=== PATIENT | male | born 1945 | race Caucasian/White ===

== ENCOUNTER 2019-10-29 13:37 | Outpatient (CLI) | payer MEDICARE, SELFPAY ==
[2019-10-29 15:01] LABS: Prostate Specific Antigen < 0.1 ng/mL (< OR = 4.0)
== END 2019-10-29 13:38 | disposition home or self-care (01) ==
LOC: CHSLAB 13:46
PROVIDERS: PCP Internal Medicine
DX: C61 Malignant neoplasm of prostate (principal)
CPT/HCPCS: 36415; 84153

== ENCOUNTER 2019-12-14 12:58 | Outpatient (CLI) | payer MEDICARE, OTHER, SELFPAY | END 2019-12-14 12:59 | disposition home or self-care (01) | LOC: CHSTREATRM 13:02 | PROVIDERS: PCP Internal Medicine; Visit Provider Internal Medicine | DX: D50.9 Iron deficiency anemia, unspecified (principal) | CPT/HCPCS: 96365; 96366; J1756; J7050 ==

== ENCOUNTER 2019-12-21 11:29 | Outpatient (CLI) | payer MEDICARE, OTHER, SELFPAY ==
[2019-12-21] MEDS: IRON SUCROSE COMPLEX 250 MG in SODIUM CHLORIDE 0.9% IV 250 ML 125 MG IVPB (12:03)
--- NOTE | 2019-12-21 14:13 | PC.NURSE ---
Patient here for #2 of 2 Venofer infusions. No concerns. Venofer infusion administered. Tolerated it well. Safe exit of hospital.
== END 2019-12-21 11:30 | disposition home or self-care (01) ==
PROVIDERS: PCP Internal Medicine; Visit Provider Internal Medicine
DX: D50.9 Iron deficiency anemia, unspecified (principal)
CPT/HCPCS: 96365; 96366; J1756; J7050

== ENCOUNTER 2020-05-06 08:30 | Outpatient (CLI) | payer MEDICARE, SELFPAY ==
[2020-05-06 10:22] LABS: Prostate Specific Antigen < 0.1 ng/mL (< OR = 4.0)
[2020-05-10 09:03] LABS: Testosterone Total 9 ng/dL (250-1100)
== END 2020-05-06 08:31 | disposition home or self-care (01) ==
LOC: CHSLAB 08:33
PROVIDERS: PCP Internal Medicine
DX: C61 Malignant neoplasm of prostate (principal)
CPT/HCPCS: 36415; 84153; 84403

== ENCOUNTER 2020-08-15 15:28 | Emergency (ER) | payer MEDICARE, OTHER, SELFPAY ==
--- NOTE | ~2020-08-15 | XR_ITS ---
EXAMINATION: XR chest 2V DATE: 08/15/2020 16:40 INDICATION: Shortness of breath and cough. TECHNIQUE: Frontal and lateral views of the chest were obtained. COMPARISON: Chest single view 08/20/2014, CT abdomen and pelvis 04/05/2019 FINDINGS: There is mild atelectasis at left lung base. No pleural effusion or pneumothorax. The heart size is normal. There are surgical clips in the abdomen. IMPRESSION: 1. Mild atelectasis at left lung base. Reviewed, dictated and finalized at location A. AMMONIA OPERATOR
[2020-08-15 15:30] VITALS: BP 90/62; PULSE 86; RESP 18; TEMP 36.3; O2SAT 97
[2020-08-15 16:00] VITALS: PULSE 86; RESP 16; O2SAT 98
[2020-08-15 16:02] LABS: Basophils Absolute Auto 0.02 K/mm3 (0.00-0.10); Basophils Percent Auto 0.2 % (0.0-1.0); Eosinophils Absolute Auto 0.02 K/mm3 (0.02-0.50); Eosinophils Percent Auto 0.2 % (1.0-6.0); Hematocrit 38.5 % (37.0-46.0); Hemoglobin 12.5 g/dL (12.4-15.3); Immature Granulocyte Absolute 0.05 K/mm3 (0.00-0.00); Immature Granulocyte Percent A 0.4 % (0.0-0.0); Lymphocytes Absolute Auto 0.81 K/mm3 (1.10-4.50); Lymphocytes Percent Auto 7.2 % (18.0-42.0); Mean Corpuscular HGB Conc 32.5 g/dL (32.0-36.0); Mean Corpuscular Hemoglobin 36.9 pg (27.0-31.0); Mean Corpuscular Volume 113.6 fL (78.0-102.0); Mean Platelet Volume 9.1 fl (8.7-11.0); Monocytes Absolute Auto 0.61 K/mm3 (0.10-0.90); Monocytes Percent Auto 5.5 % (2.0-11.0); Neutrophils Absolute Auto 9.7 K/mm3 (1.7-7.2); Neutrophils Percent Auto 86.5 % (50.0-70.0); Platelet Count Result 161 K/mm3 (150-420); Red Blood Count 3.39 M/mm3 (4.70-6.10); White Blood Count 11.2 K/mm3 (4.8-10.8)
[2020-08-15 16:07] VITALS: PULSE 85; RESP 16; O2SAT 99
[2020-08-15] MEDS: IPRATROPIUM 0.5 MG/ALBUTEROL SULFATE 2.5 MG AMPUL.NEB 3 ML INHALATION (16:07)
[2020-08-15 16:16] LABS: Alanine Aminotransferase 16 U/L (16-63); Albumin Level 3.6 g/dL (3.4-5.0); Alkaline Phosphatase 62 U/L (46-116); Anion Gap 13 mmol/L (8-16); Aspartate Amino Transferase 21 U/L (15-37); Bilirubin,Total 0.4 mg/dL (0.00-1.00); Blood Urea Nitrogen 29 mg/dL (7-18); Calcium 9.8 mg/dL (8.5-10.1); Carbon Dioxide 19 mmol/L (21-32); Chloride 105 mmol/L (98-108); Estimated CRCL calculation 42 ml/min; Estimated Glomerular Filt Rate 49; Glucose 98 mg/dL (70-99); Osmolality Calculated 289 mOsm/kg (285-295); Sodium 137 mmol/L (136-145); Total Protein 6.9 g/dL (6.4-8.2)
[2020-08-15 16:19] LABS: BNP 189 pg/mL (0-100); SARS-CoV-2 Ag Negative (Negative)
[2020-08-15 16:20] LABS: Influenza Control Valid (Valid)
[2020-08-15 16:21] LABS: Lactic Acid Reflex 1.2 mmol/L (0.4-2.0)
--- NOTE | 2020-08-15 16:47 | ED.URI ---
HPI - URI/Sore Throat General Chief Complaint: Upper Respiratory Infection Stated Complaint: chest congestion,cough,head congestion Source: patient Mode of arrival: ambulatory Limitations: no limitations History of Present Illness HPI Narrative: This is a 74-year-old presents with a 2 day history of mild shortness of breath with a cough that is productive of white sputum has a history of COPD and CHF currently there is no audible wheezing no fever chills no chest pain or pressure no peripheral edema no nausea vomiting no abdominal pain no COVID exposure. MD elicited complaint: cough, sore throat, rhinorrhea and nasal congestion Onset (ago): day(s) Severity: mild Description of mucous: clear Able to tolerate fluids by mouth: Yes Exacerbating factors: exertion Relieving factors: rest Associated symptoms: shortness of breath Related Data Home Medications Medication Instructions Recorded Confirmed acyclovir 400 mg PO TID 08/15/20 08/15/20 albuterol sulfate [ProAir HFA] 2 puff INHALATION QID PRN 08/15/20 08/15/20 aspirin 81 mg PO DAILY 08/15/20 08/15/20 atenolol 50 mg PO DAILY 08/15/20 08/15/20 bicalutamide 50 mg PO DAILY 08/15/20 08/15/20 cetirizine 5 mg PO DAILY 08/15/20 08/15/20 cholecalciferol (vitamin D3) 25 mcg PO DAILY 08/15/20 08/15/20 [Vitamin D3] clopidogrel 75 mg PO DAILY 08/15/20 08/15/20 cyanocobalamin (vitamin B-12) 1,000 mcg MONTHLY 08/15/20 08/15/20 gabapentin 300 mg PO TID 08/15/20 08/15/20 hydrocodone-acetaminophen 1 tablet PO Q6H PRN 08/15/20 08/15/20 montelukast 10 mg PO DAILY 08/15/20 08/15/20 pantoprazole 40 mg PO QAM 08/15/20 08/15/20 pravastatin 10 mg PO HS 08/15/20 08/15/20 prednisone 5 mg PO DAILY 08/15/20 08/15/20 spironolactone 25 mg PO DAILY 08/15/20 08/15/20 tiotropium-olodaterol [Stiolto 2 puff INHALATION DAILY 08/15/20 08/15/20 Respimat] venlafaxine 75 mg PO QPM 08/15/20 08/15/20 verapamil 120 mg PO HS 08/15/20 08/15/20 Allergies Allergy/AdvReac Type Severity Reaction Status Date / Time lisinopril Allergy Severe Swelling Verified 07/03/18 09:46 meperidine Allergy Severe Dyspnea / Verified 07/03/18 09:46 SOB ciprofloxacin Allergy Mild Itching Verified 07/03/18 09:46 Review of Systems Review of Systems: All systems reviewed & are unremarkable except as noted in HPI and below PMFSH Past Medical History Medical History CHF (congestive heart failure) COPD (chronic obstructive pulmonary disease) Family History Family History Father Hypertension Family history of arthritis Family history of malignant neoplasm Social History Social History Smoking status: Heavy tobacco smoker Exam Const: General: no acute distress and alert Orientation/consciousness: patient oriented x3 HENMT: Head: normal to inspection Eyes: Conjunctivae: conjunctivae normal Pupils: Equal, round and reactive pupils present Neck: Neck: normal visual inspection Chest: Chest palpation & inspection: normal inspection of the chest Resp: Effort & Inspection: normal respiratory effort Auscultation: clear to auscultation bilaterally Cardio: Rate: regular rate Rhythm: regular rhythm GI: GI Palp: Yes Soft to palpation Auscultation: normal bowel sounds Urinary Catheter: Urinary Catheter: patent and draining Skin: General skin exam: normal color Rashes: no rashes Extrem: General: normal to inspection and no pedal edema Psych: Appearance: grossly normal Mental Status: mental status grossly normal Course Course Emergency Course: reassessment of patient appears comfortable after a nebulizer treatment and inform patient of lab and x-ray results. Vital Signs Vital signs: Vital Signs Temperature 36.3 C L 08/15/20 15:30 Pulse Rate 86 08/15/20 15:30 Respiratory Rate 18 08/15/20 15:30 Blood Pressure 90/62 L 08/15/20 1
[2020-08-15 17:01] VITALS: BP 135/71; PULSE 85; RESP 14; O2SAT 95
[2020-08-15] MEDS: AZITHROMYCIN 250 MG TABLET 500 MG PO (17:05)
== END 2020-08-15 17:08 | disposition home or self-care (01) ==
PROVIDERS: Emergency Provider Emergency Medicine; PCP Internal Medicine
DX: J40 Bronchitis, not specified as acute or chronic (principal); J44.9 Chronic obstructive pulmonary disease, unspecified
CPT/HCPCS: 36415; 71046; 80053; 83605; 83880; 85025; 87040; 87426; 87804; 94640; 99283; A9270

== ENCOUNTER 2020-09-01 12:03 | Outpatient (CLI) | payer MEDICARE, SELFPAY ==
[2020-09-01 13:07] LABS: SARS-CoV-2 Ag Negative (Negative)
== END 2020-09-01 12:04 | disposition home or self-care (01) ==
LOC: CHSLAB 12:05
PROVIDERS: PCP Internal Medicine; Visit Provider Internal Medicine
DX: Z20.828 Contact with and (suspected) exposure to other viral communicable diseases (principal)
CPT/HCPCS: 87426

== ENCOUNTER 2020-09-23 14:18 | Outpatient (CLI) | payer MEDICARE, SELFPAY ==
[2020-09-23 14:57] LABS: SARS-CoV-2 Ag Negative (Negative)
== END 2020-09-23 14:19 | disposition home or self-care (01) ==
LOC: CHSLAB 14:20
PROVIDERS: PCP Internal Medicine; Visit Provider Internal Medicine
DX: Z20.828 Contact with and (suspected) exposure to other viral communicable diseases (principal)
CPT/HCPCS: 87426; C9803

== ENCOUNTER 2020-10-27 13:13 | Outpatient (CLI) | payer MEDICARE, SELFPAY ==
--- NOTE | ~2020-10-27 | XR_ITS ---
EXAMINATION: XR chest 2V 10/27/2020 14:07 INDICATION: Cough with fatigue. Covid exposure. PROCEDURE: 2 view chest COMPARISON: Comparison to multiple prior studies sequentially, with oldest reviewed study dated 07/21. FINDINGS: The lungs are clear. The lungs are hyperinflated which is consistent with, but not diagnost ic of chronic obstructive pulmonary disease. The cardiomediastinal silhouette is within normal limits . There are no pleural effusions. There is no pneumothorax suspected. IMPRESSION: 1: NO ACUTE CARDIOPULMONARY DISEASE. Reviewed, dictated and finalized at location B. ESTIMATOR
[2020-10-27 14:51] LABS: BNP 269 pg/mL (0-100)
[2020-10-27 14:55] LABS: Anion Gap 11 mmol/L (8-16); Blood Urea Nitrogen 28 mg/dL (7-18); Calcium 9.8 mg/dL (8.5-10.1); Carbon Dioxide 23 mmol/L (21-32); Chloride 106 mmol/L (98-108); Estimated Glomerular Filt Rate 52; Glucose 109 mg/dL (70-99); Osmolality Calculated 296 mOsm/kg (285-295); Potassium 4.8 mmol/L (3.5-5.1); Sodium 140 mmol/L (136-145)
[2020-10-27 14:56] LABS: Alanine Aminotransferase 31 U/L (16-63); Albumin Level 3.9 g/dL (3.4-5.0); Alkaline Phosphatase 66 U/L (46-116); Aspartate Amino Transferase 26 U/L (15-37); Bilirubin,Total 0.3 mg/dL (0.00-1.00); Total Protein 6.8 g/dL (6.4-8.2)
[2020-10-27 14:59] LABS: SARS-CoV-2 Ag Positive (Negative)
[2020-10-27 15:01] LABS: Hematocrit 39.2 % (37.0-46.0); Hemoglobin 12.5 g/dL (12.4-15.3); Mean Corpuscular HGB Conc 31.9 g/dL (32.0-36.0); Mean Corpuscular Hemoglobin 36.3 pg (27.0-31.0); Red Blood Count 3.44 M/mm3 (4.70-6.10); White Blood Count 6.5 K/mm3 (4.8-10.8)
[2020-10-27 15:02] LABS: Basophils Percent Auto 0.6 % (0.0-1.0); Eosinophils Percent Auto 0.8 % (1.0-6.0); Immature Granulocyte Percent A 0.6 % (0.0-0.0); Lymphocytes Percent Auto 13.3 % (18.0-42.0); Mean Platelet Volume 9.7 fl (8.7-11.0); Monocytes Percent Auto 9.6 % (2.0-11.0); Neutrophils Percent Auto 75.1 % (50.0-70.0); Platelet Count Result 171 K/mm3 (150-420); Red Cell Distribution Width 12.6 % (11.6-14.4)
[2020-10-27 15:03] LABS: Basophils Absolute Auto 0.04 K/mm3 (0.00-0.10); Eosinophils Absolute Auto 0.05 K/mm3 (0.02-0.50); Immature Granulocyte Absolute 0.04 K/mm3 (0.00-0.00); Lymphocytes Absolute Auto 0.86 K/mm3 (1.10-4.50); Monocytes Absolute Auto 0.62 K/mm3 (0.10-0.90); Neutrophils Absolute Auto 4.9 K/mm3 (1.7-7.2)
== END 2020-10-27 13:14 | disposition home or self-care (01) ==
PROVIDERS: PCP Family Medicine; Visit Provider Family Medicine
DX: U07.1 COVID-19 (principal); R05 Cough; Z20.822 Contact with and (suspected) exposure to COVID-19; R53.83 Other fatigue; R06.02 Shortness of breath
CPT/HCPCS: 36415; 71046; 80053; 83880; 85025; 87426; C9803

== ENCOUNTER 2020-10-28 12:23 | Outpatient (CLI) | payer MEDICARE, OTHER, SELFPAY ==
[2020-10-28 13:00] VITALS: BP 140/70; PULSE 80; RESP 16; TEMP 36.4; O2SAT 96
[2020-10-28] MEDS: diphenhydrAMINE HCl CAP 25 MG CAPSULE PO (13:07)
[2020-10-28] MEDS: ACETAMINOPHEN 325 MG TABLET 650 MG PO (13:07)
[2020-10-28] MEDS: FAMOTIDINE 20 MG TABLET PO (13:08)
[2020-10-28 14:40] VITALS: BP 160/80; PULSE 64; RESP 14; TEMP 36.3; O2SAT 95
--- NOTE | 2020-10-28 14:43 | PC.NURSE ---
Patient here for Bamlanivimab IV infusion r/t covid + with high risk factors. Permit signed. Education given on medication. Bamlanivimab regimen administered. Tolerated well. No s/sx of reaction noted or reported. Safe exit of hospital.
== END 2020-10-28 12:24 | disposition home or self-care (01) ==
PROVIDERS: PCP Internal Medicine; Visit Provider Internal Medicine
DX: Z23 Encounter for immunization (principal); U07.1 COVID-19; R05 Cough; R51.9 Headache, unspecified; R06.02 Shortness of breath
CPT/HCPCS: 96365; A9270; J7050; M0239; Q0239

== ENCOUNTER 2020-12-01 15:08 | Outpatient (CLI) | payer MEDICARE, SELFPAY ==
[2020-12-01 16:46] LABS: Prostate Specific Antigen < 0.1 ng/mL (< OR = 4.0)
[2020-12-05 00:05] LABS: Testosterone Total 21 ng/dL (250-1100)
== END 2020-12-01 15:09 | disposition home or self-care (01) ==
LOC: CHSLAB 15:10
PROVIDERS: PCP Internal Medicine; Visit Provider Radiology Radiation Oncology
DX: C61 Malignant neoplasm of prostate (principal)
CPT/HCPCS: 36415; 84153; 84403

== ENCOUNTER 2021-02-09 20:18 | Emergency (ER) | payer MEDICARE, OTHER, SELFPAY ==
[2021-02-09 20:20] VITALS: BP 138/75; PULSE 84; RESP 20; TEMP 36.9; O2SAT 97
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
[2021-02-09] MEDS: cefTRIAXone 1 GM VIAL IM (21:00)
[2021-02-09] MEDS: NEOMYCIN/POLYMYXIN/BACITRACIN OINTMENT PACKET 1 PACKET TOPICAL (21:00)
[2021-02-09] MEDS: TETANUS,DIPHTHERIA,AC PERTUSSIS ADULT 0.5 ML (ADACEL) IM (21:00)
[2021-02-09 21:15] VITALS: BP 128/76; PULSE 76; RESP 20; TEMP 37; O2SAT 94
--- NOTE | 2021-02-09 21:22 | PC.NURSE ---
pt has bilateral arm skin tears as listed: Right forearm =2cm right forearm= 6 cm right top of hand=0.5cm right elbow=0.2cm left forearm=4cm left top hand=3cm left top hand=4 cm left wrist=1cm left hand=1cm close to knuckle 3rd digit left hand =1cm close to knuckle 2nd digit all wounds cleansed with wound cleanser, dried, edges placed together and steri strips applied.
== END 2021-02-09 21:15 | disposition home or self-care (01) ==
PROVIDERS: Emergency Provider Emergency Medicine; PCP Internal Medicine
DX: S51.812A Laceration without foreign body of left forearm, initial encounter (principal); S51.811A Laceration without foreign body of right forearm, initial encounter; Y04.0XXA Assault by unarmed brawl or fight, initial encounter
CPT/HCPCS: 90471; 90715; 96372; 99283; J0696

== ENCOUNTER 2021-03-03 13:16 | Outpatient (CLI) | payer MEDICARE, SELFPAY ==
[2021-03-03 14:42] LABS: SARS-CoV-2 RNA PCR Negative (Negative)
== END 2021-03-03 13:17 | disposition home or self-care (01) ==
LOC: CHSLAB 13:18
PROVIDERS: PCP Internal Medicine; Visit Provider Internal Medicine
DX: Z20.822 Contact with and (suspected) exposure to COVID-19 (principal)
CPT/HCPCS: C9803; U0003; U0005

== ENCOUNTER 2021-04-23 17:21 | Inpatient (IN) | payer MEDICARE, OTHER, SELFPAY ==
[2021-04-23] VITALS (10 sets, daily range): BP systolic 116–122; BP diastolic 68–77; PULSE 87–91; RESP 20–26; TEMP 37.7; O2SAT 95–99
--- NOTE | ~2021-04-23 | CT_ITS ---
EXAMINATION: CT abdomen pelvis wo con DATE: 04/24/2021 01:08 INDICATION: Abdominal pain TECHNIQUE: Computed tomography (CT) of the abdomen and pelvis was performed without intravenous contr ast. Automated exposure control and iterative reconstruction technique were employed. Exam dose: 594 .90 mGy-cm total exam DLP. COMPARISON: 04/05/2019 CT abdomen pelvis FINDINGS: There is prominent dense consolidation in the dependent right lower lobe, consistent with p neumonia or aspiration. There is mild discoid atelectasis in the left lower lobe. Cardiomegaly. No pericardial or pleural effusion. The gallbladder is distended; no gallbladder wall thickening or bile duct dilatation is evident. No h epatic space-occupying mass lesion is evident on this limited noncontrast examination is streak artif act from numerous surgical clips in the left upper quadrant. Normal splenic size. There is pancreatic atrophy. No pancreatic mass lesion or calcification or ductal dilatation is evident. The adrenal glands are unremarkable. There is bilateral perinephric stranding. There is mild fluid in the right paracolic gutter. No renal mass lesion is evident on this limited noncontrast examination. No urinary tract calculus or hydrour eteronephrosis. The urinary bladder is unremarkable. Status post hysterectomy. There is a suture line of the stomach. No bowel obstruction or intraperitoneal free air is detected. There are some small bowel air-fluid le vels but no abnormal small bowel dilatation. There is thickening of the wall of the right colon; infl ammatory or infectious colitis are considerations. There is extensive atherosclerotic calcification of the abdominal aorta and origins of the celiac and superior mesenteric and right renal arteries. 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 Bilateral left femoral artery stents. No intraperitoneal or retroperitoneal or pelvic mass lesion or adenopathy or ascites. No suspicious osteolytic or osteoblastic lesions are noted. 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 Bilateral femoral artery stents Reviewed, dictated and finalized at Location [facility]. Reviewed, dictated and finalized at location D. 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 Bilateral femoral arter y stents
--- NOTE | ~2021-04-23 | XR_ITS ---
EXAMINATION: XR chest 1V portable INDICATION: Shortness of breath and hypoxia TECHNIQUE: Portable AP chest at 0814 hours COMPARISON: 04/25/2021 FINDINGS: Airspace opacities of the lung bases and right midlung zone persists without significant ch tom. There is a small right pleural effusion. No pneumothorax is identified. The cardiomediastinal s ilhouette is normal. IMPRESSION: 1. Stable opacities of the lung bases and right midlung zone, consistent with atelectasis versus pneu monia. 2. Small right pleural effusion. Reviewed, dictated and finalized at location B. IMPRESSION: 1. Stable opacities of the lung bases and right midlung zone, consistent with a telectasis versus pneumonia. 2. Small right pleural effusion.
--- NOTE | ~2021-04-23 | XR_ITS ---
XR chest 1V portable 04/25/2021 09:57 Indication: Dyspnea. Decreased lung sounds. Increased oxygen needs. Procedure: AP portable chest Comparison: Comparison to multiple prior studies sequentially, with oldest reviewed study dated 11/08 13. Findings: Developing bibasilar airspace disease, compatible with pneumonia. Small pleural effusions. No pneumothorax. No acute osseous abnormality. Impression: 1: Developing bibasilar airspace disease, compatible with pneumonia. Reviewed, dictated and finalized at location A. Impression: 1: Developing bibasilar airspace disease, compatible with pneumonia.
--- NOTE | ~2021-04-23 | NM_ITS ---
EXAMINATION: NM pulmonary perfusion DATE: 04/24/2021 14:04 INDICATION: Shortness of breath. Elevated d-dimer. Prior bilateral deep venous thrombosis. TECHNIQUE: 5.2 mCi Tc-99m MAA by intravenous route. Scintigraphic images of the chest were obtained. COMPARISON: Chest radiograph dated 04/23/2021 FINDINGS: Multiple bilateral perfusion defects. In the left lung these include moderate sized perfusion defects in the anteromedial basal and posterior basal segments of the left lower lobe. In the right lung the se include moderate sized defects in the posterior basal, lateral basal and anterobasal segments of t he right lower lobe and small defect in the anterior segment of the right upper lobe. IMPRESSION: 1. High probability for pulmonary embolism. Dr. Herrmann discussed these findings with Jack Sunshine 2:40 PM Reviewed, dictated and finalized at location A. IMPRESSION: 1. High probability for pulmonary embolism. Dr. Herrmann discussed these findi ngs with Jack Proctor N.P. 2:40 PM
--- NOTE | ~2021-04-23 | XR_ITS ---
EXAMINATION: XR chest 1V portable DATE: 04/23/2021 18:08 INDICATION: Shortness of breath. TECHNIQUE: A single frontal view of the chest was obtained. COMPARISON: Chest 2 views 10/27/2020, CT abdomen and pelvis 04/05/2019 FINDINGS: There is mild atelectasis at the lung bases. No pleural effusion or pneumothorax. The heart size is normal. There are surgical clips in the abdomen. IMPRESSION: 1. Mild atelectasis at the lung bases. Reviewed, dictated and finalized at location A.
--- NOTE | 2021-04-23 17:49 | ED.GENADULT ---
HPI - General Adult General Chief complaint: Shortness of Breath/Dyspnea Stated complaint: AMB Time Seen by Provider: 04/23/21 17:50 Source: patient Mode of arrival: ambulatory Limitations: no limitations History of Present Illness HPI narrative: Patient comes in not feeling well. He complains of having right flank pain and being short of breath. He also has complained of shortness of breath. Shortness of breath has been mild, ongoing for hours, and of duration for 3 days. Onset (ago): day(s) Radiation: non-radiation Severity: mild Relieving factors: none Exacerbating factors: movement Associated symptoms: denies other symptoms Treatments prior to arrival: none Related Data Home Medications Medication Instructions Recorded Confirmed albuterol sulfate [ProAir HFA] 2 puff INHALATION QID PRN 08/15/20 04/23/21 aspirin 81 mg PO DAILY 08/15/20 04/23/21 atenolol 50 mg PO DAILY 08/15/20 04/23/21 bicalutamide 50 mg PO DAILY 08/15/20 04/23/21 cholecalciferol (vitamin D3) 25 mcg PO DAILY 08/15/20 04/23/21 [Vitamin D3] clopidogrel 75 mg PO DAILY 08/15/20 04/23/21 cyanocobalamin (vitamin B-12) 1,000 mcg MONTHLY 08/15/20 04/23/21 gabapentin 300 mg PO TID 08/15/20 04/23/21 hydrocodone-acetaminophen 1 tablet PO Q6H PRN 08/15/20 04/23/21 montelukast 10 mg PO DAILY 08/15/20 04/23/21 pantoprazole 40 mg PO QAM 08/15/20 04/23/21 pravastatin 10 mg PO HS 08/15/20 04/23/21 prednisone 5 mg PO DAILY 08/15/20 04/23/21 spironolactone 25 mg PO DAILY 08/15/20 04/23/21 tiotropium-olodaterol [Stiolto 2 puff INHALATION DAILY 08/15/20 04/23/21 Respimat] venlafaxine 75 mg PO QPM 08/15/20 04/23/21 verapamil 120 mg PO HS 08/15/20 04/23/21 Allergies Allergy/AdvReac Type Severity Reaction Status Date / Time lisinopril Allergy Severe Swelling Verified 07/03/18 09:46 meperidine Allergy Severe Dyspnea / Verified 07/03/18 09:46 SOB ciprofloxacin Allergy Mild Itching Verified 07/03/18 09:46 Review of Systems Constitutional: Constitutional: Reports no additional constitutional complaints Eyes: Eyes: Reports no additional eye complaints ENT: Reports system reviewed and no additional complaints, except as documented Cardiovascular: Cardiovascular: Reports no additional cardiovascular complaints Respiratory: Respiratory: Reports no additional respiratory complaints Gastrointestinal: Gastrointestinal: Reports no additional gastrointestinal complaints Genitourinary: Genitourinary: Reports no additional male genitourinary complaints Musculoskeletal: Musculoskeletal: Reports no additional musculoskeletal complaints Integumentary/Breasts: Skin/Breast: Reports system reviewed and no additional complaints, except as docu Neurologic: Reports system reviewed and no additional complaints, except as documented Psychiatric: Psychiatric: Reports no additional psychiatric complaints Endocrine: Endocrine: Reports no additional endocrine complaints Hematologic/Lymphatic: Hematologic/Lymphatic: Reports no additional hematologic/lymphatic complaints Allergic/Immunologic: Allergic/Immunologic: Reports no additional allergic/immunologic complaints [facility] Past Medical History Medical History CHF (congestive heart failure) COPD (chronic obstructive pulmonary disease) Family History Family History Father Hypertension Family history of arthritis Family history of malignant neoplasm Social History Social History Smoking status: Former smoker Tobacco type: cigarettes Second hand tobacco smoke exposure: Yes Alcohol intake: former Substance use: never Gender identity (if verbalized by the patient): Male Sexual Orientation (if Verbalized by the Patient): Straight or Heterosexual Spiritual care concerns: No Exam Const: General: no acute distress and alert Orientation/consciousne
--- NOTE | 2021-04-23 17:52 | ECG_ITS ---
Measurements Intervals [place] Rate: 88 P: 62 NM: 148 QRS: 98 QRSD: 92 T: 53 QT: 307 QTc: 372 Interpretive Statements SINUS RHYTHM RIGHT AXIS DEVIATION BORDERLINE R WAVE PROGRESSION, ANTERIOR LEADS BORDERLINE T WAVE ABNORMALITY- ANTERIOR LEADS BASELINE ARTIFACT- I, II, III, AVR, AVL, AVF, V1-V3 BORDERLINE ECG Electronically Signed On 04-23-2021 19:58:07 CDT by Suman Ortiz D.O.
[2021-04-23 18:22] LABS: Hematocrit 39.9 % (37.0-46.0); Hemoglobin 12.6 g/dL (12.4-15.3); Mean Corpuscular HGB Conc 31.6 g/dL (32.0-36.0); Mean Corpuscular Hemoglobin 35.9 pg (27.0-31.0); Mean Corpuscular Volume 113.7 fL (78.0-102.0); Mean Platelet Volume 9.2 fl (8.7-11.0); Platelet Count Result 163 K/mm3 (150-420); Red Blood Count 3.51 M/mm3 (4.70-6.10); Red Cell Distribution Width 13.2 % (11.6-14.4); White Blood Count 15.5 K/mm3 (4.8-10.8)
[2021-04-23 18:38] LABS: D Dimer 3.05 mg/L (0.19-0.50)
[2021-04-23 18:42] LABS: Band Neutrophils Percent 0 % (0-6); Basophils Percent Manual 0 % (0-1); Eosinophils Percent Manual 0 % (1-6); Lymphocytes Absolute Manual 1.24 K/mm3 (1.1-4.5); Lymphocytes Percent Manual 8 % (18-44); Monocytes Absolute Manual 1.39 K/mm3 (0.1-0.90); Monocytes Percent Manual 9 % (3-9); Neutrophils Absolute Manual 12.86 K/mm3 (1.3-6.7); Neutrophils Percent Manual 83 % (46-73)
[2021-04-23 18:43] LABS: Alanine Aminotransferase 18 U/L (16-63); Albumin Level 3.3 g/dL (3.4-5.0); Alkaline Phosphatase 45 U/L (46-116); Anion Gap 15 mmol/L (8-16); Aspartate Amino Transferase 22 U/L (15-37); Bilirubin,Total 0.3 mg/dL (0.00-1.00); Blood Urea Nitrogen 44 mg/dL (7-18); Calcium 9.9 mg/dL (8.5-10.1); Carbon Dioxide 17 mmol/L (21-32); Chloride 108 mmol/L (98-108); Estimated CRCL calculation 30 ml/min; Estimated Glomerular Filt Rate 34; Glucose 96 mg/dL (70-99); Magnesium 0.9 mg/dL (1.8-2.4); NT Pro B Type Natriuretic Pept 4544 pg/mL (0-125); Osmolality Calculated 301 mOsm/kg (285-295); Platelet Estimate Adequate (Adequate); Potassium 5.8 mmol/L (3.5-5.1); Sodium 140 mmol/L (136-145); Total Protein 6.6 g/dL (6.4-8.2); Troponin I 8.3 ng/L (0.00-60.4)
[2021-04-23 19:00] LABS: INR 1.1; Partial Thromboplastin Time 25.4 SEC (23.90-30.70); Prothrombin Time 11.3 Seconds (9.50-12.10)
--- NOTE | 2021-04-23 19:00 | PC.NURSE ---
Care resumed by this RN, pt noted shivering upon entering room. Pt repositioned, labs discussed c GISSELLE Dickerson and awaiting new orders.
--- NOTE | 2021-04-23 19:14 | PC.NURSE ---
pt pale, repositioned on stretcher. pt had removed bp cuff and spo2 sensors, replaces spo2 sensor and bp cuff.
--- NOTE | 2021-04-23 19:21 | PC.NURSE ---
report to mehdi stewart
[2021-04-23 19:59] LABS: Base Excess ABG -10.5 mmol/L (0-2); HCO3 ABG 13.5 mmol/L (23-29); Oxygen Content ABG 16.5 %vol (16.0-22.0); Oxyhemoglobin 94.7 % (94-100); PO2 ABG 83.4 mmHg (75-85); Total Hemoglobin 12.3 g/dL (12.0-18.0); pH ABG 7.35 (7.35-7.45)
[2021-04-23 20:00] LABS: Device NASAL CANNULA; Modified Allen's Test Pass; Site Drawn LEFT RADIAL
[2021-04-23] MEDS: ENOXAPARIN 100 MG/ML SYRINGE 70 MG SUB-Q (20:16)
[2021-04-23] MEDS: ENOXAPARIN 1 MG/KG 70 MG SUB-Q (20:16)
[2021-04-23] MEDS: SODIUM CHLORIDE 0.9% IV 1,000 ML 125 ML IV CONT (20:17)
[2021-04-23] MEDS: SODIUM CHLORIDE 0.9% IV 1,000 ML 999 ML IV CONT (21:00)
[2021-04-23 22:09] LABS: Add Urine Microscopic? YES; Appearance Urine Clear (Clear); Bilirubin Urine Negative (Negative); Blood Urine 1+ (Negative); Color Urine Light Yellow (Yellow); Glucose Urine UA Negative (Negative); Ketones Urine Negative (Negative); Leukocyte Esterase Ur Negative LEU/UL (Negative); Nitrate Urine Negative (Negative); Protein Urine Trace (Negative); Urobilinogen Urine 0.2 mg/dL (0.2-1.0)
[2021-04-23 22:14] LABS: Bacteria Urine None seen /hpf; Squamous Epithelial Cell Urine None seen /hpf (Few); WBC Urine 0-3 /hpf (0-3)
[2021-04-23 22:56] LABS: Reflex Lactic Acid Yes or No Add Lactic
[2021-04-23 23:35] LABS: Lactic Acid 2.8 mmol/L (0.4-2.0)
[2021-04-24] VITALS (13 sets, daily range): BP systolic 97–145; BP diastolic 58–76; PULSE 60–90; RESP 18–22; TEMP 37–38.8; O2SAT 92–100
[2021-04-24 00:35] LABS: Influenza Control Valid (Valid); SARS-CoV-2 Ag Negative (Negative)
--- NOTE | 2021-04-24 01:00 | PC.NURSE ---
ERP informed of pts temp of 101.8, KONG Lindsey notified on 2 M/S of pts increased temp and that ERP will put in new orders for pt admission.
[2021-04-24] MEDS: SODIUM CHLORIDE 0.9% IV 500 ML IV CONT (01:35)
[2021-04-24] MEDS: GABAPENTIN 300 MG CAPSULE (01:55)
[2021-04-24] MEDS: VERAPAMIL HCL ER 120 MG TABLET (02:00)
[2021-04-24] MEDS: HYDROcodone/acetaminophen (*CRX) 7.5-325 MG TABLET 1 TAB PO ×3 (02:01→13:30)
[2021-04-24] MEDS: VERAPAMIL HCL ER 120 MG TABLET PO ×2 (02:02→21:36)
[2021-04-24] MEDS: GABAPENTIN 300 MG CAPSULE PO ×4 (02:02→17:40)
--- NOTE | 2021-04-24 02:47 | PC.NURSE ---
Dr. Dickerson called to give new orders; Orders received and noted.
--- NOTE | 2021-04-24 03:09 | ADMGEN ---
This patient, Isaac Riddle, was admitted to 2nd Floor Room 207-A at 0135. Patient/family oriented to hospital policies and general routines including ID bracelet, bed and alarms, visiting hours, pain management, procedures, bathroom and other care routines, personal items, smoking policy, room service/diet, and visiting hours. Information on how to activate the Rapid Response Team has been discussed. Patient/Family are encouraged to report perceived risks to care and to ask questions if they do not understand what they are told or what they should do.
[2021-04-24] MEDS: ACETAMINOPHEN 325 MG TABLET 650 MG PO ×2 (03:31→21:35)
[2021-04-24] MEDS: SODIUM CHLORIDE 0.9% IV 500 ML (04:01)
[2021-04-24] MEDS: SODIUM CHLORIDE 0.9% IV 1,000 ML 125 ML IV CONT (07:09)
[2021-04-24] MEDS: predniSONE 5 MG TABLET PO (07:32)
[2021-04-24] MEDS: PANTOPRAZOLE 40 MG TABLET PO (08:54)
[2021-04-24] MEDS: ASPIRIN 81 MG ENTERIC TABLET PO (08:54)
[2021-04-24] MEDS: MONTELUKAST SODIUM 10 MG TABLET PO (08:54)
[2021-04-24] MEDS: CHOLECALCIFEROL 1,000 UNITS TABLET 1000 UNITS PO (08:56)
[2021-04-24] MEDS: atenoloL 50 MG TABLET PO (08:56)
[2021-04-24] MEDS: SPIRONOLACTONE 25 MG TABLET PO (08:57)
[2021-04-24 10:10] LABS: Hematocrit 33.3 % (37.0-46.0); Hemoglobin 10.4 g/dL (12.4-15.3); Mean Corpuscular HGB Conc 31.2 g/dL (32.0-36.0); Mean Corpuscular Hemoglobin 35.9 pg (27.0-31.0); Mean Corpuscular Volume 114.8 fL (78.0-102.0); Mean Platelet Volume 9.1 fl (8.7-11.0); Platelet Count Result 114 K/mm3 (150-420); Red Cell Distribution Width 13.4 % (11.6-14.4); White Blood Count 12.1 K/mm3 (4.8-10.8)
[2021-04-24 10:24] LABS: Alanine Aminotransferase 18 U/L (16-63); Albumin Level 2.2 g/dL (3.4-5.0); Alkaline Phosphatase 39 U/L (46-116); Anion Gap 14 mmol/L (8-16); Aspartate Amino Transferase 57 U/L (15-37); Bilirubin,Total 0.3 mg/dL (0.00-1.00); Blood Urea Nitrogen 45 mg/dL (7-18); Calcium 8.6 mg/dL (8.5-10.1); Carbon Dioxide 17 mmol/L (21-32); Chloride 110 mmol/L (98-108); Estimated CRCL calculation 33 ml/min; Estimated Glomerular Filt Rate 38; Glucose 84 mg/dL (70-99); Magnesium 1.9 mg/dL (1.8-2.4); Osmolality Calculated 302 mOsm/kg (285-295); Potassium 5.2 mmol/L (3.5-5.1); Sodium 141 mmol/L (136-145); Total Protein 5.2 g/dL (6.4-8.2)
[2021-04-24 11:00] LABS: Band Neutrophils Percent 7 % (0-6); Basophils Percent Manual 0 % (0-1); Eosinophils Percent Manual 0 % (1-6); Lymphocytes Absolute Manual 0.48 K/mm3 (1.1-4.5); Lymphocytes Percent Manual 4 % (18-44); Metamyelocytes Percent 4 %; Monocytes Absolute Manual 0.84 K/mm3 (0.1-0.90); Monocytes Percent Manual 7 % (3-9); Myelocytes Percent 1 %; Neutrophils Absolute Manual 10.16 K/mm3 (1.3-6.7); Neutrophils Percent Manual 77 % (46-73); Platelet Estimate Adequate (Adequate); Total Cells Counted 100
[2021-04-24 12:30] LABS: Reflex Lactic Acid Yes or No No Lactic Reflex
--- NOTE | 2021-04-24 13:35 | PC.NURSE ---
To imaging for VQ scan of lungs
[2021-04-24] MEDS: SODIUM CHLORIDE 0.9% IV 1,000 ML 200 ML IV CONT (14:04)
[2021-04-24] MEDS: ENOXAPARIN 100 MG/ML SYRINGE 70 MG SUB-Q (14:06)
--- NOTE | 2021-04-24 17:09 | PM.IMHP ---
H&P: HPI History of Present Illness Date/Time: 04/24/21 17:09 Isaac Riddle is a 75 y/o who is being admitted for Sepsis, Pneumonia, Hypomagnesemia, Elevated D-Dimer, PE, Acute on Chronic Renal Failure, Hyperkalemia, and CHF. Pt c/c was Right flank pain and SOB that has been ongoing for the past 4 days. He has been coughing up green sputum. Other symptoms include shaking, dizziness, lower rib pain from coughing, back pain at his kidneys, feeling chills, and a headache when he coughs. He denies CP, abdominal pain, fevers, nausea, vomiting, changes in bowel and bladder function. PMHx includes: COPD. Depression, A fib, CKD, HTN, Prostate CA. <JOAQUÍN Damon - Last Filed: 04/24/21 18:37> Chief Complaint: Right Flank Pain and SOB <JOAQUÍN Damon - Last Filed: 04/24/21 18:37> Review of Systems Review of Systems: All systems reviewed & are unremarkable except as noted in HPI and below <JOAQUÍN Damon - Last Filed: 04/24/21 18:37> ENT: Comments: pain at edges of tongue and a little in the middle <JOAQUÍN Damon - Last Filed: 04/24/21 18:37> Genitourinary: Comments: treated for prostate CA with radiation unsure about chemo <JOAQUÍN Damon - Last Filed: 04/24/21 18:37> FOR[facility], LAT[facility] Past Medical History Medical History: Medical History (Updated 04/24/21 @ 17:48 by JOAQUÍN Damon) CHF (congestive heart failure) COPD (chronic obstructive pulmonary disease) Left wrist pain Prostate cancer <JOAQUÍN Damon - Last Filed: 04/24/21 18:37> Surgical History Surgical History: Surgical History (Updated 04/24/21 @ 17:48 by JOAQUÍN Damon) History of appendectomy History of cataract surgery History of hemorrhoidectomy History of vagotomy <JOAQUÍN Damon - Last Filed: 04/24/21 18:37> Family History Family History: Family History Father Hypertension Family history of arthritis Family history of malignant neoplasm <JOAQUÍN Damon - Last Filed: 04/24/21 18:37> Social History Social History: Social History Smoking status: Former smoker Tobacco type: cigarettes Second hand tobacco smoke exposure: Yes Alcohol intake: former Substance use: never Gender identity (if verbalized by the patient): Male Sexual Orientation (if Verbalized by the Patient): Straight or Heterosexual Spiritual care concerns: No <JOAQUÍN Damon - Last Filed: 04/24/21 18:37> Meds Home Medications and Allergies Home medications: Home Medications Medication Instructions Recorded Confirmed Type albuterol sulfate [ProAir HFA] 2 puff INHALATION QID PRN 08/15/20 04/23/21 History aspirin 81 mg PO DAILY 08/15/20 04/23/21 History atenolol 50 mg PO DAILY 08/15/20 04/23/21 History bicalutamide 50 mg PO DAILY 08/15/20 04/23/21 History cholecalciferol (vitamin D3) 25 mcg PO DAILY 08/15/20 04/23/21 History [Vitamin D3] clopidogrel 75 mg PO DAILY 08/15/20 04/23/21 History cyanocobalamin (vitamin B-12) 1,000 mcg MONTHLY 08/15/20 04/23/21 History gabapentin 300 mg PO TID 08/15/20 04/23/21 History hydrocodone-acetaminophen 1 tablet PO Q6H PRN 08/15/20 04/23/21 History montelukast 10 mg PO DAILY 08/15/20 04/23/21 History pantoprazole 40 mg PO QAM 08/15/20 04/23/21 History pravastatin 10 mg PO HS 08/15/20 04/23/21 History prednisone 5 mg PO DAILY 08/15/20 04/23/21 History spironolactone 25 mg PO DAILY 08/15/20 04/23/21 History tiotropium-olodaterol [Stiolto 2 puff INHALATION DAILY 08/15/20 04/23/21 History Respimat] venlafaxine 75 mg PO QPM 08/15/20 04/23/21 History verapamil 120 mg PO HS 08/15/20 04/23/21 History <Eddie Proctor APN-Lisbet - Last Filed: 04/24/21 18:37> Allergies/Adverse reactions: Allergies Allergy/AdvReac Type Severity Reaction Status Date / Time lisinopril Allergy Severe Swelling Verified 07/03/18 09:46 meperidin
[2021-04-24] MEDS: VENLAFAXINE HCL XR 75 MG CAP.ER.24H PO (17:40)
--- NOTE | 2021-04-24 18:24 | PC.NURSE ---
Nicole called and asked to bring in patients Stiolto and Bicalutamide inhalers.
[2021-04-24] MEDS: PRAVASTATIN SODIUM 10 MG TABLET PO (21:36)
[2021-04-24] MEDS: LIDOCAINE HCL 2% VISC SOLN 15 ML UDC 2 ML PO (21:53)
[2021-04-25] VITALS (9 sets, daily range): BP systolic 121–161; BP diastolic 61–84; PULSE 70–95; RESP 18–22; TEMP 36.7–37.3; O2SAT 91–97
[2021-04-25] MEDS: HYDROcodone/acetaminophen (*CRX) 7.5-325 MG TABLET 1 TAB PO ×3 (00:55→17:05)
[2021-04-25] MEDS: SODIUM CHLORIDE 0.9% IV 1,000 ML 75 ML IV CONT ×2 (01:29→17:14)
[2021-04-25] MEDS: ENOXAPARIN 100 MG/ML SYRINGE 70 MG SUB-Q ×2 (01:32→11:33)
[2021-04-25 05:35] LABS: Hemoglobin 10.3 g/dL (12.4-15.3); Mean Corpuscular HGB Conc 33.2 g/dL (32.0-36.0); Mean Corpuscular Hemoglobin 37.5 pg (27.0-31.0); Mean Corpuscular Volume 112.7 fL (78.0-102.0); Mean Platelet Volume 9.5 fl (8.7-11.0); Platelet Count Result 120 K/mm3 (150-420); Red Blood Count 2.75 M/mm3 (4.70-6.10); Red Cell Distribution Width 13.2 % (11.6-14.4); White Blood Count 19.3 K/mm3 (4.8-10.8)
[2021-04-25 05:46] LABS: Anion Gap 15 mmol/L (8-16); Blood Urea Nitrogen 42 mg/dL (7-18); Carbon Dioxide 16 mmol/L (21-32); Chloride 104 mmol/L (98-108); Estimated CRCL calculation 39 ml/min; Estimated Glomerular Filt Rate 47; Glucose 76 mg/dL (70-99); Magnesium 1.7 mg/dL (1.8-2.4); Osmolality Calculated 289 mOsm/kg (285-295); Potassium 4.6 mmol/L (3.5-5.1); Sodium 135 mmol/L (136-145)
[2021-04-25 05:56] LABS: Lactic Acid Reflex 0.9 mmol/L (0.4-2.0)
[2021-04-25 06:24] LABS: NT Pro B Type Natriuretic Pept 8518 pg/mL (0-125)
[2021-04-25 08:34] LABS: Base Excess ABG -9.8 mmol/L (0-2); HCO3 ABG 13.9 mmol/L (23-29); Oxygen Content ABG 14.6 %vol (16.0-22.0); Oxygen Saturation ABG 92.6 % (95-97); Oxyhemoglobin 90.4 % (94-100); PCO2 ABG 24.7 mmHg (35-45); PO2 ABG 62.4 mmHg (75-85); Total Hemoglobin 11.5 g/dL (12.0-18.0); pH ABG 7.37 (7.35-7.45)
[2021-04-25 08:35] LABS: Device NASAL CANNULA; Modified Allen's Test Pass; Site Drawn RIGHT RADIAL
[2021-04-25] MEDS: CYANOCOBALAMIN 1,000 MCG TABLET 500 MCG PO (09:02)
[2021-04-25] MEDS: ASPIRIN 81 MG ENTERIC TABLET PO (09:02)
[2021-04-25] MEDS: PANTOPRAZOLE 40 MG TABLET PO (09:02)
[2021-04-25] MEDS: MONTELUKAST SODIUM 10 MG TABLET PO (09:02)
[2021-04-25] MEDS: predniSONE 5 MG TABLET PO (09:03)
[2021-04-25] MEDS: CLOPIDOGREL BISULFATE 75 MG TABLET PO (09:03)
[2021-04-25] MEDS: GABAPENTIN 300 MG CAPSULE PO ×3 (09:03→17:10)
[2021-04-25] MEDS: atenoloL 50 MG TABLET PO (09:03)
[2021-04-25] MEDS: CHOLECALCIFEROL 1,000 UNITS TABLET 1000 UNITS PO (09:03)
[2021-04-25] MEDS: MAGNESIUM SULF 2 GM/WATER 50ML 2 GM/50 ML BAG IVPB (09:13)
--- NOTE | 2021-04-25 09:19 | PM.IMPN ---
Progress Note: A&P Assessment and Plan (1) Sepsis: Code(s): A41.9 - Sepsis, unspecified organism <Eddie McleanJOAQUÍN yip - Last Filed: 04/25/21 14:10> Status: Acute <Eddie ProctorJOAQUÍN - Last Filed: 04/25/21 14:10> Assessment and Plan: Pneumonia, LA 3, Temp 101.8, Tachypnea, Acute on CRF, Metabolic Acidosis (pH 7.35, pCo2 25, HCO3 13.5), increased oxygen demand (Negative for COVID, Flu A/B), WBC 15.5, 2 L NS given in ER followed by 1 L on the floor, now NS at 75ml/h to avoid fluid overload (BNP 4544), Rocephin and Azithromycin, pocket creaser, 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 Jayla Rasmussen DC'ed Zosyn 2.25 Q6H restarted and continue with Azithromycin, Blood Cx Gram Negative Bacilli Aerobic bottle only. <Eddie MonroyJOAQUÍN Malloy - Last Filed: 04/25/21 14:10> (2) Pneumonia: Code(s): J18.9 - Pneumonia, unspecified organism <Eddie MonroyJOAQUÍN Malloy - Last Filed: 04/25/21 14:10> Status: Acute <Eddie MonroyJOAQUÍN Malloy - Last Filed: 04/25/21 14:10> Assessment and Plan: Abd/Pel CT report includes: Aspiration pneumonitis/pneumonia RLL, Cardiomegaly, NC 4L wean, VS Q4H, monitor SpO2, Blood Cx pending 04/25/2021 Ab as noted above, Zosyn and Azithromycin, increased L/min to 5-6 d/t pO2 of 62.4, Gram Neg Bacilli Aerobic bottle only <Eddie PorfirioJOAQUÍN Malloy - Last Filed: 04/25/21 14:10> (3) Pulmonary embolus: Qualifiers: Acute cor pulmonale presence: unspecified Chronicity: acute Pulmonary embolism type: other Qualified Code(s): I26.99 - Other pulmonary embolism without acute cor pulmonale <Eddie Proctor APN-C - Last Filed: 04/25/21 14:10> Code(s): I26.99 - Other pulmonary embolism without acute cor pulmonale <Eddie Proctor ELECTROPLATER HELPER-C - Last Filed: 04/25/21 14:10> Status: Acute <Eddie Proctor APN-C - Last Filed: 04/25/21 14:10> Assessment and Plan: VQ scan reading as High probability for pulmonary embolism, multiple Bilateral, Therapeutic Lovenox, Supplemental O2 04/25/2021 Continue Therapeutic Lovenox, will transition to a PO anticoagulant covered by his insurance. <Eddie Proctor JOHN-C - Last Filed: 04/25/21 14:10> (4) Elevated d-dimer: Code(s): R79.89 - Other specified abnormal findings of blood chemistry <Eddie Proctor ELECTROPLATER HELPER-C - Last Filed: 04/25/21 14:10> Status: Acute <Eddie Proctor APN-C - Last Filed: 04/25/21 14:10> Assessment and Plan: D-Dimer 3.05, VQ scan obtained see above <Eddie Proctor APN-C - Last Filed: 04/25/21 14:10> (5) CHF (congestive heart failure): Code(s): I50.9 - Heart failure, unspecified <Eddie Proctor ELECTROPLATER HELPER-C - Last Filed: 04/25/21 14:10> Status: Acute <Eddie Proctor ELECTROPLATER HELPER-C - Last Filed: 04/25/21 14:10> Assessment and Plan: Likely related to Acute on Chronic Renal Failure, will monitor I&O and lung function, will monitor BNP levels, HOB 30`, no Lasix d/t Sepsis, EKG SR, Echocardiogram for 04/27/2021 (not available on WE), BNP 4544 (corrected on 04/25/2021), will monitor BNP, Lung function, watch for fluid overload, cardiac monitoring 04/25/2021 BNP 8518, Will continue to monitor. No rales, diminished in bases, non-productive cough <JOAQUÍN Damon - Last Filed: 04/25/21 14:10> (6) Acute on chronic renal failure: Code(s): N17.9 - Acute kidney failure, unspecified; N18.9 - Chronic kidney disease, unspecified <JOAQUÍN Damon - Last Filed: 04/25/21 14:10> Status: Acute <JOAQUÍN aDmon - Last Filed: 04/25/21 14:10> Assessment and Plan: Cr 1.93, Cr:BUN 25, eCrCl 33 (unable to do CTA), fluid bolus in ER a
[2021-04-25] MEDS: LIDOCAINE HCL 2% VISC SOLN 15 ML UDC 2 ML PO (10:07)
[2021-04-25] MEDS: VENLAFAXINE HCL XR 75 MG CAP.ER.24H PO (17:10)
[2021-04-25] MEDS: PRAVASTATIN SODIUM 10 MG TABLET PO (20:40)
--- NOTE | 2021-04-25 20:55 | PC.NURSE ---
Patient's son called to inquire about father's latest test reports. Had correct password. Provided information requested.
[2021-04-25] MEDS: VERAPAMIL HCL ER 120 MG TABLET PO (22:41)
[2021-04-26] VITALS (12 sets, daily range): BP systolic 111–151; BP diastolic 66–93; PULSE 68–111; RESP 20–24; TEMP 36.5–37.3; O2SAT 90–98
[2021-04-26] MEDS: ENOXAPARIN 100 MG/ML SYRINGE 70 MG SUB-Q ×3 (00:14→23:26)
[2021-04-26] MEDS: HYDROcodone/acetaminophen (*CRX) 7.5-325 MG TABLET 1 TAB PO ×2 (03:01→12:03)
[2021-04-26 05:53] LABS: Hematocrit 28.6 % (37.0-46.0); Hemoglobin 9.4 g/dL (12.4-15.3); Mean Corpuscular HGB Conc 32.9 g/dL (32.0-36.0); Mean Corpuscular Hemoglobin 36.6 pg (27.0-31.0); Mean Corpuscular Volume 111.3 fL (78.0-102.0); Mean Platelet Volume 9.9 fl (8.7-11.0); Platelet Count Result 123 K/mm3 (150-420); Red Blood Count 2.57 M/mm3 (4.70-6.10); Red Cell Distribution Width 12.5 % (11.6-14.4); White Blood Count 19.7 K/mm3 (4.8-10.8)
[2021-04-26 06:30] LABS: Band Neutrophils Percent 0 % (0-6); Basophils Percent Manual 0 % (0-1); Eosinophils Percent Manual 0 % (1-6); Lymphocytes Absolute Manual 0.19 K/mm3 (1.1-4.5); Lymphocytes Percent Manual 1 % (18-44); Monocytes Absolute Manual 0.59 K/mm3 (0.1-0.90); Monocytes Percent Manual 3 % (3-9); Neutrophils Absolute Manual 18.91 K/mm3 (1.3-6.7); Neutrophils Percent Manual 96 % (46-73); Platelet Estimate Adequate (Adequate)
[2021-04-26] MEDS: SODIUM CHLORIDE 0.9% IV 1,000 ML 75 ML IV CONT (08:32)
[2021-04-26] MEDS: CHOLECALCIFEROL 1,000 UNITS TABLET 1000 UNITS PO (08:33)
[2021-04-26] MEDS: ASPIRIN 81 MG ENTERIC TABLET PO (08:33)
[2021-04-26] MEDS: CYANOCOBALAMIN 1,000 MCG TABLET 1000 MCG PO (08:34)
[2021-04-26] MEDS: PANTOPRAZOLE 40 MG TABLET PO (08:34)
[2021-04-26] MEDS: MONTELUKAST SODIUM 10 MG TABLET PO (08:34)
[2021-04-26] MEDS: predniSONE 5 MG TABLET PO (08:34)
[2021-04-26] MEDS: atenoloL 50 MG TABLET PO (08:34)
[2021-04-26] MEDS: CLOPIDOGREL BISULFATE 75 MG TABLET PO (08:35)
[2021-04-26] MEDS: GABAPENTIN 300 MG CAPSULE PO ×2 (08:35→12:37)
[2021-04-26 09:02] LABS: Potassium 3.9 mmol/L (3.5-5.1); Sodium 128 mmol/L (136-145)
[2021-04-26 09:03] LABS: Anion Gap 7 mmol/L (8-16); Blood Urea Nitrogen 34 mg/dL (7-18); Calcium 9.1 mg/dL (8.5-10.1); Carbon Dioxide 17 mmol/L (21-32); Chloride 104 mmol/L (98-108); Estimated CRCL calculation 44 ml/min; Estimated Glomerular Filt Rate 54; Glucose 83 mg/dL (70-99); Magnesium 2.1 mg/dL (1.8-2.4); Osmolality Calculated 272 mOsm/kg (285-295)
[2021-04-26 09:04] LABS: NT Pro B Type Natriuretic Pept 7740 pg/mL (0-125)
[2021-04-26] MEDS: SODIUM CHLORIDE 1 GM TABLET PO ×2 (14:42→17:17)
[2021-04-26] MEDS: SACCHAROMYCES BOULARDII 250 MG CAPSULE PO ×2 (14:42→17:17)
[2021-04-26] MEDS: SODIUM CHLORIDE 0.9% IV 1,000 ML 125 ML IV CONT ×2 (14:50→18:52)
--- NOTE | 2021-04-26 15:45 | PM.IMPN ---
Progress Note: A&P Assessment and Plan (1) Sepsis: Code(s): A41.9 - Sepsis, unspecified organism <JOAQUÍN Damon - Last Filed: 04/26/21 16:06> Status: Acute <Eddie PorfirioJOAQUÍN Malloy - Last Filed: 04/26/21 16:06> Assessment and Plan: Pneumonia, LA 3, Temp 101.8, Tachypnea, Acute on CRF, Metabolic Acidosis (pH 7.35, pCo2 25, HCO3 13.5), increased oxygen demand (Negative for COVID, Flu A/B), WBC 15.5, 2 L NS given in ER followed by 1 L on the floor, now NS at 75ml/h to avoid fluid overload (BNP 4544), Rocephin and Azithromycin, phototypesetting equipment monitor, 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 Jayla Rasmussen DC'ed Zosyn 2.25 Q6H restarted and continue with Azithromycin, Blood Cx Gram Negative Bacilli Aerobic bottle only. 04/26/2021 Continue with Zosyn, Azithromycin was stopped previously, WBC 19.7, Plt 123, Na 128, CO2 17, Cr, 1.3, BNP v7746, LA 0.9. <JOAQUÍN Damon - Last Filed: 04/26/21 16:06> (2) Pneumonia: Code(s): J18.9 - Pneumonia, unspecified organism <JOAQUÍN Damon - Last Filed: 04/26/21 16:06> Status: Acute <JOAQUÍN Damon - Last Filed: 04/26/21 16:06> Assessment and Plan: Abd/Pel CT report includes: Aspiration pneumonitis/pneumonia RLL, Cardiomegaly, NC 4L wean, VS Q4H, monitor SpO2, Blood Cx pending 04/25/2021 Ab as noted above, Zosyn and Azithromycin, increased L/min to 5-6 d/t pO2 of 62.4, Gram Neg Bacilli Aerobic bottle only 04/26/2021 Azithromycin was stopped only Zosyn at this time, Weaning supplemental O2, down to 4L/min with SpO2 of 96%, Blood Cx Pseudomonas aeruginosa X 4 bottles, added Florastor <Eddie McleanJOHN yip-C - Last Filed: 04/26/21 16:06> (3) Pulmonary embolus: Qualifiers: Acute cor pulmonale presence: unspecified Chronicity: acute Pulmonary embolism type: other Qualified Code(s): I26.99 - Other pulmonary embolism without acute cor pulmonale <Eddie MonroyGail Proctor APN-C - Last Filed: 04/26/21 16:06> Code(s): I26.99 - Other pulmonary embolism without acute cor pulmonale <Eddie MonroyGail Proctor APN-C - Last Filed: 04/26/21 16:06> Status: Acute <Eddie MonroyGail Proctor APN-C - Last Filed: 04/26/21 16:06> Assessment and Plan: VQ scan reading as High probability for pulmonary embolism, multiple Bilateral, Therapeutic Lovenox, Supplemental O2 04/25/2021 Continue Therapeutic Lovenox, will transition to a PO anticoagulant covered by his insurance. 04/26/2021 Pt is breathing well, he did need an increase in O2 now weaning down again. Continue with Lovenox <Eddie MonroyGail Proctor APN-C - Last Filed: 04/26/21 16:06> (4) Elevated d-dimer: Code(s): R79.89 - Other specified abnormal findings of blood chemistry <Eddie MonroyGail Proctor APN-C - Last Filed: 04/26/21 16:06> Status: Acute <Eddie MonroyGail Proctor APN-C - Last Filed: 04/26/21 16:06> Assessment and Plan: D-Dimer 3.05, VQ scan obtained see above <Eddie MonroyGail Proctor APN-C - Last Filed: 04/26/21 16:06> (5) CHF (congestive heart failure): Code(s): I50.9 - Heart failure, unspecified <Eddie PorfirioGail Proctor APN-C - Last Filed: 04/26/21 16:06> Status: Acute <Eddie Proctor, RESEARCH PROFESSOR-C - Last Filed: 04/26/21 16:06> Assessment and Plan: Likely related to Acute on Chronic Renal Failure, will monitor I&O and lung function, will monitor BNP levels, HOB 30`, no Lasix d/t Sepsis, EKG SR, Echocardiogram for 04/27/2021 (not available on WE), BNP 4544 (corrected on 04/25/2021), will monitor BNP, Lung function, watch for fluid overload, cardiac monitoring 04/25/2021 BNP 8518, Will continue to monitor. No rales, diminished in bases, non-productive cough 04/26/2021 BNP 7746, Lungs
[2021-04-26] MEDS: VENLAFAXINE HCL XR 75 MG CAP.ER.24H PO (17:17)
[2021-04-26] MEDS: ALBUTEROL SULFATE (*SP) INHALER 2 PUFF INHALATION (17:21)
[2021-04-26] MEDS: PRAVASTATIN SODIUM 10 MG TABLET PO (21:05)
[2021-04-26] MEDS: VERAPAMIL HCL ER 120 MG TABLET PO (21:05)
[2021-04-26] MEDS: HYDROcodone/acetaminophen (*CRX) 10-325 MG TABLET 1 TAB PO (23:11)
[2021-04-27] VITALS (14 sets, daily range): BP systolic 141–175; BP diastolic 70–96; PULSE 62–92; RESP 12–24; TEMP 36.7–37.1; O2SAT 4–97
[2021-04-27] MEDS: SODIUM CHLORIDE 0.9% IV 1,000 ML 125 ML IV CONT (04:48)
[2021-04-27] MEDS: predniSONE 5 MG TABLET PO (07:44)
[2021-04-27] MEDS: ALBUTEROL SULFATE (*SP) INHALER 2 PUFF INHALATION (07:47)
[2021-04-27] MEDS: IPRATROPIUM 0.5 MG/ALBUTEROL SULFATE 2.5 MG AMPUL.NEB 3 ML INHALATION ×3 (07:53→23:02)
[2021-04-27] MEDS: methylPREDNISolone SOD SUCC 125 MG VIAL IV PUSH (08:13)
[2021-04-27 08:28] LABS: Base Excess ABG -9.9 mmol/L (0-2); HCO3 ABG 13.6 mmol/L (23-29); Oxygen Content ABG 15.2 %vol (16.0-22.0); Oxygen Saturation ABG 98.9 % (95-97); PCO2 ABG 23.7 mmHg (35-45); PO2 ABG 163.4 mmHg (75-85); pH ABG 7.38 (7.35-7.45)
[2021-04-27 08:30] LABS: Device NASAL CANNULA; Modified Allen's Test Pass; Site Drawn RIGHT RADIAL
[2021-04-27 08:30] LABS: Hematocrit 30.1 % (37.0-46.0); Hemoglobin 9.9 g/dL (12.4-15.3); Mean Corpuscular HGB Conc 32.9 g/dL (32.0-36.0); Mean Corpuscular Hemoglobin 36.3 pg (27.0-31.0); Mean Corpuscular Volume 110.3 fL (78.0-102.0); Mean Platelet Volume 9.9 fl (8.7-11.0); Platelet Count Result 134 K/mm3 (150-420); Red Blood Count 2.73 M/mm3 (4.70-6.10); Red Cell Distribution Width 13.1 % (11.6-14.4); White Blood Count 11.9 K/mm3 (4.8-10.8)
[2021-04-27] MEDS: HYDROcodone/acetaminophen (*CRX) 10-325 MG TABLET 1 TAB PO ×3 (08:44→20:48)
--- NOTE | 2021-04-27 09:00 | ECHO_ITS ---
Patient Info Name: Isaac Riddle Age: 75 years : 1945 Gender: Male Ht: 71 in Wt: 151 lbs BSA: 1.85 m2 HR: 68 bpm BP: 164 / 81 mmHg Exam Date: 04/28/2021 1:55 PM Exam Location: [facility] Patient Status: Inpatient Admit Date: 04/23/2021 Staff Ordering Physician: Eddie Proctor [employer] Instructor: Hipolito Jean RDCS, RT Attending Provider: Benny Dickerson MD Referring Physician: Esthela BRADLEY; Exam Type: CA echo doppler color flow Study Info Indications I50.9 - Heart failure, unspecified Complete two-dimensional, color flow and Doppler transthoracic echocardiogram is performed. Strain analysis performed. Summary 1. Complete two-dimensional, color flow and Doppler transthoracic echocardiogram is performed. 2. Left ventricular chamber dimension is normal. 3. Left ventricular systolic function is normal, estimated at 60-65%. 4. There is mildly increased left ventricular wall thickness. 5. The left ventricular diastolic function is grade I diastolic dysfunction. 6. E/e' 8 is minimally elevated. 7. Global longitudinal strain is normal at -19.6%. 8. Left atrial chamber dimension is mildly enlarged. 9. Right atrial chamber dimension is severely enlarged. 10. There is mild aortic valve sclerosis. 11. There is moderate mitral valve regurgitation. 12. There is mild tricuspid valve regurgitation. 13. Moderate pulmonary hypertension, estimated pulmonary arterial systolic pressure is 54 mmHg. 14. Dilated inferior vena cava with >50% collapse upon inspiration consistent with elevated right atrial pressure, 10 mmHg. Left Ventricle E/e' 8 is minimally elevated. Global longitudinal strain is normal at -19.6%. Left ventricular chamber dimension is normal. Left ventricular systolic function is normal, estimated at 60-65%. There is mildly increased left ventricular wall thickness. The left ventricular diastolic function is grade I diastolic dysfunction. Right Ventricle Right ventricular systolic function is normal at 3.1 cm. Right ventricular chamber dimension is normal. Left Atria Left atrial chamber dimension is mildly enlarged. Right Atria Right atrial chamber dimension is severely enlarged. Aortic Valve The aortic valve is trileaflet. There is mild aortic valve sclerosis. There is no aortic valve stenosis. There is no aortic valve regurgitation. Pulmonic Valve There is no pulmonic regurgitation. Mitral Valve There is no mitral valve stenosis. There is moderate mitral valve regurgitation. Tricuspid Valve There is mild tricuspid valve regurgitation. Moderate pulmonary hypertension, estimated pulmonary arterial systolic pressure is 54 mmHg. Pericardium/Pleural There is no pericardial effusion. Inferior Vena Cava Dilated inferior vena cava with >50% collapse upon inspiration consistent with elevated right atrial pressure, 10 mmHg. Aorta The aortic root size at the sinus of Valsalva is normal. Left Ventricular Outflow Tract Name Value Normal LVOT 2D LVOT Diameter 2.2 cm LVOT Doppler LVOT Peak Velocity 84 cm/s LVOT Peak Gradient 3 mmHg
[2021-04-27] MEDS: SACCHAROMYCES BOULARDII 250 MG CAPSULE PO ×3 (09:33→16:45)
[2021-04-27] MEDS: SODIUM CHLORIDE 1 GM TABLET PO ×2 (09:33→16:45)
[2021-04-27] MEDS: MONTELUKAST SODIUM 10 MG TABLET PO (09:33)
[2021-04-27] MEDS: CHOLECALCIFEROL 1,000 UNITS TABLET 1000 UNITS PO (09:34)
[2021-04-27] MEDS: atenoloL 50 MG TABLET PO (09:35)
[2021-04-27] MEDS: CLOPIDOGREL BISULFATE 75 MG TABLET PO (09:35)
[2021-04-27] MEDS: CYANOCOBALAMIN 1,000 MCG TABLET 1000 MCG PO (09:36)
[2021-04-27] MEDS: ASPIRIN 81 MG ENTERIC TABLET PO (09:36)
[2021-04-27 09:44] LABS: Troponin I < 4.000 ng/mL (0.000-0.034)
[2021-04-27 09:46] LABS: NT Pro B Type Natriuretic Pept 12600 pg/mL (0-125)
--- NOTE | 2021-04-27 09:55 | ECG_ITS ---
Measurements Intervals [place] Rate: 77 P: 66 NV: 151 QRS: 74 QRSD: 110 T: 34 QT: 385 QTc: 438 Interpretive Statements SINUS RHYTHM INTRAVENTRICULAR CONDUCTION DELAY BORDERLINE R WAVE PROGRESSION, ANTERIOR LEADS MINIMAL Q WAVES- INFERIOR LEADS BORDERLINE ST-T WAVE ABNORMALITY- INFERIOR LEADS BASELINE ARTIFACT- I, II, III, AVL, AVF BORDERLINE ECG Electronically Signed On 04-27-2021 10:45:48 CDT by Suman Ortiz D.O.
--- NOTE | 2021-04-27 09:59 | PC.NURSE ---
IVF's discontinued at this time
[2021-04-27] MEDS: FUROSEMIDE INJ 40 MG/4 ML VIAL IV PUSH (10:07)
[2021-04-27] MEDS: PANTOPRAZOLE 40 MG TABLET PO (10:07)
--- NOTE | 2021-04-27 10:44 | PC.NURSE ---
Contact made to [facility] per Jack Proctor NP for possible transfer
[2021-04-27 10:55] LABS: Anion Gap 9 mmol/L (8-16); Blood Urea Nitrogen 29 mg/dL (9-20); Calcium 9.1 mg/dL (8.4-10.2); Carbon Dioxide 14 mmol/L (22-30); Chloride 106 mmol/L (98-107); Estimated CRCL calculation 48 ml/min; Estimated Glomerular Filt Rate 59; Glucose 88 mg/dL (65-110); Osmolality Calculated 272 mOsm/kg (285-295); Potassium 3.8 mmol/L (3.4-5.0)
[2021-04-27 10:56] LABS: Sodium 129 mmol/L (137-145)
[2021-04-27] MEDS: ENOXAPARIN 100 MG/ML SYRINGE 70 MG SUB-Q (12:30)
[2021-04-27] MEDS: VENLAFAXINE HCL XR 75 MG CAP.ER.24H PO (16:45)
--- NOTE | 2021-04-27 17:56 | PM.TDS ---
Transfer Discharge Sum: Prov Provider Date of admission: 04/23/21 22:36 Primary care physician: Franco Carvalho MD Admitting clinician: Benny Dickerson MD DS: Admitting Diagnosis Admitting Diagnosis Sepsis, pneumonia, acute on chronic renal failure, hypomagnesemia, hyperkalemia, CHF DS: Discharge Diagnosis Discharge Diagnosis (1) Sepsis: Code(s): A41.9 - Sepsis, unspecified organism Status: Acute Assessment and Plan: Pneumonia, LA 3, Temp 101.8, Tachypnea, Acute on CRF, Metabolic Acidosis (pH 7.35, pCo2 25, HCO3 13.5), increased oxygen demand (Negative for COVID, Flu A/B), WBC 15.5, 2 L NS given in ER followed by 1 L on the floor, now NS at 75ml/h to avoid fluid overload (BNP 4544), Rocephin and Azithromycin, gas maker helper, 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 Jayla Rasmussen DC'ed Zosyn 2.25 Q6H restarted and continue with Azithromycin, Blood Cx Gram Negative Bacilli Aerobic bottle only. 04/26/2021 Continue with Zosyn, Azithromycin was stopped previously, WBC 19.7, Plt 123, Na 128, CO2 17, Cr, 1.3, BNP v7746, LA 0.9. 04/27/2021 Patient growing Pseudomonas in all blood culture bottles, currently on Zosyn and Gentamicin, WBC 11.9 (2) Pneumonia: Code(s): J18.9 - Pneumonia, unspecified organism Status: Acute Assessment and Plan: Abd/Pel CT report includes: Aspiration pneumonitis/pneumonia RLL, Cardiomegaly, NC 4L wean, VS Q4H, monitor SpO2, Blood Cx pending 04/25/2021 Ab as noted above, Zosyn and Azithromycin, increased L/min to 5-6 d/t pO2 of 62.4, Gram Neg Bacilli Aerobic bottle only 04/26/2021 Azithromycin was stopped only Zosyn at this time, Weaning supplemental O2, down to 4L/min with SpO2 of 96%, Blood Cx Pseudomonas aeruginosa X 4 bottles, added Florastor 04/27/2021 patient had increased difficulty with breathing as of last night 2200 hours, this may have possibly been a COPD issue, He was given DuoNeb, 125mg Solu-Medrol, his course rhonchi cleared up thereafter. Breathing improved, (3) Pulmonary embolus: Qualifiers: Acute cor pulmonale presence: unspecified Chronicity: acute Pulmonary embolism type: other Qualified Code(s): I26.99 - Other pulmonary embolism without acute cor pulmonale Code(s): I26.99 - Other pulmonary embolism without acute cor pulmonale Status: Acute Assessment and Plan: VQ scan reading as High probability for pulmonary embolism, multiple Bilateral, Therapeutic Lovenox, Supplemental O2 04/25/2021 Continue Therapeutic Lovenox, will transition to a PO anticoagulant covered by his insurance. 04/26/2021 Pt is breathing well, he did need an increase in O2 now weaning down again. Continue with Lovenox (4) Elevated d-dimer: Code(s): R79.89 - Other specified abnormal findings of blood chemistry Status: Acute Assessment and Plan: D-Dimer 3.05, VQ scan obtained see above (5) CHF (congestive heart failure): Code(s): I50.9 - Heart failure, unspecified Status: Acute Assessment and Plan: Likely related to Acute on Chronic Renal Failure, will monitor I&O and lung function, will monitor BNP levels, HOB 30`, no Lasix d/t Sepsis, EKG SR, Echocardiogram for 04/27/2021 (not available on WE), BNP 4544 (corrected on 04/25/2021), will monitor BNP, Lung function, watch for fluid overload, cardiac monitoring 04/25/2021 BNP 8518, Will continue to monitor. No rales, diminished in bases, non-productive cough 04/26/2021 BNP 7746, Lungs clear (6) Acute on chronic renal failure: Code(s): N17.9 - Acute kidney failure, unspecified; N18.9 - Chronic kidney disease, unspecified Status: Acute Assessment and Plan: Cr 1.93, Cr:BUN 25, eCrCl 33 (unable to do CTA), fluid bolus in ER as not
--- NOTE | 2021-04-27 18:26 | PM.IMPN ---
Progress Note: A&P Assessment and Plan (1) Sepsis: Code(s): A41.9 - Sepsis, unspecified organism Status: Acute Assessment and Plan: Pneumonia, LA 3, Temp 101.8, Tachypnea, Acute on CRF, Metabolic Acidosis (pH 7.35, pCo2 25, HCO3 13.5), increased oxygen demand (Negative for COVID, Flu A/B), WBC 15.5, 2 L NS given in ER followed by 1 L on the floor, now NS at 75ml/h to avoid fluid overload (BNP 4544), Rocephin and Azithromycin, environmental monitoring technician, 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 Jayla Rasmussen DC'ed Zosyn 2.25 Q6H restarted and continue with Azithromycin, Blood Cx Gram Negative Bacilli Aerobic bottle only. 04/26/2021 Continue with Zosyn, Azithromycin was stopped previously, WBC 19.7, Plt 123, Na 128, CO2 17, Cr, 1.3, BNP v7746, LA 0.9. 04/27/2021 Patient growing Pseudomonas in all blood culture bottles, currently on Zosyn and Gentamicin, WBC 11.9 (2) Pneumonia: Code(s): J18.9 - Pneumonia, unspecified organism Status: Acute Assessment and Plan: Abd/Pel CT report includes: Aspiration pneumonitis/pneumonia RLL, Cardiomegaly, NC 4L wean, VS Q4H, monitor SpO2, Blood Cx pending 04/25/2021 Ab as noted above, Zosyn and Azithromycin, increased L/min to 5-6 d/t pO2 of 62.4, Gram Neg Bacilli Aerobic bottle only 04/26/2021 Azithromycin was stopped only Zosyn at this time, Weaning supplemental O2, down to 4L/min with SpO2 of 96%, Blood Cx Pseudomonas aeruginosa X 4 bottles, added Florastor 04/27/2021 patient had increased difficulty with breathing as of last night 2200 hours, this may have possibly been a COPD issue, He was given DuoNeb, 125mg Solu-Medrol, his course rhonchi cleared up thereafter. Breathing improved, x ray today indicated stable lung opacities (3) Pulmonary embolus: Qualifiers: Acute cor pulmonale presence: unspecified Chronicity: acute Pulmonary embolism type: other Qualified Code(s): I26.99 - Other pulmonary embolism without acute cor pulmonale Code(s): I26.99 - Other pulmonary embolism without acute cor pulmonale Status: Acute Assessment and Plan: VQ scan reading as High probability for pulmonary embolism, multiple Bilateral, Therapeutic Lovenox, Supplemental O2 04/25/2021 Continue Therapeutic Lovenox, will transition to a PO anticoagulant covered by his insurance. 04/26/2021 Pt is breathing well, he did need an increase in O2 now weaning down again. Continue with Lovenox 04/27/2021 As noted above Pt has difficulty breathing which resolved with DuoNeb and Steroids, continue with Therapeutic Lovenox (4) Elevated d-dimer: Code(s): R79.89 - Other specified abnormal findings of blood chemistry Status: Acute Assessment and Plan: D-Dimer 3.05, VQ scan obtained see above (5) CHF (congestive heart failure): Code(s): I50.9 - Heart failure, unspecified Status: Acute Assessment and Plan: Likely related to Acute on Chronic Renal Failure, will monitor I&O and lung function, will monitor BNP levels, HOB 30`, no Lasix d/t Sepsis, EKG SR, Echocardiogram for 04/27/2021 (not available on WE), BNP 4544 (corrected on 04/25/2021), will monitor BNP, Lung function, watch for fluid overload, cardiac monitoring 04/25/2021 BNP 8518, Will continue to monitor. No rales, diminished in bases, non-productive cough 04/26/2021 BNP 7746, Lungs clear 04/27/[place] [address] likely related to his Shortness of Breath during the night (6) Acute on chronic renal failure: Code(s): N17.9 - Acute kidney failure, unspecified; N18.9 - Chronic kidney disease, unspecified Status: Acute Assessment and Plan: Cr 1.93, Cr:BUN 25, eCrCl 33 (unable to do CTA), fluid bolus in ER as noted above now 75ml/h NS, taking PO fluids
[2021-04-27 20:14] LABS: Troponin I 251.3 ng/L (0.00-60.4)
--- NOTE | 2021-04-27 20:19 | PC.NURSE ---
Jenny Proctor, [employer]/Hospitalist, notified of Troponin level at 251.3.
[2021-04-27] MEDS: VERAPAMIL HCL ER 120 MG TABLET PO (20:49)
[2021-04-27] MEDS: PRAVASTATIN SODIUM 10 MG TABLET PO (20:49)
[2021-04-27 23:44] LABS: Gentamicin Random 3.8 ug/mL (5.0-12.0)
[2021-04-28] VITALS (17 sets, daily range): BP systolic 148–168; BP diastolic 68–81; PULSE 61–78; RESP 18–20; TEMP 36.1–36.4; O2SAT 92–97
[2021-04-28] MEDS: ENOXAPARIN 100 MG/ML SYRINGE 70 MG SUB-Q ×2 (00:11→12:00)
--- NOTE | 2021-04-28 01:28 | PC.NURSE ---
[facility] called and said they still didnt have a bed available at this time. They said they would contact the research greenhouse supervisor in the morning to continue to find an available bed.
[2021-04-28] MEDS: IPRATROPIUM 0.5 MG/ALBUTEROL SULFATE 2.5 MG AMPUL.NEB 3 ML INHALATION ×3 (05:27→18:27)
[2021-04-28 05:49] LABS: Basophils Absolute Auto 0.01 K/mm3 (0.00-0.10); Basophils Percent Auto 0.1 % (0.0-1.0); Hematocrit 29.1 % (37.0-46.0); Hemoglobin 9.5 g/dL (12.4-15.3); Immature Granulocyte Percent A 0.9 % (0.0-0.0); Lymphocytes Absolute Auto 0.46 K/mm3 (1.10-4.50); Lymphocytes Percent Auto 4.4 % (18.0-42.0); Mean Corpuscular HGB Conc 32.6 g/dL (32.0-36.0); Mean Corpuscular Hemoglobin 35.4 pg (27.0-31.0); Mean Corpuscular Volume 108.6 fL (78.0-102.0); Mean Platelet Volume 9.9 fl (8.7-11.0); Monocytes Absolute Auto 0.93 K/mm3 (0.10-0.90); Monocytes Percent Auto 8.8 % (2.0-11.0); Neutrophils Percent Auto 85.8 % (50.0-70.0); Platelet Count Result 158 K/mm3 (150-420); Red Blood Count 2.68 M/mm3 (4.70-6.10); Red Cell Distribution Width 12.4 % (11.6-14.4); White Blood Count 10.5 K/mm3 (4.8-10.8)
[2021-04-28 06:15] LABS: Alanine Aminotransferase 28 U/L (16-63); Albumin Level 1.9 g/dL (3.4-5.0); Alkaline Phosphatase 53 U/L (46-116); Anion Gap 15 mmol/L (8-16); Aspartate Amino Transferase 29 U/L (15-37); Bilirubin,Total 0.4 mg/dL (0.00-1.00); Blood Urea Nitrogen 34 mg/dL (7-18); Calcium 9.1 mg/dL (8.5-10.1); Carbon Dioxide 19 mmol/L (21-32); Chloride 104 mmol/L (98-108); Estimated CRCL calculation 38 ml/min; Estimated Glomerular Filt Rate 46; Glucose 145 mg/dL (70-99); Magnesium 1.4 mg/dL (1.8-2.4); Osmolality Calculated 296 mOsm/kg (285-295); Potassium 3.7 mmol/L (3.5-5.1); Sodium 138 mmol/L (136-145); Total Protein 6.1 g/dL (6.4-8.2)
[2021-04-28 06:24] LABS: Troponin I 227.9 ng/L (0.00-60.4)
--- NOTE | 2021-04-28 06:29 | PC.NURSE ---
Lab called a critical troponin value of 227.[address] Garcia notified and no new orders at this time.
[2021-04-28] MEDS: predniSONE 5 MG TABLET PO (08:17)
[2021-04-28] MEDS: HYDROcodone/acetaminophen (*CRX) 10-325 MG TABLET 1 TAB PO ×2 (08:21→18:17)
[2021-04-28] MEDS: SACCHAROMYCES BOULARDII 250 MG CAPSULE PO ×2 (08:45→17:19)
[2021-04-28] MEDS: CHOLECALCIFEROL 1,000 UNITS TABLET 1000 UNITS PO (08:46)
[2021-04-28] MEDS: PANTOPRAZOLE 40 MG TABLET PO (08:47)
[2021-04-28] MEDS: SODIUM CHLORIDE 1 GM TABLET PO ×2 (08:47→18:17)
[2021-04-28] MEDS: MONTELUKAST SODIUM 10 MG TABLET PO (08:47)
[2021-04-28] MEDS: ASPIRIN 81 MG ENTERIC TABLET PO (08:47)
[2021-04-28] MEDS: atenoloL 50 MG TABLET PO (08:48)
[2021-04-28] MEDS: CLOPIDOGREL BISULFATE 75 MG TABLET PO (08:48)
[2021-04-28] MEDS: CYANOCOBALAMIN 1,000 MCG TABLET 1000 MCG PO (08:49)
[2021-04-28] MEDS: GABAPENTIN 300 MG CAPSULE PO (08:52)
[2021-04-28] MEDS: ALBUTEROL SULFATE (*SP) INHALER 2 PUFF INHALATION ×2 (08:54→22:10)
[2021-04-28] MEDS: POTASSIUM CHLORIDE 20 MEQ TABLET 40 MEQ PO (11:18)
[2021-04-28] MEDS: MAGNESIUM SULF 4 GM/WATER100ML 4 GM/100 ML BAG IVPB (11:18)
--- NOTE | 2021-04-28 14:46 | WPDPN ---
Subjective Date/time seen: 04/28/21 14:46 patient has no complaints at this time, no labored breathing or chest pain displayed and denied. Awaiting bed at [facility]. Patient did call today to verify the patient still needs placed. He has been accepted but no beds are available. The patient denies SOB, CP, palpitation, extremity numbness, lightheadedness, dizziness, constipation, diarrhea, chills, or fever. <WEI Lyles - Last Filed: 04/28/21 14:49> Review of Systems Review of Systems: A 14 organ system Review of Systems was performed and pertinent positives included in the HPI, otherwise remaining ROS is negative. <WEI Lyles - Last Filed: 04/28/21 14:49> Exam Narrative: GENERAL: This is a well-nourished, well-developed patient, in no apparent distress. HEAD: normocephalic, atraumatic. EYES: PERRL. Sclera clear/white. Vision is grossly intact. EARS: External ears normal, auditory canals clear and without drainage, TMs normal without perforation. Hearing grossly intact. NOSE: External nose normal with no obvious nasal discharge, nares without redness, no rhinorrhea. THROAT: Mucous membranes moist, posterior pharynx clear. NECK: Neck supple, non-tender without lymphadenopathy, masses or thyromegaly. CARDIOVASCULAR: Regular rate and rhythm without murmurs, gallops, or rubs. RESPIRATORY: Diminished breath sounds GASTROINTESTINAL: Abdomen soft, non-tender, nondistended. Bowel sounds are active. No hepato-splenomegaly, or palpable masses. No guarding. SKIN: warm, intact with no suspicious lesions or rash, good texture and turgor. NEURO: awake, alert, and oriented to person, place and time. There were no obvious focal neurologic abnormalities. Steady gait EXTREMITIES: Normal range of motion. No edema. No calf tenderness. Negative Homans sign bilaterally. BACK: Nontender without deformity or crepitance. No flank tenderness. <WEI Lyles - Last Filed: 04/28/21 14:49> Objective Data Vital Signs Vital Signs: Vital Signs - 24 hr 04/27/21 16:00 04/27/21 16:59 04/27/21 17:07 Temperature 98.8 F Pulse Rate 69 63 62 Respiratory Rate 16 12 16 Blood Pressure 148/81 H Pulse Oximetry 92 92 04/27/21 20:00 04/27/21 23:03 04/27/21 23:12 Temperature 98.1 F Pulse Rate 75 66 80 Respiratory Rate 20 16 12 Blood Pressure 147/74 H Pulse Oximetry 92 04/28/21 00:00 04/28/21 04:18 04/28/21 04:19 Temperature 96.9 F L 97.5 F L Pulse Rate 71 64 70 Respiratory Rate 20 20 Blood Pressure 159/75 H 168/75 H Pulse Oximetry 93 94 04/28/21 05:28 04/28/21 05:41 04/28/21 07:56 Temperature 97.6 F Pulse Rate 78 71 Respiratory Rate 20 20 18 Blood Pressure 164/81 H Pulse Oximetry 92 94 94 04/28/21 07:57 04/28/21 08:00 04/28/21 08:48 Temperature Pulse Rate 70 71 72 Respiratory Rate 20 Blood Pressure Pulse Oximetry 94 04/28/21 12:56 04/28/21 13:04 Temperature Pulse Rate 62 64 Respiratory Rate 20 20 Blood Pressure Pulse Oximetry 92 95 <WEI Lyles - Last Filed: 04/28/21 14:49> Intake/Output Intake/Output: Intake & Output 04/25/21 04/26/21 04/27/21 04/28/21 23:59 23:59 23:59 23:59 Intake Total 2325 3840.833 3291.667 550 Output Total 1350 1125 700 500 Balance 975 2715.833 2591.667 50 <WEI Lyles - Last Filed: 04/28/21 14:49> Meds/Results Medications: Active Medications Generic Name Dose Route Start Last Admin Trade Name Freq PRN Reason Stop Dose Admin Acetaminophen 650 mg 04/24/21 01:27 04/24/21 21:35 Acetaminophen 325 Mg Tablet PO 650 mg Q4H PRN Administration Headache Hydrocodone Bitart/Acetaminophen 1 tab 04/26/21 14:10 04/28/21 08:21 Hydrocodone/Acetaminophen (*Crx) 10-325 Mg Tablet PO 1 tab Q6H PRN Administration Pain Rated 7-10 Albuterol 2 puff 04/23/21 22:39 04/28/21 08:54 Albuterol Sulfate (*Sp) Inhaler INHALATION 2 puff QID PRN Administration
--- NOTE | 2021-04-28 14:51 | WPDPN ---
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 Jayla Rasmussen DC'ed Zosyn 2.25 Q6H restarted and continue with Azithromycin, Blood Cx Gram Negative Bacilli Aerobic bottle only. 04/26/2021 Continue with Zosyn, Azithromycin was stopped previously, WBC 19.7, Plt 123, Na 128, CO2 17, Cr, 1.3, BNP v7746, LA 0.9. 04/27/2021 Patient growing Pseudomonas in all blood culture bottles, currently on Zosyn and Gentamicin, WBC 11.9 Resolved Waiting on bed placement at [facility] WBCs within normal limits and patient afebrile <WEI Lyles - Last Filed: 04/28/21 14:58> (2) Pneumonia: Code(s): J18.9 - Pneumonia, unspecified organism <WEI Lyles - Last Filed: 04/28/21 14:58> Status: Acute <WEI Lyles - Last Filed: 04/28/21 14:58> Assessment and Plan: Abd/Pel CT report includes: Aspiration pneumonitis/pneumonia RLL, Cardiomegaly, NC 4L wean, VS Q4H, monitor SpO2, Blood Cx pending 04/25/2021 Ab as noted above, Zosyn and Azithromycin, increased L/min to 5-6 d/t pO2 of 62.4, Gram Neg Bacilli Aerobic bottle only 04/26/2021 Azithromycin was stopped only Zosyn at this time, Weaning supplemental O2, down to 4L/min with SpO2 of 96%, Blood Cx Pseudomonas aeruginosa X 4 bottles, added Florastor 04/27/2021 patient had increased difficulty with breathing as of last night 2200 hours, this may have possibly been a COPD issue, He was given DuoNeb, 125mg Solu-Medrol, his course rhonchi cleared up thereafter. Breathing improved, x ray today indicated stable lung opacities Waiting on bed placement at [facility] <WEI Lyles - Last Filed: 04/28/21 14:58> (3) Pulmonary embolus: Qualifiers: Acute cor pulmonale presence: unspecified Chronicity: acute Pulmonary embolism type: other Qualified Code(s): I26.99 - Other pulmonary embolism without acute cor pulmonale <WEI Lyles - Last Filed: 04/28/21 14:58> Code(s): I26.99 - Other pulmonary embolism without acute cor pulmonale <WEI Lyles - Last Filed: 04/28/21 14:58> Status: Acute <WEI Lyles - Last Filed: 04/28/21 14:58> Assessment and Plan: VQ scan reading as High probability for pulmonary embolism, multiple Bilateral, Therapeutic Lovenox, Supplemental O2 04/25/2021 Continue Therapeutic Lovenox, will transition to a PO anticoagulant covered by his insurance. 04/26/2021 Pt is breathing well, he did need an increase in O2 now weaning down again. Continue with Lovenox 04/27/2021 As noted above Pt has difficulty breathing which resolved with DuoNeb and Steroids, continue with Therapeutic Lovenox Waiting on bed placement at [facility] Continue Lovenox <WEI Lyles - Last Filed: 04/28/21 14:58> (4) Elevated d-dimer: Code(s): R79.89 - Other specified abnormal findings of blood chemistry <WEI Lyles - Last Filed: 04/28/21 14:58> Status: Acute <WEI Lyles - Last Filed: 04/28/21 14:58> Assessment and Plan: D-Dimer 3.05, VQ scan obtained see above Continue Lovenox <LOGAN Lyles
[2021-04-28] MEDS: VENLAFAXINE HCL XR 75 MG CAP.ER.24H PO (18:16)
[2021-04-28] MEDS: PRAVASTATIN SODIUM 10 MG TABLET PO (21:00)
[2021-04-28] MEDS: VERAPAMIL HCL ER 120 MG TABLET PO (21:01)
[2021-04-29] VITALS (11 sets, daily range): BP systolic 135–160; BP diastolic 63–81; PULSE 61–85; RESP 16–20; TEMP 36.4–37; O2SAT 92–98
[2021-04-29] MEDS: HYDROcodone/acetaminophen (*CRX) 10-325 MG TABLET 1 TAB PO ×3 (00:39→18:33)
[2021-04-29] MEDS: IPRATROPIUM 0.5 MG/ALBUTEROL SULFATE 2.5 MG AMPUL.NEB 3 ML INHALATION ×4 (00:40→18:40)
--- NOTE | 2021-04-29 02:32 | PC.NURSE ---
Pulse ox prior to 0030 breathing treatment 93%. Pulse ox after breathing treatment 98%.
[2021-04-29 05:29] LABS: Hematocrit 27.9 % (37.0-46.0); Hemoglobin 9.1 g/dL (12.4-15.3); Mean Corpuscular HGB Conc 32.6 g/dL (32.0-36.0); Mean Corpuscular Hemoglobin 35.8 pg (27.0-31.0); Mean Corpuscular Volume 109.8 fL (78.0-102.0); Mean Platelet Volume 10.3 fl (8.7-11.0); Platelet Count Result 198 K/mm3 (150-420); Red Blood Count 2.54 M/mm3 (4.70-6.10); Red Cell Distribution Width 12.6 % (11.6-14.4); White Blood Count 11.3 K/mm3 (4.8-10.8)
[2021-04-29 05:50] LABS: Alanine Aminotransferase 31 U/L (16-63); Albumin Level 1.9 g/dL (3.4-5.0); Alkaline Phosphatase 49 U/L (46-116); Anion Gap 12 mmol/L (8-16); Aspartate Amino Transferase 27 U/L (15-37); Bilirubin,Total 0.4 mg/dL (0.00-1.00); Blood Urea Nitrogen 34 mg/dL (7-18); Calcium 9.4 mg/dL (8.5-10.1); Carbon Dioxide 21 mmol/L (21-32); Chloride 106 mmol/L (98-108); Estimated CRCL calculation 45 ml/min; Estimated Glomerular Filt Rate 56; Glucose 112 mg/dL (70-99); Osmolality Calculated 296 mOsm/kg (285-295); Potassium 3.9 mmol/L (3.5-5.1); Sodium 139 mmol/L (136-145); Total Protein 5.7 g/dL (6.4-8.2)
[2021-04-29 05:54] LABS: Troponin I 123.9 ng/L (0.00-60.4)
--- NOTE | 2021-04-29 06:01 | PC.NURSE ---
Lab called with critical troponin value of 123.9. Dr. Caldera notified of the critical troponin value and no new orders at this time.
[2021-04-29] MEDS: predniSONE 5 MG TABLET PO (08:08)
[2021-04-29] MEDS: POTASSIUM CHLORIDE 20 MEQ TABLET 40 MEQ PO (08:08)
[2021-04-29 09:49] LABS: Magnesium 1.8 mg/dL (1.8-2.4)
[2021-04-29 10:14] LABS: NT Pro B Type Natriuretic Pept 13145 pg/mL (0-125)
--- NOTE | 2021-04-29 10:21 | PHAR ---
04/27/21: VERIFIED PT.'S HOME MED STIOLTO RESPIMAT. TLS
[2021-04-29] MEDS: ALBUTEROL SULFATE (*SP) INHALER 2 PUFF INHALATION (10:56)
[2021-04-29] MEDS: ENOXAPARIN 100 MG/ML SYRINGE 70 MG SUB-Q (11:22)
[2021-04-29] MEDS: CHOLECALCIFEROL 1,000 UNITS TABLET 1000 UNITS PO (11:22)
[2021-04-29] MEDS: ASPIRIN 81 MG ENTERIC TABLET PO (11:22)
[2021-04-29] MEDS: CYANOCOBALAMIN 1,000 MCG TABLET 1000 MCG PO (11:23)
[2021-04-29] MEDS: atenoloL 50 MG TABLET PO (11:23)
[2021-04-29] MEDS: MONTELUKAST SODIUM 10 MG TABLET PO (11:23)
[2021-04-29] MEDS: PANTOPRAZOLE 40 MG TABLET PO (11:23)
[2021-04-29] MEDS: CLOPIDOGREL BISULFATE 75 MG TABLET PO (11:24)
[2021-04-29] MEDS: SODIUM CHLORIDE 1 GM TABLET PO ×2 (11:24→17:06)
[2021-04-29] MEDS: SACCHAROMYCES BOULARDII 250 MG CAPSULE PO ×2 (11:26→17:08)
--- NOTE | 2021-04-29 13:16 | WPDPN ---
Progress Note: A&P Assessment and Plan (1) Bacteremia: Code(s): R78.81 - Bacteremia Status: Acute Assessment and Plan: Patient with the growth of Pseudomonas aeruginosa x4 blood cultures Continue gentamicin second dose and Zosyn day 4 WBCs 19.3>19.7>11.9>10.5>11.3 (2) Sepsis: Code(s): A41.9 - Sepsis, unspecified organism Status: Acute Assessment and Plan: Pneumonia, LA 3, Temp 101.8, Tachypnea, Acute on CRF, Metabolic Acidosis (pH 7.35, pCo2 25, HCO3 13.5), increased oxygen demand (Negative for COVID, Flu A/B), WBC 15.5, 2 L NS given in ER followed by 1 L on the floor, now NS at 75ml/h to avoid fluid overload (BNP 4544), 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 Jayla Rasmussen DC'ed Zosyn 2.25 Q6H restarted and continue with Azithromycin, Blood Cx Gram Negative Bacilli Aerobic bottle only. 04/26/2021 Continue with Zosyn, Azithromycin was stopped previously, WBC 19.7, Plt 123, Na 128, CO2 17, Cr, 1.3, BNP v7746, LA 0.9. 04/27/2021 Patient growing Pseudomonas in all blood culture bottles, currently on Zosyn and Gentamicin, WBC 11.9 Resolved Waiting on bed placement at [facility] WBCs within normal limits and patient afebrile (3) Pneumonia: Code(s): J18.9 - Pneumonia, unspecified organism Status: Acute Assessment and Plan: Abd/Pel CT report includes: Aspiration pneumonitis/pneumonia RLL, Cardiomegaly, NC 4L wean, VS Q4H, monitor SpO2, Blood Cx pending 04/25/2021 Ab as noted above, Zosyn and Azithromycin, increased L/min to 5-6 d/t pO2 of 62.4, Gram Neg Bacilli Aerobic bottle only 04/26/2021 Azithromycin was stopped only Zosyn at this time, Weaning supplemental O2, down to 4L/min with SpO2 of 96%, Blood Cx Pseudomonas aeruginosa X 4 bottles, added Florastor 04/27/2021 patient had increased difficulty with breathing as of last night 2200 hours, this may have possibly been a COPD issue, He was given DuoNeb, 125mg Solu-Medrol, his course rhonchi cleared up thereafter. Breathing improved, x ray today indicated stable lung opacities Waiting on bed placement at [facility] Fungal culture pending Continue gentamicin and Zosyn (4) Pulmonary embolus: Qualifiers: Acute cor pulmonale presence: unspecified Chronicity: acute Pulmonary embolism type: other Qualified Code(s): I26.99 - Other pulmonary embolism without acute cor pulmonale Code(s): I26.99 - Other pulmonary embolism without acute cor pulmonale Status: Acute Assessment and Plan: VQ scan reading as High probability for pulmonary embolism, multiple Bilateral, Therapeutic Lovenox, Supplemental O2 04/25/2021 Continue Therapeutic Lovenox, will transition to a PO anticoagulant covered by his insurance. 04/26/2021 Pt is breathing well, he did need an increase in O2 now weaning down again. Continue with Lovenox 04/27/2021 As noted above Pt has difficulty breathing which resolved with DuoNeb and Steroids, continue with Therapeutic Lovenox Waiting on bed placement at [facility] Will start a heparin drip (5) Elevated d-dimer: Code(s): R79.89 - Other specified abnormal findings of blood chemistry Status: Acute Assessment and Plan: D-Dimer 3.05, VQ scan obtained see above Discontinue Lovenox we will start heparin (6) CHF (congestive heart failure): Code(s): I50.9 - Heart failure, unspecified Status: Acute Assessment and Plan: Likely related to Acute on Chronic Renal Failure, will monitor I&O and lung function, will monitor BNP levels, HOB 30`, no Lasix d/t Sepsis, EKG SR, Echocardiogram for 04/27/2021 (not available on WE), BNP 4544 (corrected on 04/25/2021), will monitor BNP, Lung function, watch for fluid o
[2021-04-29 14:27] LABS: INR 1.1; Partial Thromboplastin Time 31.9 SEC (23.90-30.70); Prothrombin Time 11.4 Seconds (9.50-12.10)
[2021-04-29] MEDS: HEPARIN SOD/D5W 100 UNITS/ML 25,000 UNITS/250 ML BAG 12.38 UNITS IV CONT (14:52)
[2021-04-29] MEDS: HEPARIN SODIUM 5,000 UNITS/ML VIAL 5500 UNITS IV PUSH (15:07)
[2021-04-29] MEDS: VENLAFAXINE HCL XR 75 MG CAP.ER.24H PO (17:06)
--- NOTE | 2021-04-29 17:52 | PM.DS ---
DS: Admitting Diagnosis Admitting Diagnosis Pneumonia, pulmonary embolus, hypoxia, acute renal failure DS: Discharge Diagnosis Discharge Diagnosis (1) Elevated troponin: Code(s): R77.8 - Other specified abnormalities of plasma proteins Status: Acute (2) Pseudomonal bacteremia: Code(s): R78.81 - Bacteremia; B96.5 - Pseudomonas (aeruginosa) (mallei) (pseudomallei) as the cause of diseases classified elsewhere Status: Acute (3) Pulmonary hypertension: Code(s): I27.20 - Pulmonary hypertension, unspecified Status: Acute (4) Pulmonary embolus: Qualifiers: Acute cor pulmonale presence: unspecified Chronicity: acute Pulmonary embolism type: other Qualified Code(s): I26.99 - Other pulmonary embolism without acute cor pulmonale Code(s): I26.99 - Other pulmonary embolism without acute cor pulmonale Status: Acute (5) Acute on chronic renal failure: Code(s): N17.9 - Acute kidney failure, unspecified; N18.9 - Chronic kidney disease, unspecified Status: Acute (6) Pneumonia: Code(s): J18.9 - Pneumonia, unspecified organism Status: Acute (7) Sepsis: Code(s): A41.9 - Sepsis, unspecified organism Status: Acute (8) CHF (congestive heart failure): Code(s): I50.9 - Heart failure, unspecified Status: Acute (9) COPD (chronic obstructive pulmonary disease): Qualifiers: COPD type: unspecified COPD Qualified Code(s): J44.9 - Chronic obstructive pulmonary disease, unspecified Code(s): J44.9 - Chronic obstructive pulmonary disease, unspecified Status: Acute DS: Summary Hospital Course Reason for hospitalization: Acute renal failure, pulmonary embolism, hypoxia Hospital Course: 75-year-old man with a history congestive heart failure, COPD, prostate cancer and mild chronic renal failure admitted through the emergency department after presenting with right flank pain and shortness of breath for 3 days. Patient was diagnosed with pulmonary embolus and probable cor pulmonale with a V/Q scan and a right lower lobe pneumonia was noted on x-ray. Patient was started on enoxaparin, Zosyn, steroids and breathing treatments. On the evening of April 26 patient was noted to have increased respiratory distress and increasing oxygen requirement. Was noted the next day that he had Pseudomonas growing out of the 4 blood cultures that have been drawn since his admission. Gentamicin was added to his regimen. He was also noted on 04/27 to have a troponin of 4 ng/ml (0.0-0.034). The next day it was 251 ng/l (0-64) and over the next 2 days it slowly decline 223.9 ng/l. Patient denied having chest pressure or tightness, only pain or soreness with cough. Echocardiogram on 04/27 showed normal left ventricular systolic function with an EF of 60 65% with grade 1 diastolic dysfunction and moderate pulmonary hypertension (est 54 mmHg) and a severely enlarged right atrial chamber consistent with cor pulmonale. Patient was already taking a daily aspirin, clopidogrel and beta-jocy and was anticoagulated with enoxaparin. Numerous attempts at transfer to facility with cardiac care were made. Oxygen requirements were as high as 6 liters/minute by nasal cannula improving to 2 liters/minute by the time of discharge. Status at Discharge Cognitive/behavioral status at discharge: Alert, oriented to self and place. Overall status at discharge: patient is not back to baseline Time Spent with Patient Time attestation: Total time spent providing and/or coordinating discharge services: 30 Exam Const: General: cooperative, alert, acute distress moderate and ill appearing acutely Nutritional Appearance: overweight Orientation/consciousness: oriented to person, oriented to place and oriented to time Limitations: no limitations HENMT: Head: normal to inspection and atraumatic Face and sinus: normal facial exam Mouth: Yes Normal oral and palatal mucosa presen
--- NOTE | 2021-04-29 18:55 | PC.NURSE ---
REPORT CALLED TO ONIEL AT [facility], PT WILL BE GOING TO ROOM 516. PT AND FAMILY AWARE. ALL PT BELONGINGS, HEARING AID, GLASSES, DENTURES, PHONE, MACHINE III COREMAKER, CLOTHING, SHOES, AND MEDICATIONS WITH PATIENT.
--- NOTE | 2021-04-29 19:19 | PC.NURSE ---
[address] [facility] notified of the need to transfer patient to [facility] in [place], [place]. and son, Rio, notified of bed assignment.
--- NOTE | 2021-04-29 19:45 | PC.NURSE ---
PT TRANSFERRED TO [facility] STRETCHER FROM BED WITHOUT DIFFICULTY. OXYGEN IN PLACE. ALL BELONGINGS WITH PATIENT. IV HEPARIN INFUSING, IV PUMP SENT WITH [facility], WILL RETURN AFTER TRANSPORT.
== END 2021-04-29 19:45 | disposition short-term general hospital (02) | DRG 871 ==
LOC: CHSED 22:52 → CHS2ND 04-24 07:15
PROVIDERS: Nurse Practitioner; Nurse Practitioner Family; Admitting Provider Emergency Medicine; Emergency Provider Emergency Medicine; PCP Internal Medicine; Visit Provider Emergency Medicine
DX: I26.99 Other pulmonary embolism without acute cor pulmonale (principal); E86.0 Dehydration; N17.9 Acute kidney failure, unspecified; I50.9 Heart failure, unspecified; J44.9 Chronic obstructive pulmonary disease, unspecified; Z87.891 Personal history of nicotine dependence; A41.52 Sepsis due to Pseudomonas; J18.9 Pneumonia, unspecified organism; R65.20 Severe sepsis without septic shock; I27.20 Pulmonary hypertension, unspecified; I08.3 Combined rheumatic disorders of mitral, aortic and tricuspid valves; N18.9 Chronic kidney disease, unspecified; C61 Malignant neoplasm of prostate; E87.5 Hyperkalemia; E83.42 Hypomagnesemia; R77.8 Other specified abnormalities of plasma proteins; K14.6 Glossodynia
CPT/HCPCS: 36415; 36600; 51701; 71045; 74176; 78580; 80048; 80053; 80170; 81001; 82805; 83605; 83735; 83880; 84484; 85025; 85027; 85380; 85610; 85730; 87040; 87103; 87147; 87186; 87426; 87804; 93005; 93306; 94640; 96361; 96365; 96372; 99285; A9270; A9540; C9803; J0456; J0696; J1580; J1644; J1650; J1940; J2543; J2930; J3475; J7030; J7040; J7512

== ENCOUNTER 2021-05-11 10:26 | Outpatient (NON) | payer MEDICARE, SELFPAY ==
[2021-05-11 10:39] LABS: Basophils Absolute Auto 0.05 K/mm3 (0.00-0.10); Basophils Percent Auto 0.5 % (0.0-1.0); Eosinophils Absolute Auto 0.04 K/mm3 (0.02-0.50); Eosinophils Percent Auto 0.4 % (1.0-6.0); Hematocrit 30.6 % (37.0-46.0); Hemoglobin 9.7 g/dL (12.4-15.3); Immature Granulocyte Absolute 0.21 K/mm3 (0.00-0.00); Immature Granulocyte Percent A 1.9 % (0.0-0.0); Lymphocytes Absolute Auto 0.83 K/mm3 (1.10-4.50); Lymphocytes Percent Auto 7.7 % (18.0-42.0); Mean Corpuscular HGB Conc 31.7 g/dL (32.0-36.0); Mean Corpuscular Hemoglobin 34.9 pg (27.0-31.0); Mean Corpuscular Volume 110.1 fL (78.0-102.0); Mean Platelet Volume 9.6 fl (8.7-11.0); Monocytes Absolute Auto 0.61 K/mm3 (0.10-0.90); Monocytes Percent Auto 5.6 % (2.0-11.0); Neutrophils Absolute Auto 9.1 K/mm3 (1.7-7.2); Neutrophils Percent Auto 83.9 % (50.0-70.0); Platelet Count Result 349 K/mm3 (150-420); Red Blood Count 2.78 M/mm3 (4.70-6.10); Red Cell Distribution Width 12.5 % (11.6-14.4); White Blood Count 10.8 K/mm3 (4.8-10.8)
[2021-05-11 10:57] LABS: Alanine Aminotransferase 21 U/L (16-63); Albumin Level 2.2 g/dL (3.4-5.0); Alkaline Phosphatase 115 U/L (46-116); Anion Gap 11 mmol/L (8-16); Aspartate Amino Transferase 25 U/L (15-37); Bilirubin,Total 0.4 mg/dL (0.00-1.00); Blood Urea Nitrogen 14 mg/dL (7-18); Calcium 9.3 mg/dL (8.5-10.1); Carbon Dioxide 27 mmol/L (21-32); Chloride 98 mmol/L (98-108); Estimated Glomerular Filt Rate 55; Glucose 88 mg/dL (70-99); Osmolality Calculated 281 mOsm/kg (285-295); Potassium 4.3 mmol/L (3.5-5.1); Sodium 136 mmol/L (136-145); Total Protein 6.6 g/dL (6.4-8.2)
== END 2021-05-11 10:27 | disposition home or self-care (01) ==
LOC: CHSLAB 10:28
PROVIDERS: Visit Provider Internal Medicine Infectious Disease
DX: J18.9 Pneumonia, unspecified organism (principal); Z79.2 Long term (current) use of antibiotics
CPT/HCPCS: 80053; 85025

== ENCOUNTER 2021-05-14 15:08 | Outpatient (NON) | payer MEDICARE, SELFPAY ==
[2021-05-14 15:31] LABS: Basophils Absolute Auto 0.04 K/mm3 (0.00-0.10); Basophils Percent Auto 0.4 % (0.0-1.0); Eosinophils Absolute Auto 0.02 K/mm3 (0.02-0.50); Eosinophils Percent Auto 0.2 % (1.0-6.0); Hematocrit 26.6 % (37.0-46.0); Hemoglobin 8.5 g/dL (12.4-15.3); Immature Granulocyte Absolute 0.12 K/mm3 (0.00-0.00); Immature Granulocyte Percent A 1.3 % (0.0-0.0); Lymphocytes Absolute Auto 0.63 K/mm3 (1.10-4.50); Lymphocytes Percent Auto 6.7 % (18.0-42.0); Mean Corpuscular Hemoglobin 35.4 pg (27.0-31.0); Mean Corpuscular Volume 110.8 fL (78.0-102.0); Mean Platelet Volume 10.5 fl (8.7-11.0); Monocytes Absolute Auto 0.36 K/mm3 (0.10-0.90); Monocytes Percent Auto 3.8 % (2.0-11.0); Neutrophils Absolute Auto 8.2 K/mm3 (1.7-7.2); Neutrophils Percent Auto 87.6 % (50.0-70.0); Platelet Count Result 249 K/mm3 (150-420); Red Cell Distribution Width 12.8 % (11.6-14.4); White Blood Count 9.4 K/mm3 (4.8-10.8)
[2021-05-14 15:55] LABS: Alanine Aminotransferase 19 U/L (16-63); Albumin Level 2.1 g/dL (3.4-5.0); Alkaline Phosphatase 104 U/L (46-116); Anion Gap 10 mmol/L (8-16); Aspartate Amino Transferase 20 U/L (15-37); Bilirubin,Total 0.3 mg/dL (0.00-1.00); Blood Urea Nitrogen 16 mg/dL (7-18); Calcium 8.5 mg/dL (8.5-10.1); Carbon Dioxide 27 mmol/L (21-32); Chloride 101 mmol/L (98-108); Estimated Glomerular Filt Rate 46; Glucose 110 mg/dL (70-99); Osmolality Calculated 288 mOsm/kg (285-295); Potassium 4.3 mmol/L (3.5-5.1); Sodium 138 mmol/L (136-145); Total Protein 6.2 g/dL (6.4-8.2)
== END 2021-05-14 15:09 | disposition home or self-care (01) ==
LOC: CHSLAB 15:10
PROVIDERS: Visit Provider Internal Medicine Infectious Disease
DX: J15.1 Pneumonia due to Pseudomonas (principal)
CPT/HCPCS: 36415; 80053; 85025

== ENCOUNTER 2021-05-18 14:56 | Outpatient (NON) | payer MEDICARE, SELFPAY ==
[2021-05-18 15:41] LABS: Basophils Absolute Auto 0.03 K/mm3 (0.00-0.10); Basophils Percent Auto 0.3 % (0.0-1.0); Eosinophils Absolute Auto 0.01 K/mm3 (0.02-0.50); Eosinophils Percent Auto 0.1 % (1.0-6.0); Hematocrit 26.9 % (37.0-46.0); Hemoglobin 8.4 g/dL (12.4-15.3); Immature Granulocyte Absolute 0.14 K/mm3 (0.00-0.00); Immature Granulocyte Percent A 1.5 % (0.0-0.0); Lymphocytes Absolute Auto 0.81 K/mm3 (1.10-4.50); Lymphocytes Percent Auto 8.4 % (18.0-42.0); Mean Corpuscular HGB Conc 31.2 g/dL (32.0-36.0); Mean Corpuscular Volume 112.1 fL (78.0-102.0); Mean Platelet Volume 10.6 fl (8.7-11.0); Monocytes Absolute Auto 0.36 K/mm3 (0.10-0.90); Monocytes Percent Auto 3.8 % (2.0-11.0); Neutrophils Absolute Auto 8.2 K/mm3 (1.7-7.2); Neutrophils Percent Auto 85.9 % (50.0-70.0); Platelet Count Result 304 K/mm3 (150-420); Red Cell Distribution Width 13.3 % (11.6-14.4); White Blood Count 9.6 K/mm3 (4.8-10.8)
[2021-05-18 16:10] LABS: Alanine Aminotransferase 19 U/L (16-63); Albumin Level 2.3 g/dL (3.4-5.0); Alkaline Phosphatase 108 U/L (46-116); Anion Gap 8 mmol/L (8-16); Aspartate Amino Transferase 41 U/L (15-37); Bilirubin,Total 0.2 mg/dL (0.00-1.00); Blood Urea Nitrogen 22 mg/dL (7-18); Calcium 9.3 mg/dL (8.5-10.1); Carbon Dioxide 28 mmol/L (21-32); Chloride 103 mmol/L (98-108); Estimated Glomerular Filt Rate 46; Glucose 86 mg/dL (70-99); Osmolality Calculated 290 mOsm/kg (285-295); Potassium 4.8 mmol/L (3.5-5.1); Sodium 139 mmol/L (136-145); Total Protein 6.4 g/dL (6.4-8.2)
== END 2021-05-18 14:57 | disposition home or self-care (01) ==
LOC: CHSLAB 14:57
PROVIDERS: Visit Provider Internal Medicine Infectious Disease
DX: J15.1 Pneumonia due to Pseudomonas (principal)
CPT/HCPCS: 80053; 85025

== ENCOUNTER 2021-06-12 08:59 | Outpatient (CLI) | payer MEDICARE, OTHER, MEDICAID, SELFPAY ==
--- NOTE | ~2021-06-12 | XR_ITS ---
XR chest 2V 06/12/2021 09:32 Indication: Shortness of breath. COPD. Recent pneumonia. Procedure: 2 view chest Comparison: 04/27/2021 Findings: There has been significant improvement of right basilar airspace disease, compatible with r esolving pneumonia. Small right pleural effusion. Heart size normal. Left lung clear. There are surgi stephany changes in the upper abdomen. Impression: 1: Significant improvement of right basilar airspace disease, compatible with resolving pneumonia. 2: Small right pleural effusion. Reviewed, dictated and finalized at location A. Impression: 1: Significant improvement of right basilar airspace disease, compatible with r esolving pneumonia. 2: Small right pleural effusion.
[2021-06-12 09:27] VITALS: PULSE 62; O2SAT 100
[2021-06-12 09:34] VITALS: PULSE 94; O2SAT 95
--- NOTE | 2021-06-12 09:41 | HOMEO2EVAL ---
Evaluation was performed at [facility] Home Oxygen Evaluation RC: Home Oxygen (O2) Evaluation Start: 06/12/21 09:36 Freq: Status: Active Protocol: RPE Activity Type Activity Date Activity User E-Sign Co-Sign Detail Recorded Client Recorded Date Recorded By Document 06/12/21 09:27 SJCarlos [id number] 06/12/21 09:39 SJB Document 06/12/21 09:34 SJB [id number] 06/12/21 09:39 SJB 06/12/21 06/12/21 09:27 09:34 Home O2 Evaluation Test Phase Resting Exercise Oxygen Delivery Room Air Room Air Pulse Oximetry (90-100 %) 100 95 Pulse Rate (60-100 beats/min) 62 94 Activity Tolerance Good Rating of Perceived Dyspnea (PD) +1 Mild, Noticeable to the Participant but Not to an Observer Rate of Perceived Exertion (PE) 12 Ambulation Distance (feet) 416 Home Oxygen Evaluation Comments O2 walk will Walked approx begin 416 ft on room air using cane. No problems or complaints of SOB. Pt's only complaint is a bad hip/ pain. Tolerated walk very well . Treatment Charges O2 Evaluation - Outpatient
--- NOTE | 2021-06-12 11:12 | WPDPFTINT ---
PFT Procedure Performed PFT Procedure Performed Spirometry with Pre/Post Bronchodilator Plethysmography (Lung Vol) Diffusing Cap (DLCO) Flow Vol Loop PFT Interpretation DOS: 06/12/2021 REQUESTING: Dr Helms; Dr Carvalho REASON FOR TESTING: COPD PULMONARY FUNCTION TESTS Results are reliable and reproducible. Spirometry: FEV1 is 69% predicted, 2.11 L, moderately reduced. The FVC is 105%, normal. FEV1/FVC ration is 65%, decreased, consistent with airflow obstruction. There is no significant response to bronchodilator. Lung volumes: Total lung capacity 106% predicted normal. Residual volume is 97%, normal. Airway resistance 121%, normal. There is no hyperinflation or air trapping. Diffusion: DLCO is 67%, mildly decreased. Flow volume loop: There is scooping of the expiratory limb consistent with an obstructive process. IMPRESSION: There is a moderate obstructive ventilatory impairment with normal lung volumes and a mild reduction in diffusion capacity. This pattern is consistent with COPD. Lack of response to bronchodilator should not preclude use if clinically indicated. Celina Vuong MD
== END 2021-06-12 09:00 | disposition home or self-care (01) ==
LOC: CHSCARD 09:02
PROVIDERS: PCP Internal Medicine; Visit Provider Internal Medicine Pulmonary Disease
DX: J44.9 Chronic obstructive pulmonary disease, unspecified (principal); F17.211 Nicotine dependence, cigarettes, in remission; I26.99 Other pulmonary embolism without acute cor pulmonale
CPT/HCPCS: 71046; 94060; 94618; 94726; 94729

== ENCOUNTER 2021-06-26 15:38 | Outpatient (CLI) | payer MEDICARE, OTHER, SELFPAY ==
[2021-06-26 16:26] LABS: Prostate Specific Antigen < 0.1 ng/mL (< OR = 4.0)
[2021-07-01 09:00] LABS: Testosterone Total 10 ng/dL (250-1100)
== END 2021-06-26 15:39 | disposition home or self-care (01) ==
LOC: CHSLAB 15:40
PROVIDERS: PCP Internal Medicine; Visit Provider Radiology Radiation Oncology
DX: C61 Malignant neoplasm of prostate (principal)
CPT/HCPCS: 36415; 84153; 84403

== ENCOUNTER 2021-09-23 16:52 | Outpatient (CLI) | payer MEDICARE, OTHER, SELFPAY ==
[2021-09-23 17:38] LABS: SARS-CoV-2 Ag Positive (Negative)
== END 2021-09-23 16:53 | disposition home or self-care (01) ==
LOC: CHSLAB 16:54
PROVIDERS: PCP Internal Medicine; Visit Provider Internal Medicine
DX: U07.1 COVID-19 (principal); J06.9 Acute upper respiratory infection, unspecified
CPT/HCPCS: 87426; C9803

== ENCOUNTER 2021-09-30 13:29 | Outpatient (CLI) | payer MEDICARE, OTHER, SELFPAY ==
[2021-09-30] MEDS: ACETAMINOPHEN 325 MG TABLET 650 MG PO (13:50)
[2021-09-30] MEDS: diphenhydrAMINE HCl CAP 25 MG CAPSULE PO (13:51)
[2021-09-30] MEDS: FAMOTIDINE 20 MG TABLET PO (13:52)
[2021-09-30 13:53] VITALS: BMI 21.3
[2021-09-30 13:55] VITALS: BP 135/78; PULSE 68; RESP 14; TEMP 36.3; O2SAT 94
--- NOTE | 2021-09-30 14:19 | PC.NURSE ---
Patient here for Bamianivimab and Estesevimab IV infusion r/t to being Covid Positive and meets high risk criteria. Education given. Permit signed. PO premeds and IV medication administered see NOV.
[2021-09-30 15:00] VITALS: BP 139/84; PULSE 77; RESP 14; TEMP 36.3; O2SAT 97
--- NOTE | 2021-09-30 15:49 | PC.NURSE ---
Tolerated infusion well. Safe exit of hospital.
== END 2021-09-30 13:30 | disposition home or self-care (01) ==
PROVIDERS: PCP Internal Medicine; Visit Provider Internal Medicine
DX: U07.1 COVID-19 (principal); J44.9 Chronic obstructive pulmonary disease, unspecified
CPT/HCPCS: A9270; M0245

== ENCOUNTER 2021-10-15 12:16 | Outpatient (NON) | payer MEDICARE, SELFPAY ==
[2021-10-15 12:30] LABS: Add Urine Microscopic? NO; Appearance Urine Clear (Clear); Bilirubin Urine Negative (Negative); Blood Urine Negative (Negative); Color Urine Light Yellow (Yellow); Glucose Urine UA Negative (Negative); Hematocrit 37.7 % (37.0-46.0); Hemoglobin 12.2 g/dL (12.4-15.3); Immature Granulocyte Absolute 0.07 K/mm3 (0.00-0.00); Immature Granulocyte Percent A 0.9 % (0.0-0.0); Ketones Urine Negative (Negative); Leukocyte Esterase Ur Negative LEU/UL (Negative); Lymphocytes Absolute Auto 1.11 K/mm3 (1.10-4.50); Lymphocytes Percent Auto 14.6 % (18.0-42.0); Mean Corpuscular HGB Conc 32.4 g/dL (32.0-36.0); Mean Corpuscular Hemoglobin 36.5 pg (27.0-31.0); Mean Corpuscular Volume 112.9 fL (78.0-102.0); Monocytes Absolute Auto 0.31 K/mm3 (0.10-0.90); Monocytes Percent Auto 4.1 % (2.0-11.0); Neutrophils Absolute Auto 6.1 K/mm3 (1.7-7.2); Neutrophils Percent Auto 80.4 % (50.0-70.0); Nitrate Urine Negative (Negative); Nucleated Red Blood Cells Absolute Auto 0.02 K/mm3 (0.00-0.00); Nucleated Red Blood Cells Perc 0.3 % (0-0.0); Platelet Count Result 221 K/mm3 (150-420); Protein Urine Negative (Negative); Red Blood Count 3.34 M/mm3 (4.70-6.10); Specific Grav Ur 1.025 (1.010-1.020); Urobilinogen Urine 0.2 mg/dL (0.2-1.0); White Blood Count 7.6 K/mm3 (4.8-10.8)
[2021-10-15 12:56] LABS: Alanine Aminotransferase 18 U/L (16-63); Albumin Level 3.6 g/dL (3.4-5.0); Alkaline Phosphatase 118 U/L (46-116); Anion Gap 15 mmol/L (8-16); Aspartate Amino Transferase 16 U/L (15-37); Bilirubin,Total 0.4 mg/dL (0.00-1.00); Blood Urea Nitrogen 38 mg/dL (7-18); Calcium 9.7 mg/dL (8.5-10.1); Carbon Dioxide 18 mmol/L (21-32); Chloride 102 mmol/L (98-108); Creatine Kinase 74 U/L (39-308); Estimated Glomerular Filt Rate 39; Glucose 155 mg/dL (70-99); Osmolality Calculated 292 mOsm/kg (285-295); Potassium 5.6 mmol/L (3.5-5.1); Sodium 135 mmol/L (136-145); Total Protein 6.6 g/dL (6.4-8.2); Troponin I 18.5 ng/L (0.00-60.4)
[2021-10-15 13:05] LABS: CRP < 0.2 mg/dL (0.0-0.9)
== END 2021-10-15 12:17 | disposition home or self-care (01) ==
LOC: CHSLAB 12:17
PROVIDERS: Visit Provider Internal Medicine
DX: I50.9 Heart failure, unspecified (principal); I10 Essential (primary) hypertension; D64.9 Anemia, unspecified; Z86.16 Personal history of COVID-19
CPT/HCPCS: 36415; 80053; 81003; 82550; 82553; 84484; 85025; 86140

== ENCOUNTER 2021-10-20 14:08 | Outpatient (CLI) | payer MEDICARE, SELFPAY ==
[2021-10-20 15:22] LABS: SARS-CoV-2 Ag Negative (Negative)
== END 2021-10-20 14:09 | disposition home or self-care (01) ==
LOC: CHSLAB 14:09
PROVIDERS: PCP Internal Medicine; Visit Provider Internal Medicine
DX: R05.9 Cough, unspecified (principal); Z20.822 Contact with and (suspected) exposure to COVID-19
CPT/HCPCS: 87426; C9803

== ENCOUNTER 2021-12-21 15:23 | Outpatient (CLI) | payer MEDICARE, MEDICAID, SELFPAY ==
--- NOTE | ~2021-12-21 | XR_ITS ---
EXAMINATION: XR hip LT min 2V DATE: 12/21/2021 16:00 INDICATION: Chronic posterior left hip pain TECHNIQUE: Anteroposterior and frog-leg lateral views of the left hip were obtained. COMPARISON: None. FINDINGS: Alignment is normal. No fracture or suspected avascular necrosis. Chondrocalcinosis at the left femor al head. Mild left hip osteoarthritis with small marginal osteophytes along the femoral head. Vascula r stenting along the left common iliac and left superficial femoral arteries. A few surgical clips in the region of the prostate. Multiple phleboliths in the pelvis. IMPRESSION: 1. Mild left hip osteoarthritis. Reviewed, dictated and finalized at location B.
[2021-12-21 15:48] LABS: Basophils Absolute Auto 0.02 K/mm3 (0.00-0.10); Basophils Percent Auto 0.2 % (0.0-1.0); Eosinophils Absolute Auto 0.03 K/mm3 (0.02-0.50); Eosinophils Percent Auto 0.3 % (1.0-6.0); Hematocrit 38.3 % (37.0-46.0); Hemoglobin 11.8 g/dL (12.4-15.3); Immature Granulocyte Absolute 0.05 K/mm3 (0.00-0.00); Immature Granulocyte Percent A 0.6 % (0.0-0.0); Lymphocytes Absolute Auto 0.97 K/mm3 (1.10-4.50); Lymphocytes Percent Auto 11.1 % (18.0-42.0); Mean Corpuscular HGB Conc 30.8 g/dL (32.0-36.0); Mean Corpuscular Hemoglobin 35.5 pg (27.0-31.0); Mean Corpuscular Volume 115.4 fL (78.0-102.0); Mean Platelet Volume 9.1 fl (8.7-11.0); Monocytes Absolute Auto 0.52 K/mm3 (0.10-0.90); Neutrophils Absolute Auto 7.1 K/mm3 (1.7-7.2); Neutrophils Percent Auto 81.8 % (50.0-70.0); Platelet Count Result 205 K/mm3 (150-420); Red Blood Count 3.32 M/mm3 (4.70-6.10); Red Cell Distribution Width 13.1 % (11.6-14.4); White Blood Count 8.7 K/mm3 (4.8-10.8)
[2021-12-21 16:09] LABS: Alanine Aminotransferase 16 U/L (16-63); Albumin Level 3.9 g/dL (3.4-5.0); Alkaline Phosphatase 99 U/L (46-116); Anion Gap 13 mmol/L (8-16); Aspartate Amino Transferase 17 U/L (15-37); Bilirubin,Total 0.1 mg/dL (0.00-1.00); Blood Urea Nitrogen 41 mg/dL (7-18); Calcium 9.8 mg/dL (8.5-10.1); Carbon Dioxide 18 mmol/L (21-32); Chloride 106 mmol/L (98-108); Cholesterol 120 mg/dL (0-200); Estimated Glomerular Filt Rate 37; Glucose 99 mg/dL (70-99); HDL Direct 59 mg/dL (40-60); LDL Cholesterol Calculated 32 mg/dL (<130); NT Pro B Type Natriuretic Pept 979 pg/mL (0-125); Osmolality Calculated 294 mOsm/kg (285-295); Potassium 5.6 mmol/L (3.5-5.1); Sodium 137 mmol/L (136-145); Triglycerides 144 mg/dL (0-150)
[2021-12-21 17:18] LABS: Thyroid Stimulating Hormone 1.45 uIU/mL (0.36-3.74)
[2021-12-24 09:43] LABS: Methylmalonic Acid 196 nmol/L (87-318)
== END 2021-12-21 15:24 | disposition home or self-care (01) ==
PROVIDERS: PCP Internal Medicine; Visit Provider Internal Medicine
DX: I73.9 Peripheral vascular disease, unspecified (principal); J44.9 Chronic obstructive pulmonary disease, unspecified; I50.9 Heart failure, unspecified; D53.9 Nutritional anemia, unspecified
CPT/HCPCS: 36415; 73502; 80053; 80061; 83880; 83921; 84443; 85025

== ENCOUNTER 2022-01-05 15:40 | Outpatient (CLI) | payer MEDICARE, SELFPAY ==
[2022-01-05 17:09] LABS: Alanine Aminotransferase 17 U/L (16-63); Albumin Level 3.9 g/dL (3.4-5.0); Alkaline Phosphatase 92 U/L (46-116); Anion Gap 11 mmol/L (8-16); Aspartate Amino Transferase 16 U/L (15-37); Bilirubin,Total 0.1 mg/dL (0.00-1.00); Blood Urea Nitrogen 52 mg/dL (7-18); Calcium 9.8 mg/dL (8.5-10.1); Carbon Dioxide 23 mmol/L (21-32); Chloride 105 mmol/L (98-108); Estimated Glomerular Filt Rate 32; Glucose 98 mg/dL (70-99); NT Pro B Type Natriuretic Pept 698 pg/mL (0-125); Osmolality Calculated 302 mOsm/kg (285-295); Potassium 4.7 mmol/L (3.5-5.1); Sodium 139 mmol/L (136-145); Total Protein 6.7 g/dL (6.4-8.2)
== END 2022-01-05 15:41 | disposition home or self-care (01) ==
LOC: CHSLAB 15:42
PROVIDERS: PCP Internal Medicine; Visit Provider Internal Medicine
DX: E87.5 Hyperkalemia (principal); I50.9 Heart failure, unspecified
CPT/HCPCS: 36415; 80053; 83880

== ENCOUNTER 2022-03-09 10:24 | Outpatient (CLI) | payer MEDICARE, MEDICAID, SELFPAY ==
--- NOTE | 2022-03-09 10:50 | ECG_ITS ---
Measurements Intervals Simpson Rate: 67 P: 62 NM: 158 QRS: 84 QRSD: 104 T: 77 QT: 380 QTc: 402 Interpretive Statements SINUS RHYTHM WITH OCCASIONAL VENTRICULAR PREMATURE COMPLEXES COMPARED TO ECG 04/27/2021 10:11:09 NO SIGNIFICANT CHANGES Electronically Signed On 03-09-2022 12:08:34 CDT by Malick Oswald M.D.
[2022-03-09 11:08] LABS: Alanine Aminotransferase 20 U/L (16-63); Albumin Level 3.7 g/dL (3.4-5.0); Alkaline Phosphatase 83 U/L (46-116); Anion Gap 8 mmol/L (8-16); Aspartate Amino Transferase 19 U/L (15-37); Bilirubin,Total 0.3 mg/dL (0.00-1.00); Blood Urea Nitrogen 48 mg/dL (7-18); Calcium 9.7 mg/dL (8.5-10.1); Carbon Dioxide 24 mmol/L (21-32); Chloride 105 mmol/L (98-108); Estimated Glomerular Filt Rate 30; Glucose 90 mg/dL (70-99); Magnesium 1.7 mg/dL (1.8-2.4); NT Pro B Type Natriuretic Pept 831 pg/mL (0-125); Osmolality Calculated 296 mOsm/kg (285-295); Potassium 4.8 mmol/L (3.5-5.1); Sodium 137 mmol/L (136-145); Total Protein 7.1 g/dL (6.4-8.2)
== END 2022-03-09 10:25 | disposition home or self-care (01) ==
LOC: CHSLAB 10:26
PROVIDERS: PCP Internal Medicine; Visit Provider Internal Medicine
DX: I50.9 Heart failure, unspecified (principal); N18.30 Chronic kidney disease, stage 3 unspecified; R00.0 Tachycardia, unspecified
CPT/HCPCS: 36415; 80053; 83735; 83880; 93005

== ENCOUNTER 2022-05-10 15:42 | Outpatient (CLI) | payer MEDICARE, SELFPAY ==
[2022-05-10 17:03] LABS: Influenza A QL RT-PCR Negative (Negative); Influenza B QL RT-PCR Negative (Negative); SARS-CoV-2 RNA PCR Negative (Negative)
== END 2022-05-10 15:43 | disposition home or self-care (01) ==
PROVIDERS: PCP Internal Medicine; Visit Provider Nurse Practitioner Family
DX: J06.9 Acute upper respiratory infection, unspecified (principal); Z20.822 Contact with and (suspected) exposure to COVID-19
CPT/HCPCS: 87502; C9803; U0003; U0005

== ENCOUNTER 2022-05-18 17:13 | Outpatient (CLI) | payer MEDICARE, SELFPAY ==
[2022-05-18 17:59] LABS: Prostate Specific Antigen < 0.1 ng/mL (< OR = 4.0)
[2022-05-22 12:11] LABS: Testosterone Total 8 ng/dL (250-1100)
== END 2022-05-18 17:14 | disposition home or self-care (01) ==
LOC: CHSLAB 17:18
PROVIDERS: PCP Internal Medicine; Visit Provider Radiology Radiation Oncology
DX: C61 Malignant neoplasm of prostate (principal)
CPT/HCPCS: 36415; 84153; 84403; G0103

== ENCOUNTER 2022-09-02 16:14 | Outpatient (CLI) | payer MEDICARE, SELFPAY ==
[2022-09-02 16:34] LABS: Basophils Absolute Auto 0.03 K/mm3 (0.00-0.10); Basophils Percent Auto 0.4 % (0.0-1.0); Eosinophils Absolute Auto 0.04 K/mm3 (0.02-0.50); Eosinophils Percent Auto 0.6 % (1.0-6.0); Hematocrit 32.6 % (37.0-46.0); Hemoglobin 9.6 g/dL (12.4-15.3); Immature Granulocyte Absolute 0.04 K/mm3 (0.00-0.00); Immature Granulocyte Percent A 0.6 % (0.0-0.0); Mean Corpuscular HGB Conc 29.4 g/dL (32.0-36.0); Mean Corpuscular Hemoglobin 28.9 pg (27.0-31.0); Mean Corpuscular Volume 98.2 fL (78.0-102.0); Mean Platelet Volume 9.5 fl (8.7-11.0); Monocytes Absolute Auto 0.47 K/mm3 (0.10-0.90); Monocytes Percent Auto 6.5 % (2.0-11.0); Neutrophils Absolute Auto 5.9 K/mm3 (1.7-7.2); Neutrophils Percent Auto 80.9 % (50.0-70.0); Platelet Count Result 176 K/mm3 (150-420); Red Blood Count 3.32 M/mm3 (4.70-6.10); Red Cell Distribution Width 13.5 % (11.6-14.4); White Blood Count 7.3 K/mm3 (4.8-10.8)
[2022-09-02 17:30] LABS: Alanine Aminotransferase 21 U/L (16-63); Alkaline Phosphatase 68 U/L (46-116); Anion Gap 9 mmol/L (8-16); Aspartate Amino Transferase 24 U/L (15-37); Bilirubin,Total 0.2 mg/dL (0.00-1.00); Blood Urea Nitrogen 49 mg/dL (7-18); Calcium 9.3 mg/dL (8.5-10.1); Carbon Dioxide 25 mmol/L (21-32); Chloride 109 mmol/L (98-108); Estimated Glomerular Filt Rate 32; Glucose 89 mg/dL (70-99); Magnesium 1.6 mg/dL (1.8-2.4); NT Pro B Type Natriuretic Pept 1018 pg/mL (0-125); Osmolality Calculated 308 mOsm/kg (285-295); Potassium 4.9 mmol/L (3.5-5.1); Sodium 143 mmol/L (136-145); Total Protein 6.9 g/dL (6.4-8.2)
== END 2022-09-02 16:15 | disposition home or self-care (01) ==
LOC: CHSLAB 16:16
PROVIDERS: PCP Internal Medicine; Visit Provider Internal Medicine
DX: J44.9 Chronic obstructive pulmonary disease, unspecified (principal); I50.9 Heart failure, unspecified
CPT/HCPCS: 36415; 80053; 83735; 83880; 85025

== ENCOUNTER 2022-09-28 12:57 | Outpatient (CLI) | payer MEDICARE, OTHER, SELFPAY ==
[2022-09-28] MEDS: IRON SUCROSE COMPLEX 500 MG in SODIUM CHLORIDE 0.9% IV 250 ML 62.5 MG IVPB (13:20)
[2022-09-28 13:24] VITALS: BMI 23.1
[2022-09-28 13:26] VITALS: BP 130/67; PULSE 72; RESP 14; TEMP 36.4; O2SAT 97
--- NOTE | 2022-09-28 17:28 | PC.NURSE ---
IV infusion completed. Patient tolerated well. IV removed intact, without difficulty. Slight bruise observed at insertion site. Pressure dressing applied. Patient assisted to front door in wheelchair.
== END 2022-09-28 12:58 | disposition home or self-care (01) ==
LOC: CHSTREATRM 13:01
PROVIDERS: PCP Internal Medicine; Visit Provider Internal Medicine
DX: D50.9 Iron deficiency anemia, unspecified (principal)
CPT/HCPCS: 96365; 96366; J1756; J7050

== ENCOUNTER 2023-11-08 19:16 | Emergency (ER) | payer OTHER, MEDICARE, MEDICAID, SELFPAY ==
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
[2023-11-08 19:16] VITALS: BP 205/82; PULSE 60; RESP 15; TEMP 36.8; O2SAT 97
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
[2023-11-08 20:20] LABS: Basophils Percent Auto 0.4 % (0.2-1.2); Eosinophils Percent Auto 0.8 % (0-4.4); Hematocrit 32.2 % (42.0-52.0); Hemoglobin 9.7 g/dL (14.0-18.0); Immature Granulocyte Absolute 0.04 K/mm3 (0.00-0.031); Immature Granulocyte Percent A 0.8 % (0-0.5); Lymphocytes Absolute Auto 0.83 K/mm3 (0.9-3.2); Lymphocytes Percent Auto 16.2 % (18.3-44.2); Mean Corpuscular HGB Conc 30.1 g/dl (32-36); Mean Corpuscular Hemoglobin 29.5 pg (26-34); Mean Corpuscular Volume 97.9 fl (80-100); Mean Platelet Volume 10.2 fl (7.4-10.4); Monocytes Absolute Auto 0.5 K/mm3 (0.1-0.6); Monocytes Percent Auto 9.4 % (2.6-8.5); Neutrophils Absolute Auto 3.7 K/mm3 (1.3-6.7); Neutrophils Percent Auto 72.4 % (45.5-73.1); Platelet Count Result 176 k/mm3 (150-375); Red Blood Count 3.29 M/mm3 (4.6-6.20); Red Cell Distribution Width 13.9 % (11.5-14.5); White Blood Count 5.1 K/mm3 (4.5-10.0)
[2023-11-08 20:29] LABS: Alanine Aminotransferase 16 U/L (6-50); Albumin Level 3.6 g/dL (3.5-5.1); Alkaline Phosphatase 73 U/L (38-126); Anion Gap 4 mmol/L (8-16); Aspartate Amino Transferase 32 U/L (17-59); Bilirubin,Total 0.3 mg/dL (0.2-1.3); Blood Urea Nitrogen 46 mg/dL (9-20); Calcium 9.5 mg/dL (8.4-10.2); Carbon Dioxide 26 mmol/L (22-30); Chloride 105 mmol/L (98-107); Estimated CRCL calculation 40 ml/min; Estimated Glomerular Filt Rate 46; Glucose 93 mg/dL (65-110); Lipase 54 U/L (23-300); Potassium 4.4 mmol/L (3.4-5.0); Sodium 135 mmol/L (137-145)
[2023-11-08 20:31] LABS: Partial Thromboplastin Time 27.1 SECONDS (22.3-36.8); Prothrombin Time 13.4 Seconds (11.1-14.7)
[2023-11-08] MEDS: HYDROcodone/acetaminophen (*CRX) 5-325 MG TABLET 1 TAB PO ×2 (20:55→23:22)
[2023-11-08 22:16] VITALS: BP 169/85; PULSE 60; RESP 15; O2SAT 97
--- NOTE | 2023-11-08 22:27 | PC.NURSE ---
Pt was educated on purpose of C-Collar use, pt refused C-Collar, states it just makes the pain worse
[2023-11-08] MEDS: ACETAMINOPHEN 325 MG TABLET 650 MG PO (23:22)
[2023-11-09 00:58] VITALS: BP 170/88; PULSE 62; RESP 15; O2SAT 98
[2023-11-09 02:13] VITALS: BP 192/86; PULSE 57; RESP 16; O2SAT 98
[2023-11-09] MEDS: MORPHINE SULFATE (*CRX) 4 MG/ML INJ IV PUSH (02:30)
[2023-11-09] MEDS: ONDANSETRON INJ 4 MG/2 ML VIAL IV PUSH (02:31)
[2023-11-09 02:34] VITALS: BP 180/77; PULSE 55; RESP 16; O2SAT 98
== END 2023-11-09 02:36 | disposition short-term general hospital (02) ==
PROVIDERS: Emergency Provider Student in an Organized Health Care Education/Training Program; PCP Internal Medicine
DX: S22.41XA Multiple fractures of ribs, right side, initial encounter for closed fracture (principal); J43.9 Emphysema, unspecified; N18.9 Chronic kidney disease, unspecified; D64.9 Anemia, unspecified; I25.2 Old myocardial infarction; I73.9 Peripheral vascular disease, unspecified; I50.9 Heart failure, unspecified; Z85.46 Personal history of malignant neoplasm of prostate; Z87.891 Personal history of nicotine dependence; Z98.49 Cataract extraction status, unspecified eye; Z79.82 Long term (current) use of aspirin; Z79.02 Long term (current) use of antithrombotics/antiplatelets; M47.812 Spondylosis without myelopathy or radiculopathy, cervical region; I72.3 Aneurysm of iliac artery; V49.40XA Driver injured in collision with unspecified motor vehicles in traffic accident, initial encounter
CPT/HCPCS: 36415; 70450; 71101; 71260; 72125; 74177; 80053; 83690; 85025; 85610; 85730; 96374; 96375; 99285; A9270; J2270; J2405; Q9967

== ENCOUNTER 2024-02-14 18:11 | Inpatient (IN) | payer MEDICARE, OTHER, MEDICAID, SELFPAY ==
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
--- NOTE | ~2024-02-14 | CT_ITS ---
EXAMINATION: CT chest abdomen pelvis w con DATE: 02/14/2024 19:46 INDICATION: fall, rib and LLQ abd pain . TECHNIQUE: Computed tomography (CT) of the chest, abdomen, and pelvis was performed with 100 mL Omnip aque-350 intravenous contrast. Automated exposure control and iterative reconstruction technique were employed. The dose-length product was 319.72 mGy-cm. COMPARISON: CT chest abdomen pelvis 11/08/2023 FINDINGS: CHEST: No thoracic aortic injury. Moderate atherosclerotic calcification. No mediastinal hematoma. No pericardial effusion. Mild coronary artery calcification. No acute lung injury. Emphysematous change. Granulomatous calcifications. No pleural effusion or pneumothorax. ABDOMEN/PELVIS: No solid organ injury. Stable intra and extrahepatic bile duct dilation. Short segment bowel wall thickening involving the descending colon, with mild surrounding inflammator y stranding. No evidence of perforation. No mesenteric hematoma. Post surgical changes of the stomach . No free fluid or free air. No retroperitoneal hematoma. Stable bilateral common iliac artery aneurysms. Left common iliac stent. Pelvic contents are atraumatic. Prostate seeds. MUSCULOSKELETAL: No acute fracture. Multiple subacute/chronic right-sided rib fractures. No fracture or traumatic malalignment of the thoracic or lumbar spine. IMPRESSION: Segmental wall thickening involving the descending colon, appearance is more consistent with infectio us, inflammatory, or ischemic colitis rather than intramural hematoma from trauma, correlate clinical ly. Otherwise, no acute process detected in the chest, abdomen, or pelvis. Reviewed, dictated and finalized at location K. IMPRESSION: Segmental wall thickening involving the descending colon, appearance is more co nsistent with infectious, inflammatory, or ischemic colitis rather than intramu ral hematoma from trauma, correlate clinically. Otherwise, no acute process detected in the chest, abdomen, or pelvis.
--- NOTE | ~2024-02-14 | CT_ITS ---
EXAMINATION: CT cervical spine wo con DATE: 02/14/2024 19:46 INDICATION: Fall TECHNIQUE: Computed tomography (CT) of the cervical spine was performed without intravenous contrast. Automated exposure control and iterative reconstruction technique were employed. The dose-length pro duct was 319.72 mGy-cm. COMPARISON: 11/08/2023. FINDINGS: Vertebral Body Alignment: Severe reversal of the normal cervical lordosis, centered at C4. Stable mul tilevel grade 1 listheses, likely on a degenerative basis. Craniocervical and atlantoaxial alignment: Moderate degenerative change. Alignment intact. Osseous structures/fracture: No evidence of a lytic or blastic process in the visualized spine. No e vidence of acute fracture. Cervical soft tissues: The paraspinal soft tissues planes are maintained. Degenerative changes: Multilevel severe degenerative disc disease and facet arthropathy. Multilevel s evere bilateral neural foraminal narrowing secondary to degenerative change. Chronic severe central c anal narrowing at C5-6 secondary to degenerative change. IMPRESSION: No acute fracture or traumatic malalignment in the cervical spine. Reviewed, dictated and finalized at location K.
[2024-02-14 18:07] VITALS: BP 113/84; PULSE 79; RESP 20; TEMP 36.6
--- NOTE | 2024-02-14 18:14 | ECG_ITS ---
SEE SCANNED COPY FOR CONFIRMED REPORT MTDD
[2024-02-14 18:17] VITALS: PULSE 77
[2024-02-14 18:26] LABS: Glucose Point of Care 84 mg/dl (65-105)
[2024-02-14 18:32] LABS: Basophils Percent Auto 0.5 % (0.2-1.2); Eosinophils Percent Auto 0.3 % (0-4.4); Hematocrit 35.1 % (42.0-52.0); Hemoglobin 10.6 g/dL (14.0-18.0); Immature Granulocyte Absolute 0.07 K/mm3 (0.00-0.031); Immature Granulocyte Percent A 0.8 % (0-0.5); Lymphocytes Absolute Auto 0.74 K/mm3 (0.9-3.2); Lymphocytes Percent Auto 8.5 % (18.3-44.2); Mean Corpuscular HGB Conc 30.2 g/dl (32-36); Mean Corpuscular Hemoglobin 29.6 pg (26-34); Mean Platelet Volume 10.1 fl (7.4-10.4); Monocytes Absolute Auto 0.7 K/mm3 (0.1-0.6); Monocytes Percent Auto 8.3 % (2.6-8.5); Neutrophils Absolute Auto 7.1 K/mm3 (1.3-6.7); Neutrophils Percent Auto 81.6 % (45.5-73.1); Platelet Count Result 174 k/mm3 (150-375); Red Blood Count 3.58 M/mm3 (4.6-6.20); Red Cell Distribution Width 15.1 % (11.5-14.5); White Blood Count 8.7 K/mm3 (4.5-10.0)
[2024-02-14 18:43] LABS: Alanine Aminotransferase 13 U/L (6-50); Albumin Level 3.9 g/dL (3.5-5.1); Alkaline Phosphatase 88 U/L (38-126); Anion Gap 8 mmol/L (4-12); Aspartate Amino Transferase 24 U/L (17-59); Bilirubin,Total 0.5 mg/dL (0.2-1.3); Blood Urea Nitrogen 42 mg/dL (9-20); Calcium 9.3 mg/dL (8.4-10.2); Carbon Dioxide 21 mmol/L (22-30); Chloride 105 mmol/L (98-107); Estimated CRCL calculation 36 ml/min; Estimated Glomerular Filt Rate 39; Glucose 101 mg/dL (65-110); Potassium 4.2 mmol/L (3.4-5.0); Sodium 134 mmol/L (137-145)
[2024-02-14 18:54] LABS: Troponin I 0.016 ng/mL (0.000-0.034)
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
[2024-02-14 19:16] LABS: Appearance Urine Clear (Clear); Bacteria Urine None Seen /hpf; Bilirubin Urine Negative (Negative); Blood Urine Negative (Negative); Color Urine Yellow (Yellow); Glucose Urine UA Negative (Negative); Ketones Urine Negative (Negative); Leukocyte Esterase Ur Trace LEU/UL (Negative); Nitrate Urine Negative (Negative); Non Pathogenic Casts 0-2; Protein Urine Negative (Negative); RBC Urine 0-2 /hpf (0-2); Specific Grav Ur 1.014 (1.001-1.035); Squamous Epithelial Cell Urine None Seen /hpf (Few); Urobilinogen Urine 0.2 mg/dL (<2.0); WBC Urine 0-5 /hpf (0-3); pH Urine 5.5 (5.0-9.0)
[2024-02-14 19:21] LABS: Lipase 41 U/L (23-300)
[2024-02-14 19:21] LABS: Add Urine Microscopic? YES
[2024-02-14 19:31] LABS: INR 1.1; Prothrombin Time 14.6 Seconds (11.1-14.7)
[2024-02-14 19:32] LABS: Creatine Kinase 108 U/L (55-170)
[2024-02-14 20:42] VITALS: BP 107/69; PULSE 118; RESP 18; O2SAT 93
[2024-02-14 21:29] VITALS: BP 113/71; PULSE 78; RESP 18; O2SAT 93
[2024-02-14 21:36] LABS: Lactic Acid Reflex 1.1 mmol/L (0.7-2.0)
[2024-02-14] MEDS: PANTOPRAZOLE SODIUM IV 40 MG VIAL IV PUSH (21:55)
[2024-02-14] MEDS: SODIUM CHLORIDE 0.9% IV 1,000 ML 999 ML IV CONT (21:55)
[2024-02-14] MEDS: PIPERACILLN/TAZ 3.375GM/NS50ML 3.375 GM/50 ML BAG IVPB (21:56)
[2024-02-14 22:57] LABS: Hematocrit 33.7 % (42.0-52.0); Hemoglobin 10.2 g/dL (14.0-18.0)
[2024-02-14 23:59] VITALS: BMI 21.8
[2024-02-15] VITALS (11 sets, daily range): BP systolic 135–178; BP diastolic 53–70; PULSE 54–84; RESP 16–20; TEMP 36.1–36.7; O2SAT 90–96
--- NOTE | 2024-02-15 00:04 | ADMGEN ---
This patient, Isaac Riddle, was admitted to 3 Med Surg Room 304-02. Patient/family oriented to hospital policies and general routines including ID bracelet, bed and alarms, visiting hours, pain management, procedures, bathroom and other care routines, personal items, smoking policy, room service/diet, and visiting hours. Information on how to activate the Rapid Response Team has been discussed. Patient/Family are encouraged to report perceived risks to care and to ask questions if they do not understand what they are told or what they should do.
[2024-02-15] MEDS: traZODone HCL 50 MG TABLET PO ×2 (03:00→22:15)
[2024-02-15] MEDS: PRAVASTATIN SODIUM 20 MG TABLET PO ×2 (03:00→22:15)
[2024-02-15] MEDS: VERAPAMIL HCL ER 120 MG TABLET PO ×2 (03:00→22:15)
[2024-02-15] MEDS: HYDROcodone/acetaminophen (*CRX) 10-325 MG TABLET 1 TAB PO ×4 (03:01→22:18)
[2024-02-15] MEDS: GABAPENTIN 300 MG CAPSULE PO ×2 (03:01→22:15)
[2024-02-15] MEDS: PIPERACILLIN/TAZ 2.25G/NS 50ML 2.25 GM/50 ML BAG IVPB ×4 (03:12→22:12)
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
[2024-02-15 06:27] LABS: Anion Gap 5 mmol/L (4-12); Blood Urea Nitrogen 37 mg/dL (9-20); Calcium 9.3 mg/dL (8.4-10.2); Carbon Dioxide 24 mmol/L (22-30); Chloride 105 mmol/L (98-107); Estimated CRCL calculation 30 ml/min; Estimated Glomerular Filt Rate 35; Glucose 87 mg/dL (65-110); Potassium 4.3 mmol/L (3.4-5.0); Sodium 134 mmol/L (137-145)
--- NOTE | 2024-02-15 07:20 | PM.IMPN ---
Progress Note: A&P Assessment and Plan (1) Colitis: Code(s): K52.9 - Noninfective gastroenteritis and colitis, unspecified Status: Acute Assessment and Plan: Patient reports being constipated and took [id number] stool softener and milk of magnesia on the .? He then had multiple bowel movements that started out formed but and became more loose with time. CBC without leukocytosis. Patient remains afebrile. - CT chest/abdomen/pelvis 02/14/24: Segmental wall thickening involving the descending colon, appearance is more consistent with infectious, inflammatory, or ischemic colitis rather than intramural hematoma from trauma, correlate clinically. - Zosyn started 02/15/24 will transition to PO in the am - Stool cultures ordered - Monitor vital signs, I&Os, track stool output, watch for bloody stools, neuro status and patient is a fall risk - Monitor serum electrolytes and CBC - Gentle IV fluid resuscitation (2) Rectal bleeding: Code(s): K62.5 - Hemorrhage of anus and rectum Status: Acute Assessment and Plan: Likely related to patients straining on the toilet for several hours which exacerbated his known hemorrhoids and colitis. Bleeding has since resolved. H/H remains stable. - Continue aspirin 81 mg - Holding plavix (3) Fall: Qualifiers: Encounter type: initial encounter Qualified Code(s): W19.XXXA - Unspecified fall, initial encounter Code(s): W19.XXXA - Unspecified fall, initial encounter Status: Acute Assessment and Plan: Patient reports a mechanical fall after losing his balance. He denies LOC and hitting his head. Patient is on Plavix and ASA. - Head CT: No acute intracranial process - C spine CT: No acute fracture or traumatic malalignment in the c spine - PT/OT ordered - Fall precautions (4) Hypertension: Code(s): I10 - Essential (primary) hypertension Status: Acute Assessment and Plan: Chronic. Stable on home medications. - Atenolol 50 mg daily - Monitor (5) COPD (chronic obstructive pulmonary disease): Code(s): J44.9 - Chronic obstructive pulmonary disease, unspecified Status: Acute Assessment and Plan: Chronic. In no acute exacerbation. Time Spent With Patient Time with patient: 25 - 35 minutes Subjective Date/time seen: 02/15/24 07:20 Interval history: 78-year-old male with a past medical history of chronic pain on chronic narcotic therapy, IBS, hemorrhoids, essential hypertension, COPD, coronary artery disease, and CHF among other comorbidities who presented to the ER via EMS from home due to increased confusion, weakness and diarrhea. Patient is pleasant lying in bed. He continues to endorse abdominal pain primarily in the left lower quadrant. He states that his diarrhea has improved and he is no longer passing blood. He is tolerating the liquid diet and will be advanced to a regular diet at this time. He denies chest pain, palpitations, shortness of breath, nausea/vomiting, and changes in bladder. Review of Systems Review of Systems: All systems reviewed & are unremarkable except as noted in HPI and below Exam Narrative: AF HR 54 RR 20 SpO2 92 BP 138/63 General: male in no acute respiratory distress who is nontoxic appearing, lying semi recumbent in bed. HEENT: Normocephalic. Atraumatic. Pupils equal round reactive to light. Extraocular movement intact. No facial asymmetry. Chest: Lungs are clear to auscultation bilaterally. No wheezes or crackles. CV: Heart was regular rate and rhythm. S1/S2. No murmurs, gallops, or rubs. Abd: Abdomen was soft. Tenderness to palpation. Nondistended. Positive bowel sounds. No organomegaly or masses. Ext: No clubbing, cyanosis, or edema. 2+ DP pulses bilaterally. Neuro: Patient is alert and oriented x4. Cranial nerves 2-12 are intact. Speech is clear. Psych: Normal mood and affect. Patient is pleasant and cooperative. Skin: Warm and dry. No rashes note
[2024-02-15 07:38] LABS: Basophils Percent Auto 0.4 % (0.2-1.2); Eosinophils Absolute Auto 0.1 K/mm3 (0-0.3); Hematocrit 32.6 % (42.0-52.0); Immature Granulocyte Absolute 0.03 K/mm3 (0.00-0.031); Immature Granulocyte Percent A 0.4 % (0-0.5); Lymphocytes Absolute Auto 0.78 K/mm3 (0.9-3.2); Lymphocytes Percent Auto 10.9 % (18.3-44.2); Mean Corpuscular HGB Conc 30.7 g/dl (32-36); Mean Corpuscular Hemoglobin 29.8 pg (26-34); Mean Platelet Volume 10.4 fl (7.4-10.4); Monocytes Absolute Auto 0.6 K/mm3 (0.1-0.6); Monocytes Percent Auto 8.4 % (2.6-8.5); Neutrophils Absolute Auto 5.7 K/mm3 (1.3-6.7); Neutrophils Percent Auto 78.9 % (45.5-73.1); Platelet Count Result 158 k/mm3 (150-375); Red Blood Count 3.36 M/mm3 (4.6-6.20); Red Cell Distribution Width 15.4 % (11.5-14.5); White Blood Count 7.2 K/mm3 (4.5-10.0)
[2024-02-15] MEDS: ASPIRIN 81 MG CHEWABLE TABLET PO (08:16)
[2024-02-15] MEDS: SODIUM CHLORIDE 0.9% IV 1,000 ML 100 ML IV CONT ×2 (08:16→22:12)
[2024-02-15] MEDS: CHOLECALCIFEROL 1,000 UNITS TABLET 1000 UNITS PO (08:16)
[2024-02-15] MEDS: predniSONE 5 MG TABLET PO (08:16)
[2024-02-15] MEDS: UMECLIDINIUM/VILANTEROL 62.5-25 MCG ELLIPTA 1 PUFF INHALATION (08:18)
[2024-02-15] MEDS: MONTELUKAST SODIUM 10 MG TABLET PO (08:20)
[2024-02-15] MEDS: atenoloL 50 MG TABLET PO (08:20)
[2024-02-15 11:47] LABS: Hematocrit 32.4 % (42.0-52.0); Hemoglobin 9.8 g/dL (14.0-18.0)
[2024-02-15] MEDS: PANTOPRAZOLE 40 MG TABLET PO (15:34)
[2024-02-15] MEDS: VENLAFAXINE HCL XR 75 MG CAP.ER.24H PO (15:34)
[2024-02-15 16:12] LABS: Hematocrit 34.2 % (42.0-52.0); Hemoglobin 10.3 g/dL (14.0-18.0)
[2024-02-15] MEDS: CALCIUM CARBONATE (TUMS) 500 MG (200 MG ELEMENTAL) PO (17:51)
[2024-02-16] VITALS (7 sets, daily range): BP systolic 156–157; BP diastolic 60–71; PULSE 56–81; RESP 16–18; TEMP 36.6; O2SAT 92–94
[2024-02-16] MEDS: PIPERACILLIN/TAZ 2.25G/NS 50ML 2.25 GM/50 ML BAG IVPB ×2 (03:55→11:10)
[2024-02-16 06:24] LABS: Hematocrit 35.9 % (42.0-52.0); Hemoglobin 10.6 g/dL (14.0-18.0); Mean Corpuscular HGB Conc 29.5 g/dl (32-36); Mean Corpuscular Hemoglobin 29.4 pg (26-34); Mean Corpuscular Volume 99.4 fl (80-100); Mean Platelet Volume 10.3 fl (7.4-10.4); Platelet Count Result 174 k/mm3 (150-375); Red Blood Count 3.61 M/mm3 (4.6-6.20); Red Cell Distribution Width 15.2 % (11.5-14.5); White Blood Count 6.3 K/mm3 (4.5-10.0)
[2024-02-16 06:37] LABS: Anion Gap 6 mmol/L (4-12); Blood Urea Nitrogen 34 mg/dL (9-20); Calcium 9.5 mg/dL (8.4-10.2); Carbon Dioxide 22 mmol/L (22-30); Chloride 109 mmol/L (98-107); Estimated CRCL calculation 27 ml/min; Estimated Glomerular Filt Rate 31; Glucose 85 mg/dL (65-110); Potassium 4.2 mmol/L (3.4-5.0); Sodium 137 mmol/L (137-145)
[2024-02-16 08:21] LABS: Alanine Aminotransferase 13 U/L (6-50); Albumin Level 3.4 g/dL (3.5-5.1); Alkaline Phosphatase 75 U/L (38-126); Aspartate Amino Transferase 38 U/L (17-59); Bilirubin,Total 0.4 mg/dL (0.2-1.3)
[2024-02-16] MEDS: CHOLECALCIFEROL 1,000 UNITS TABLET 1000 UNITS PO (08:36)
[2024-02-16] MEDS: PANTOPRAZOLE 40 MG TABLET PO (08:36)
[2024-02-16] MEDS: predniSONE 5 MG TABLET PO (08:36)
[2024-02-16] MEDS: atenoloL 50 MG TABLET PO (08:36)
[2024-02-16] MEDS: VENLAFAXINE HCL XR 75 MG CAP.ER.24H PO (08:36)
[2024-02-16] MEDS: MONTELUKAST SODIUM 10 MG TABLET PO (08:38)
[2024-02-16] MEDS: ASPIRIN 81 MG CHEWABLE TABLET PO (08:38)
[2024-02-16] MEDS: HYDROcodone/acetaminophen (*CRX) 10-325 MG TABLET 1 TAB PO (08:40)
[2024-02-16] MEDS: UMECLIDINIUM/VILANTEROL 62.5-25 MCG ELLIPTA 1 PUFF INHALATION (09:35)
--- NOTE | 2024-02-16 14:08 | PM.DS ---
DS: Admitting Diagnosis Discharge Date 02/16/2024 Admitting Diagnosis Colitis Rectal bleeding Fall Essential hypertension COPD DS: Discharge Diagnosis Discharge Diagnosis (1) Colitis: Code(s): K52.9 - Noninfective gastroenteritis and colitis, unspecified Status: Acute (2) Rectal bleeding: Code(s): K62.5 - Hemorrhage of anus and rectum Status: Acute (3) Fall: Qualifiers: Encounter type: initial encounter Qualified Code(s): W19.XXXA - Unspecified fall, initial encounter Code(s): W19.XXXA - Unspecified fall, initial encounter Status: Acute (4) Hypertension: Code(s): I10 - Essential (primary) hypertension Status: Acute (5) COPD (chronic obstructive pulmonary disease): Code(s): J44.9 - Chronic obstructive pulmonary disease, unspecified Status: Acute DS: Summary Hospital Course Reason for hospitalization: Colitis Rectal bleeding Fall Essential hypertension COPD Hospital Course: 78-year-old male with a past medical history of chronic pain on chronic narcotic therapy, IBS, hemorrhoids, essential hypertension, COPD, coronary artery disease, and CHF among other comorbidities who presented to the ER via EMS from home due to increased confusion, weakness and diarrhea. Patient reports being constipated and took [id number] stool softener and milk of magnesia on the .? He then had multiple bowel movements that started out formed but and became more loose with time. CBC without leukocytosis. Patient remains afebrile. CT chest/abdomen/pelvis revealed segmental wall thickening involving the descending colon, appearance is more consistent with infectious, inflammatory, or ischemic colitis rather than intramural hematoma from trauma, correlate clinically. He was started on zosyn in the ED and transition to Augmentin at discharge to complete antibiotic course. At time of discharge patient is no longer having diarrhea and is tolerating regular diet. On labs he ws noted to have an elevated Cr. His baseline appears to be around 1.8-2.1, however will obtain a CMP outpatient to monitor. Prior to admission patient reported a mechanical fall. Imaging was unremarkable. Evaluated by PT/OT and no further services were needed. Patient discharged home in stable condition. He will complete his antibiotics as prescribed and follow up with his PCP in 1week. He is to obtain a CMP to monitor kidney function. Status at Discharge Functional status at discharge: independent ambulation Time Spent with Patient Time attestation: Total time spent providing and/or coordinating discharge services: Time spent: Greater than 30 minutes Exam Narrative: AF HR 64 RR 18 SpO2 94 BP 156/71 General: male in no acute respiratory distress who is nontoxic appearing, lying semi recumbent in bed. HEENT: Normocephalic. Atraumatic. Pupils equal round reactive to light. Extraocular movement intact. No facial asymmetry. Chest: Lungs are clear to auscultation bilaterally. No wheezes or crackles. CV: Heart was regular rate and rhythm. S1/S2. No murmurs, gallops, or rubs. Abd: Abdomen was soft. Mild tenderness to palpation. Nondistended. Positive bowel sounds. No organomegaly or masses. Ext: No clubbing, cyanosis, or edema. 2+ DP pulses bilaterally. Neuro: Patient is alert and oriented x4. Cranial nerves 2-12 are intact. Speech is clear. Psych: Normal mood and affect. Patient is pleasant and cooperative. Skin: Warm and dry. No rashes noted. DS: Data Data Completed and Pending Completed studies during hospitalization: Chest/abdomen/pelvis CT Cervical spine CT Head CT Labs on day of discharge: Labs from last 24 hours 02/16/24 02/15/24 05:47 16:05 WBC 6.3 RBC 3.61 L Hgb 10.6 L 10.3 L Hct 35.9 L 34.2 L MCV 99.4 MCH 29.4 MCHC 29.5 L RDW 15.2 H Plt Count 174 MPV 10.3 Sodium 137 Potassium 4.2 Chloride 109 H Carbon Dioxide 22 Anion Gap 6 BUN 34
== END 2024-02-16 15:40 | disposition home or self-care (01) | DRG 392 ==
LOC: ANHED 22:27 → ANH3MEDSUR 22:50
PROVIDERS: Emergency Medicine; Student in an Organized Health Care Education/Training Program; Admitting Provider Internal Medicine; Emergency Provider Physician Assistant; PCP Internal Medicine; Visit Provider Family Medicine
DX: K52.9 Noninfective gastroenteritis and colitis, unspecified (principal); I13.0 Hypertensive heart and chronic kidney disease with heart failure and stage 1 through stage 4 chronic kidney disease, or unspecified chronic kidney disease; K62.5 Hemorrhage of anus and rectum; N18.9 Chronic kidney disease, unspecified; I50.9 Heart failure, unspecified; J44.9 Chronic obstructive pulmonary disease, unspecified; I25.10 Atherosclerotic heart disease of native coronary artery without angina pectoris; G89.29 Other chronic pain; S22.41XD Multiple fractures of ribs, right side, subsequent encounter for fracture with routine healing; Z91.81 History of falling; Z79.82 Long term (current) use of aspirin; Z79.02 Long term (current) use of antithrombotics/antiplatelets; Z87.891 Personal history of nicotine dependence; Z79.899 Other long term (current) drug therapy
CPT/HCPCS: 36415; 70450; 71260; 72125; 74177; 80048; 80053; 80076; 81001; 82550; 82948; 83605; 83690; 84443; 84484; 85014; 85018; 85025; 85027; 85610; 85730; 93005; 94640; 96365; 96366; 96375; 97161; 97165; 99285; A9270; C9113; G0378; J2543; J7030; J7512; Q9967

== ENCOUNTER 2024-07-23 12:01 | Outpatient (CLI) | payer MEDICARE, SELFPAY ==
[2024-07-23 12:18] LABS: Basophils Absolute Auto 0.03 K/mm3 (0.00-0.10); Basophils Percent Auto 0.4 % (0.0-1.0); Eosinophils Absolute Auto 0.09 K/mm3 (0.02-0.50); Eosinophils Percent Auto 1.1 % (1.0-6.0); Hemoglobin 11.5 g/dL (12.4-15.3); Immature Granulocyte Absolute 0.06 K/mm3 (0.00-0.00); Immature Granulocyte Percent A 0.8 % (0.0-0.0); Immature Reticulocyte Fraction 24.2 % (2.0-16.52); Lymphocytes Absolute Auto 1.23 K/mm3 (1.10-4.50); Lymphocytes Percent Auto 15.7 % (18.0-42.0); Mean Corpuscular HGB Conc 30.3 g/dL (32-36); Mean Corpuscular Hemoglobin 28.4 pg (27.0-31.0); Mean Corpuscular Volume 93.8 fL (78.0-102.0); Mean Platelet Volume 9.6 fl (8.7-11.0); Monocytes Absolute Auto 0.66 K/mm3 (0.10-0.90); Monocytes Percent Auto 8.4 % (2.0-11.0); Neutrophils Absolute Auto 5.77 K/mm3 (1.70-7.20); Neutrophils Percent Auto 73.6 % (50.0-70.0); Platelet Count Result 224 K/mm3 (150-420); Red Blood Count 4.05 M/mm3 (4.70-6.10); Red Cell Distribution Width 14.8 % (11.6-14.4); Reticulocyte Hemoglobin Conten 28.7 pg (28.0-35.0); Reticulocyte Percent 1.51 % (0.50-1.50); Reticulocytes Absolute 0.06 M/mm3 (0.02-0.10); White Blood Count 7.8 K/mm3 (4.8-10.8)
[2024-07-23 13:27] LABS: Alanine Aminotransferase 20 U/L (16-63); Albumin Level 3.7 g/dL (3.4-5.0); Alkaline Phosphatase 96 U/L (46-116); Anion Gap 10 mmol/L (4-12); Aspartate Amino Transferase 21 U/L (15-37); Bilirubin,Total 0.3 mg/dL (0.00-1.00); Blood Urea Nitrogen 48 mg/dL (7-18); Carbon Dioxide 27 mmol/L (21-32); Chloride 105 mmol/L (98-108); Estimated Glomerular Filt Rate 29; Ferritin 21 ng/mL (26-388); Free T3 2.62 pg/mL (2.18-3.98); Glucose 96 mg/dL (70-99); Iron 40 ug/dL (65-175); Lactate Dehydrogenase 248 U/L (85-227); NT Pro B Type Natriuretic Pept 1530 pg/mL (0-450); Osmolality Calculated 306 mOsm/kg (285-295); Percent Iron Saturation 10 % (12-57); Potassium 5.2 mmol/L (3.5-5.1); Sodium 142 mmol/L (136-145); Thyroid Stimulating Hormone 1.39 uIU/mL (0.36-3.74)
[2024-07-23 13:31] LABS: CRP < 0.5 mg/dL (0.0-0.9)
[2024-07-26 14:38] LABS: Erythropoietin (EPO) 62.1 mIU/mL (2.6-18.5)
[2024-07-27 13:03] LABS: Soluble Transferrin Receptor 2.46 mg/L (0.76-1.76)
== END 2024-07-23 12:02 | disposition home or self-care (01) ==
PROVIDERS: PCP Internal Medicine; Visit Provider Internal Medicine
DX: D64.9 Anemia, unspecified (principal); I50.9 Heart failure, unspecified; R63.4 Abnormal weight loss
CPT/HCPCS: 36415; 80053; 82668; 82728; 83540; 83550; 83615; 83880; 84238; 84439; 84443; 84481; 85025; 85046; 86140

== ENCOUNTER 2024-07-31 12:56 | Outpatient (CLI) | payer MEDICARE, OTHER, SELFPAY ==
[2024-07-31 13:33] VITALS: BP 142/68; PULSE 96; RESP 18; TEMP 36.6; O2SAT 96
[2024-07-31 13:47] VITALS: BMI 45.8
[2024-07-31] MEDS: IRON SUCROSE COMPLEX IVPB (14:04)
[2024-07-31] MEDS: [UNRECOGNIZED DRUG - OTHER] IVPB (14:04)
--- NOTE | 2024-07-31 16:40 | PC.NURSE ---
Patient's IV infusion completed. Line flushed with normal saline. IV cath removed intact without difficulty. Pressure applied to site until bleeding stopped, then pressure dressing applied. Patient tolerated IV well. Able to ambulate with cane to vehicle.
[2024-08-01 13:40] VITALS: BMI 47.6
== END 2024-07-31 12:57 | disposition home or self-care (01) ==
PROVIDERS: PCP Internal Medicine; Visit Provider Internal Medicine
DX: E61.1 Iron deficiency (principal); I50.9 Heart failure, unspecified
CPT/HCPCS: 96365; 96366; J1756; J7050

== ENCOUNTER 2024-08-02 16:00 | Outpatient (CLI) | payer MEDICARE, OTHER, SELFPAY ==
--- NOTE | 2024-08-02 16:07 | ECHO_ITS ---
Patient Info Name: Isaac Riddle Age: 78 years : 1945 Gender: Male Ht: 71 in Wt: 158 lbs BSA: 1.89 m2 HR: 78 bpm Technical Quality: Good Exam Date: 08/02/2024 5:00 PM Exam Location: Echo Lab Patient Status: Outpatient Admit Date: 08/02/2024 Staff Ordering Physician: Franco Carvalho MD Adult Basic Education Instructor: Mireille Mosquera RDCS Attending Provider: Franco Carvalho MD Exam Type: CA echo doppler color flow Study Info Indications - heart failure Complete two-dimensional, color flow and Doppler transthoracic echocardiogram is performed. Summary 1. Complete two-dimensional, color flow and Doppler transthoracic echocardiogram is performed. 2. Left ventricular chamber dimension is normal. 3. Left ventricular systolic function is normal, estimated at 60-65%. 4. The left ventricular diastolic function is grade I diastolic dysfunction. 5. E/e' 7 is not elevated. 6. Left atrial chamber dimension is mildly enlarged. 7. The mitral valve has mildly calcified annulus. 8. There is mild to moderate tricuspid valve regurgitation. 9. Moderate pulmonary hypertension, estimated pulmonary arterial systolic pressure is 52 mmHg. 10. There is trace pulmonic regurgitation. Left Ventricle E/e' 7 is not elevated. Left ventricular chamber dimension is normal. Left ventricular systolic function is normal, estimated at 60-65%. The left ventricular diastolic function is grade I diastolic dysfunction. Right Ventricle Right ventricular systolic function is normal and with normal TAPSE 2.6 cm. Right ventricular chamber dimension is normal. Left Atria Left atrial chamber dimension is mildly enlarged. Right Atria Right atrial chamber dimension is normal. Aortic Valve The aortic valve is trileaflet. There is no aortic valve stenosis. There is no aortic valve regurgitation. Pulmonic Valve There is trace pulmonic regurgitation. Mitral Valve The mitral valve has mildly calcified annulus. There is no mitral valve stenosis. There is no mitral valve regurgitation. Tricuspid Valve There is mild to moderate tricuspid valve regurgitation. Moderate pulmonary hypertension, estimated pulmonary arterial systolic pressure is 52 mmHg. Pericardium/Pleural There is no pericardial effusion. Inferior Vena Cava Normal inferior vena cava with >50% collapse upon inspiration consistent with normal right atrial pressure, 5 mmHg. Aorta The aortic root size at the sinus of Valsalva is normal. Left Ventricular Outflow Tract Name Value Normal LVOT 2D LVOT Diameter 2.1 cm LVOT Doppler LVOT Peak Velocity 89 cm/s LVOT Peak Gradient 3 mmHg LVOT Mean Gradient 2 mmHg LVOT VTI 26 cm LVOT VTI/AV VTI Ratio 0.9 LVOT Stroke Volume 91 ml Pulmonic Valve Name Value Normal PV Doppler PV Peak Velocity 90 cm/s PV Peak Gradient 3 mmHg Mitral Valve Name Value Normal MV Doppler MV Decel [place] 174 cm/s2 MV PHT 95 ms MV Area (PHT) 2.3 cm2 4.0-5.0 MV Diastolic Function MV E Peak Velocity 57 cm/s MV A Peak Velocity 79 cm/s MV E/A 0.7 MV Decel Time 327 ms Tricuspid Valve Name Value Normal TV Regurgitation Doppler TR Peak Velocity 344 cm/s TR Peak Gradient 24 mmHg Estimated PAP/RSVP RA Pressure 5 mmHg <=5 PA Systolic Pressure 52 mmHg <36 RV Systolic Pressure 52 mmHg <36 Aortic Valve Name Value Normal AV Doppler AV Peak Velocity 108 cm/s AV Peak Gradient 5 mmHg AV Mean Gradient 3 mmHg AV VTI 28 cm AV Area (Cont Eq VTI) 3.3 cm2 >=3.0 AV Area (Cont Eq Nilesh) 2.9 cm2 AV V1/V2 Ratio 0.82 AV Regurgitation 2D LVOT Area 3.5 cm2 Ventricles Name Value Normal LV Dimensions 2D/MM IVS Diastolic Thickness (2D) 1.1 cm 0.6-1.0 LVID Diastole (2D) 4.5 cm 4.2-5.8 LVIW Diastolic Thickness (2D) 1.1 cm 0.6-1.0 LVID Systole (2D) 3.0 cm 2.5-4.0 LVOT Diameter 2.1 cm LV Mass (2D Cubed) 173.94 g 88.00-224.00 LV Mass Index (2D Cubed) 92 g/m2 49-115 Relative Wall Thickness (2D) 0.49 LV Fractional Shortening/Ejection Fraction 2D/MM LV Fractional Shortening (2D) 33 % 25-43 LV EF (2D Teicholz) 61 % 52-72 LV Diastolic Volume (4C MOD) 134 ml LV EF (4C MOD) 75 % LV Diastolic Volume (2C MOD) 118 ml LV EF (2C MOD) 69 % LV Diastolic Volume (BP MOD) 127 ml 62-150 LV Diastolic Volume Index (BP MOD) 67 ml/m2 34-74 LV Systolic Volume (BP MOD) 35 ml 21-61 LV Systolic Volume Index (BP MOD) 18 ml/m2 11-31 LV EF (BP MOD) 73 % 52-72 LV Diastolic Length (4C) 8.7 cm LV Systolic Length (4C) 6.7 cm LV Stroke Volume (4C MOD) 100 ml Atria Name Value Normal LA Dimensions LA Volume (4C A-L) 73 ml LA Volume (BP A-L) 45 ml RA Dimensions RA Area (4C) 17.3 cm2 <=18.0 Report Signatures
[2024-08-02 17:52] LABS: Prostate Specific Antigen < 0.1 ng/mL (< OR = 4.0)
== END 2024-08-02 16:01 | disposition home or self-care (01) ==
PROVIDERS: PCP Internal Medicine; Visit Provider Internal Medicine
DX: Z12.5 Encounter for screening for malignant neoplasm of prostate (principal); I50.9 Heart failure, unspecified; I08.1 Rheumatic disorders of both mitral and tricuspid valves
CPT/HCPCS: 36415; 84153; 93306; G0103

== ENCOUNTER 2024-08-09 13:13 | Outpatient (CLI) | payer MEDICARE, OTHER, SELFPAY ==
[2024-08-09 13:35] VITALS: BP 142/72; PULSE 72; RESP 18; TEMP 36.3; O2SAT 98
[2024-08-09 13:56] VITALS: BMI 46.0
[2024-08-09] MEDS: IRON SUCROSE COMPLEX 250 MG in SODIUM CHLORIDE 0.9% IV 250 ML 125 MG IVPB (13:57)
--- NOTE | 2024-08-09 16:39 | PC.NURSE ---
Patient's IV infusion completed. Patient tolerated well. IV removed, IV cath intact. Pressure applied to site, no active bleeding observed. Patient ambulated to car using cane.
== END 2024-08-09 16:25 ==
PROVIDERS: PCP Internal Medicine; Visit Provider Internal Medicine
DX: E61.1 Iron deficiency (principal)
CPT/HCPCS: 96365; 96366; J1756; J7050

== ENCOUNTER 2025-05-08 11:03 | Outpatient (CLI) | payer MEDICARE, SELFPAY ==
[2025-05-08 11:23] LABS: Hematocrit 38.9 % (37.0-46.0); Hemoglobin 11.9 g/dL (12.4-15.3); Immature Granulocyte Percent A 0.5 % (0.0-0.0); Lymphocytes Absolute Auto 1.31 K/mm3 (1.10-4.50); Mean Corpuscular HGB Conc 30.6 g/dL (32-36); Mean Corpuscular Hemoglobin 29.7 pg (27.0-31.0); Mean Corpuscular Volume 97.0 fL (78.0-102.0); Nucleated Red Blood Cells Absolute Auto 0.00 K/mm3 (0.00-0.00); Nucleated Red Blood Cells Perc 0.0 % (0-0.0); Platelet Count Result 181 K/mm3 (150-420); Red Blood Count 4.01 M/mm3 (4.70-6.10); White Blood Count 6.6 K/mm3 (4.8-10.8)
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
--- OUTSIDE RECORDS SUMMARY | 2025-05-08 11:40 | XMS_ITS | Clinical Summary ---
Author Organization [facility] Address [address] [place] [address] Care Team Providers Care Enamel Dipper Name Role Phone Miles Reyes MD PhD Unavailable [phone] Alejandro Aldana MD Unavailable + [phone] Gen Mcallister MD Unavailable [phone] Franco Carvalho MD Primary Care Provider [phone] Jacobo Marcos MD Unavailable [phone] Analia Becker MD Unavailable [phone] Allergies Active Allergy Reactions Criticality Noted Date Comments Ciprofloxacin Itching Low Erythromycin Other (See comments) Reaction: Diarrhea, , Lisinopril Swelling Medium 04/29/2021 Magnesium Salicylate Diarrhea Low 07/24/2013 Meperidine Other (See comments) 07/24/2013 Rapid heartbeat Reaction: Diff breathing, , Tetracycline Diarrhea Low 07/24/2013 Medications clopidogrel (PLAVIX) 75 mg tablet take 1 tablet (75MG) by oral route every day [address] (PROTONIX) 40 mg EC tablet take 1 tablet (40MG) by oral route every day 0 2 Active aspirin (ASPIR-81) 81 mg tablet take 1 tablet (81MG) by oral route every day 0 2 Active albuterol HFA (PROAIR HFA) 90 mcg/actuation inhaler inhale 2 puff by inhalation route every 4 - 6 hours as needed 0 2 Active atenolol (TENORMIN) 50 mg tablet take 1 tablet (50MG) by oral route every day 0 2 Active Additional Information Patient taking differently:50 mgoral Daily, Indications: takes at noon, Informant: Self, Reported on 12/19/2018 acetaminophen (TYLENOL EXTRA STRENGTH) 500 mg tablet take 2 tablet (1000MG) by oral route TWICE A DAY 360 3 1 Active Additional Information Patient taking differently:500 mgoral Daily, Informant: Self, Reported on 12/19/2018 cholecalcifero l (VITAMIN D-3) 1,000 unit tablet take 1 by Oral route every day 90 3 1 Active tuberculin-all ergy syringes (BD TUBERCULIN SYRINGE) 1 mL 26 gauge x 3/8 syringe INJECT BY INTRAMUSCULAR ROUTE EVERY MONTH 3 Syringe 2 6 Active cyanocobalamin (Vitamin B-12) 1,000 mcg/mL injection INJECT 1 MILLILITER (1000MCG) BY INTRAMUSCULAR ROUTE EVERY MONTH 3 vial 1 1 Active predniSONE (DELTASONE) 10 mg tablet take 1 tablet by oral route every day when needed 10 0 6 Active Additional Information Patient taking differently: 5 mg, Reported on 03/07/2018 venlafaxine (EFFEXOR) 75 mg tablet TAKE ONE TABLET BY MOUTH TWICE A DAY WITH FOOD 180 1 1 Active Additional Information Patient taking differently:75 mgoral Nightly, Reported on 12/19/2018 montelukast (SINGULAIR) 10 mg tablet Take 10 mg by mouth every morning Active spironolactone (ALDACTONE) 25 mg tablet Take 25 mg by mouth daily Active pravastatin (PRAVACHOL) 20 mg tablet Take 20 mg by mouth nightly Active verapamil SR (CALAN SR) 120 mg CR tablet Take 120 mg by mouth nightly Active HYDROcodone-ac etaminophen (NORCO) 7.5-325 mg per tabletIndicati ons:Pain Take 1 tablet by mouth every 8 (eight) hours as needed for pain Active tiotropium-olo daterol (STIOLTO RESPIMAT) 2.5-2.5 mcg/actuation inhaler Inhale 2 puffs daily Active fluticasone propionate (FLONASE) 50 mcg/actuation nasal spray ADMINISTER 1 SPRAY INTO EACH NOSTRIL 2 TIMES A DAY. 48 mL 1 Active Active Problems Problem Noted Date Diagnosed Date History of prostate cancer 07/21/2021 Postnasal drip 07/21/2021 Chronic cough 07/21/2021 Weight loss 05/21/2021 History of empyema of pleura 05/21/2021 Fatigue 05/21/2021 Pulmonary hypertension 05/21/2021 Hyponatremia 05/08/2021 Bacteremia due to Pseudomonas 05/02/2021 Sepsis due to Pseudomonas species 05/01/2021 Multiple pulmonary emboli 04/29/2021 Asymptomatic bilateral carotid artery stenosis 0 04/15/2020 Iron deficiency anemia 01/09/2019 Overview (01/09/2019): Added automatically from request for surgery [id number] Prostate cancer 03/07/2018 Cancer Staging:Clinical stage from 03/07/2018:Stage IIA(T2b, N0, M0, PSA: Less than 10, Daniel 7) - Signed by Miles Reyes MD on 03/07/2018 Overview (03/07/2018): Evaluated by Dr. Aldana, radiation therapy by Dr. 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 He continues to do well status post definitive therapy and is continuing on androgen deprivation per Dr. Aldana. He has no clinical or biochemical evidence of disease progression at this time. PLAN: Return to clinic in 6 months with a repeat PSA at that time. Continue close follow up with his other healthcare providers. 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 (12/23/2016): Chandrakant's syndrome or reactive arthritis Benign essential hypertension 02/02/2014 Overview (12/23/2016): Benign essential HTN Chronic obstructive pulmonary disease 02/02/2014 Overview (12/24/2016): COPD (chronic obstructive pulmonary disease) Peptic ulcer 02/02/2014 Overview (12/24/2016): Peptic ulcer disease 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 Overview (12/24/2016): Hyperlipemia, mixed Cigarette nicotine dependence in remission 02/02 Overview (12/24/2016): Tobacco abuse Anxiety 02/02/2014 Overview (12/24/2016): Anxiety Iron deficiency 09/04/2012 Overview (12/24/2016): Iron deficiency Pleural effusion Immunizations Immunization Administration Dates Next Due Influenza, Quadrivalent, Hig h Dose, Preservative Free, Intrr 05/30/2020 Influenza, Split 07/11/2013 Influenza, Trivalent, High D ose, Split, Preservative Free, Intramuscular 05/24/2019,06/23/2018,06/01/2018,06/29 Influenza, Trivalent, IM (MDV) 06/30/2015 Influenza, Unspecified 06/23/2016 Pneumococcal Conjugate PCV 13 10/07/2014 Pneumococcal Polysaccharide PPV23 11/17/2018,06/2016,07/11/2013 Tdap 02/26/2009 ZOSTER LIVE 09/17/2011 Surgical History Surgery Date Site/Laterality Comments APPENDECTOMY Appendectomy HERNIA REPAIR Hernia repair OTHER SURGICAL HISTORY 09/19/1969 - 09/18/1970 pylorplasty-vagotomy OTHER SURGICAL HISTORY HHV repair HEMORRHOID SURGERY hemorrhoidectomy OTHER SURGICAL HISTORY 09/19/2007 - 09/18/2008 leg stents COLONOSCOPY 07/16/2010 CT CHEST TUBE INSERTION LEFT 05/02/2021 N/A Medical History Medical History Date Comments Gastric ulcer stomach ulcer Hx Other Medical Colitis Anxiety disorder Anxiety Hypertension Hypertension Chronic obstructive pulmonary disease (HCC) COPD Osteoarthritis Osteoarthritis Depression Depression Rheumatoid arthritis (HCC) Rheum atoid arthritis Hx Other Medical 1975 By-pass @ stoma Hx Other Medical 1977 Hemrrhoids Family History Medical History Relation Name Comments Cancer Other 1 Family history of Cancer; Heart disease Other 2 Family history of Heart disease; Hypertension Other 3 Family history of Hypertension; Relation Name Status Comments Other 1 Other 2 Other 3 Social History Tobacco Use Types Packs/Day Years Used Date Smoking Tobacco: Former Cigarettes 1 5 Smokeless Tobacco: Never Tobacco Cessation:Counseling Given: Not Answered Alcohol Use Standard Drinks/Week Comments No 0 (1 standard drink = 0.6 oz pur e alcohol) AUDIT-C Answer Date Recorded Q1: How often do you have a drink containing alc ohol? 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 Gender Identity Not on file Sexual Orientation Not on file Obstetrics History Last Filed Vital Signs Vital Sign Reading Time Taken Comments Blood Pressure 122/62 07/16/2022 11:45 AM CDT Pulse 71 07/16/2022 11:45 AM CDT Temperature 36.2 C (97.2 F) 07/16/2022 11:45 AM CDT Respiratory Rate 20 07/16/2022 11:45 AM CDT Oxygen Saturation 99% 07/16/2022 11:45 AM CDT Inhaled Oxygen Concentration - - Weight 72.6 kg (160 lb) 07/16/2022 11:45 AM CDT Height 182.9 cm (6' 0.01) 05/21/2021 1:42 PM CD T Body Mass Index 21.7 05/21/2021 1:42 PM CDT Plan of Treatment Health Maintenance Due Date Last Done Comments Depression Screening 1945 Hepatitis C Screening 1945 Hepatitis B Screening 1965 Zoster Vaccine (2 of 3) 11/12/2011 09/17/2011 Well Visit 65+ 2012 Fall Risk Assessment 05/10/2022 05/10/2021 Influenza Vaccine (#1) 2025 , 05/30/2020, 05/29/2019, Additional history exists DTaP/Tdap/Td Vaccine (3 - Td or Tdap) 02/09/2031 02/09/2021, 02/26/2009 Pneumococcal vaccine 65+ Completed 019, 01/27/2016, 10/07/2014, Additional history exists Colon Cancer Screening-CT Colonography Discontinued 10/26/2019, 07/16/2010 Colon Cancer Screening-Colonoscopy Discontinued 10/26/2019, 07/16/2010 Colon Cancer Screening-DNA Stool Discontinued 10/26/19 20, 07/16/2010 Colon Cancer Screening-FIT Discontinued 10/26, 10/11/2012, 07/16/2010 Colon Cancer Screening-FOBT Discontinued 03/2020, 10/11/2012, 07/16/2010 Colon Cancer Screening-Sigmoidoscopy Discontinued 10/26/2019, 07/16/2010 Colorectal Cancer Screening Discontinued Abdominal Aortic Aneurysm (A AA) Screen Completed 11/09/2023 Medical Devices Implanted Type Area Glassware Finisher Device Identifier Shelf Expiration Date Model / Serial / Lot [employer] [id number] Supera 5.5mm 6fr 150mm 120cm Otw Self Expandable Closed End Braid - [id number] Implanted:Qty: 1 on 12/19/2018 by Gen Mcallister MD at [facility] [employer] 10/19/2019 [id number]-55-150- 12 0-P6 / / [id number] [employer] [id number] Supera 5.5mm 6fr 120mm 120cm Otw Self Expandable Closed End Latex Free - [id number] Implanted:Qty: 1 on 12/19/2018 by Gen Mcallister MD at [facility] [employer] 08/18/2019 S-55-120- 12 0-P6 / / [id number] [employer] [id number] Supera 5.5mm 6fr 80mm 120cm Mimetic Design Flexible Peripheral - [id number] Implanted:Qty: 1 on 12/19/2018 by Gen Mcallister MD at [facility] [employer] 04/18/2020 S-55-080- 12 0-P6 / / [id number] [employer] [id number] Supera 5.5mm 6fr 40mm 120cm Otw Self Expandable Radiopaque Closed Latex Free - [id number] Implanted:Qty: 1 on 12/19/2018 by Gen Mcallister MD at [facility] 05/19/2020 S-[id number]- 12 0-P6 / / [id number] Procedures Procedure Name Priority Date/Time Associated Diagnosis Comments COLONOSCOPY 10/26/2019 7:28 AM ORIENTATION AND MOBILITY INSTRUCTOR from Last 3 Months or Most Recently Relevant to Health Maintenance Results * COLONOSCOPY (10/26/2019 7:28 AM ORIENTATION AND MOBILITY INSTRUCTOR) Anatomical Region Laterality Modality Other Narrative Procedure Note Jadon Bhatti MD - 10/26/2019 7:28 AM CST [facility] Patient Name: Isaac Kovacs Procedure Date: 10/26/2019 7:28 AM Date of : 1945 Admit Type: Outpatient Age: 74 Gender: Male Attending MD: Jadon Bhatti M.D. Room: [facility] ENDOSCOPY ROOM 2 Note Status: Finalized Patient Profile: Refer to note in patient chart for documentation of history and physical. Procedure: Colonoscopy Indications: High risk colon cancer surveillance: Personalhistory of colonic polyps, Last colonoscopy: June 2010 Referring MD: Franco Carvalho M.D. Providers: Jadon Bhatti M.D. Impression: - Hemorrhoids found on perianal exam. - The entire examined colon is normal. - No specimens collected. Recommendation: - Discharge patient to home. - Resume previous diet. - Continue present medications. - Repeat colonoscopy in 5 years for surveillance. - Return to primary care physician as previously scheduled. Medicines: Propofol per Anesthesia Complications: No immediate complications. Estimated Blood Loss: Estimated blood loss: none. Procedure: Pre-Anesthesia Assessment: - This assessment was completed [Time of Assessment] prior to the administration of sedation. The benefits, risks and alternatives of theprocedure and sedation were discussed and informed consent was obtained. All questions were answered. Please referto the signed informed consent document in the medical record. The scope was passed under direct vision.The Colonoscope [id number] was introducedthrough the anus and advanced to the the cecum, identifiedby appendiceal orifice and ileocecal valve. The bowel preparation used was Miralax. Bowel prep was administered using a single dose. The colonoscopywas performed without difficulty. The patient toleratedthe procedure well. The quality of the bowel preparation was adequate to identify polyps 6 mm and larger insize. Findings: Hemorrhoids were found on perianal exam. The colon (entire examined portion) appeared normal. Electronically signed by Jadon Bhatti M.D. Jadon Bhatti M.D. 10/26/2019 8:30:22 AM Number of Addenda: 0 Note Initiated On: 10/26/2019 7:28 AM Procedure Code(s): --- Professional --- G0105, Colorectal cancer screening; colonoscopy on individual at high risk Diagnosis Code(s): --- Professional --- K64.9, Unspecified hemorrhoids Z86.010, Personal history of colonic polyps CPT copyright 2017 [employer]. All rights reserved. The codes documented in this report are preliminary and upon loom winder tender reviewmay be revised to meet current compliance requirements. Recognized by the [employer] for promoting quality in endoscopy Jadon Bhatti MD ENDOSCOPY PROCEDURES Final Re sult from Last 3 Months or Most Recently Relevant to Health Maintenance Insurance MEDICARE [facility] MEDICARE MEDICARE [facility] MEDICARE [facility] MEDICARE Advance Directives For more information, please contact: [phone] * Full Code (Latest Code Status on File) Date Activated Date Inactivated Comments 05/01/2021 8:04 PM 05/10/2021 9:57 PM * Full Code Date Activated Date Inactivated Comments 04/29/2021 11:18 PM 05/01/2021 8:04 PM * Full Code Date Activated Date Inactivated Comments 10/26/2019 7:38 AM 10/26/2019 1:22 PM * Full Code Date Activated Date Inactivated Comments 10/26/2019 7:38 AM 10/26/2019 7:38 AM * Full Code Date Activated Date Inactivated Comments 12/19/2018 3:36 PM 12/19/2018 10:23 PM Care Teams Enamel Dipper Relationship Specialty Start Date End Date Franco Carvalho MD [facility] [address] [address] PCP - General Internal Medicine 04/17/19 Miles Reyes MD PhD [address] [place] [address] [place] [address] Radiation Oncologist Radiation Oncology 03/07/18 Alejandro Aldana MD [facility] [address] [place] [address] Referring Physician Urology 03/07/18 Gen Mcallister MD [address] [place] [address] [address] [place] [address] Consulting Physician Cardiology 12/19/18 Jacobo Marcos MD [address] [place] [address] [address] [place] [address] Consulting Physician Urology 11/08/19 Analia Becker MD [address] [place] [address] [address] [place] [address] Consulting Physician Pulmonary Disease 05/09/21
--- OUTSIDE RECORDS SUMMARY | 2025-05-08 11:40 | XMS_ITS | Clinical Summary ---
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 Gender Identity Not on file Sexual Orientation Not on file Plan of Treatment Health Maintenance Due Date Last Done Comments Hepatitis C 1965 DTaP, Tdap and Td Vaccines ( 1 - Tdap) 1966 Pneumococcal Vaccine: 50+ Ye ars (1 of 1 - PCV) 1997 Zoster Vaccines (1 of 2) 1997 Annual Medicare Wellness Visit 2012 RSV Immunization or 60+ Years (1 - 1-dose 75+ series) 2022 COVID-19 Vaccine ( - 2023-2 5 season) 2024 Meningococcal B Vaccine Aged Out No l onger eligible based on patient's age to complete this topic Meningococcal Vaccine Aged Out No gianna nadeem eligible based on patient's age to complete this topic RSV Immunizations Under 20 Months Aged Out No longer eligible based on patient's age to complete this topic Insurance [facility] MEDICARE Care Teams Ice Skating Instructor Relationship Specialty Start Date End Date Franco Carvalho MD [address] [place] [address] PCP - General INTERNAL MEDICINE 09/02/16
--- OUTSIDE RECORDS SUMMARY | 2025-05-08 11:41 | XMS_ITS ---
Author Organization [facility] Address [address] [place] [address] Care Team Providers Care Linux Kernel Developer Name Role Phone Miles Reyes MD PhD Unavailable + [phone] Alejandro Aldana MD Unavailable + [phone] Gen Mcallister MD Unavailable [phone] Franco Carvalho MD Primary Care Provider [phone] Jacobo Marcos MD Unavailable [phone] Analia Becker MD Unavailable [phone] Active Problems Problem Noted Date Diagnosed Date [...] (01/09/2019): Added automatically from request for surgery [id number] Prostate cancer 03/07/2018 Cancer Staging:Clinical stage from 03/07/2018:Stage IIA(T2b, N0, M0, PSA: Less than 10, [place] 7) - Signed by Miles Reyes MD on 03/07/2018 Overview (03/07/2018): Evaluated by Dr. Aldana, radiation therapy by Dr. 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 Past Treatment and Therapy Plans No past plan information found. Lifetime Dose Tracking * Chemical Lifetime Dose Automatic Entry Manual Entr y DLP 558 mGycm 558 mGycm 0 mGycm
[2025-05-08 12:05] LABS: Hemoglobin A1C 5.9 % (<5.7)
[2025-05-08 12:25] LABS: Alanine Aminotransferase 15 U/L (6-50); Albumin Level 4.4 g/dL (3.5-5.1); Alkaline Phosphatase 66 U/L (38-126); Anion Gap 8 mmol/L (4-12); Aspartate Amino Transferase 28 U/L (17-59); Bilirubin,Total 0.5 mg/dL (0.2-1.3); Blood Urea Nitrogen 47 mg/dL (9-20); Calcium 10.8 mg/dL (8.4-10.2); Carbon Dioxide 28 mmol/L (22-30); Chloride 104 mmol/L (98-107); Estimated Glomerular Filt Rate 37; Glucose 91 mg/dL (65-110); Magnesium 2.4 mg/dL (1.6-2.3); Osmolality Calculated 302 mOsm/kg (285-295); Potassium 4.7 mmol/L (3.4-5.0); Sodium 140 mmol/L (137-145); Total Protein 6.7 g/dL (6.3-8.2)
[2025-05-08 13:04] LABS: Prostate Specific Antigen < 0.1 ng/mL (< OR = 4.0); Thyroid Stimulating Hormone Reflex 1.890 uIU/mL (0.465-4.68)
[2025-05-08 13:39] LABS: Vitamin B12 > 1000.0 pg/mL (239-931)
== END 2025-05-08 11:04 | disposition home or self-care (01) ==
PROVIDERS: PCP Family Medicine; Visit Provider Family Medicine
DX: E03.9 Hypothyroidism, unspecified (principal); N17.9 Acute kidney failure, unspecified; N18.9 Chronic kidney disease, unspecified; E53.8 Deficiency of other specified B group vitamins; E11.9 Type 2 diabetes mellitus without complications; R35.1 Nocturia; Z12.5 Encounter for screening for malignant neoplasm of prostate
CPT/HCPCS: 36415; 80053; 82607; 82746; 83036; 83735; 84153; 84443; 85025; G0103

== ENCOUNTER 2025-06-17 14:03 | Outpatient (CLI) | payer MEDICARE, SELFPAY ==
--- OUTSIDE RECORDS SUMMARY | 2015-03-12 04:15 | XMS_ITS | Continuity of Care Document ---
[facility] Address [address] [facility] [address] [place] [address] Phone Care Team Providers Care Automobile Sales Representative Name Role Phone Sandoval An MD, MD [...] Diagnoses Date Provider Providers Copied on Encounter [facility], [address], [place], [place], [address], [place] tel:[phone] SEC Gordo PR Professional 2 wk p/o YAG PC OD (chief complaint) Post op follow up 5 Juve Nick. [address] [facility], [address], [place], [address], [place]. tel:[phone] Referring Provider: Malu Daugherty MD, [address], [place], [address]. tel:[phone] [facility], [address], [place], [place], [address], [place] tel:[phone] SEC Gordo CHACON Professional Procedure (chief complaint) Pseudophakia After-catara ct, obscuring vision Alexis- 0-201 5 Juve Nick. [address], [address], [place], [address], [place]. tel:[phone] Referring Provider: Malu Daugherty MD, [address] [employer], [place], [address]. tel:[phone] Office/outpa tient Visit, Est [facility], [address], [place], [place], [address], [place] tel:[phone] SEC Gordo CHACON Professional decreased vision (chief complaint) After-catara ct, obscuring vision Dec- 5-201 5 Juve Nick. [address], [address], [place], [place], [facility], [place]. tel:[phone] Referring Provider: Malu Daugherty MD, [address] [employer], [place], [address]. tel:[phone] [facility], [address], [place], [place], [address], [place] tel:[phone] SEC Gordo CHACON Professional YAG PC OD (chief complaint) Post op follow up 4-201 5 Alex Ghotra. [address] [facility], [address], [place], [place], [address], [place]. tel:[phone] Referring Provider: Malu Daugherty MD, [address] [employer], [place], [address]. tel:[phone] [facility], [address], [place], [place], [address], [place] tel:[phone] SEC Gordo CHACON Professional F/u exam, postop (chief complaint) Post op follow up 0-201 4 Alex Ghotra. [address], [address] [place], [address], [place]. tel:[phone] Referring Provider: Malu Daugherty MD, [address] [place], [address]. tel:[phone] [facility], [address] [place] [address] [address], [place], [place], [address], tel:[phone] SEC Gordo CHACON Professional Post Op visit due to trouble (chief complaint) Post op follow up Oct-2 9-201 4 Wankno Brandin. [address] [employer] [place], [facility] [address], [place], [place], [address], [place]. tel:[phone] Referring Provider: Malu Daugherty MD, [address] [employer], [place], [address]. tel:[phone] [facility], [address] [place] [address] [address], [place], [place], [address], [place] tel:[phone] SEC Gordo CHACON Professional 2 WK PO PHACO OD (chief complaint) Post op follow up Oct-2 2-201 4 Josekno Ghotra. [address] [facility] [place], [facility], [place], [address], [place]. tel:[phone] Referring Provider: Malu Daugherty MD, [address] [employer], [place], [address]. tel:[phone] [facility], [address] [place] [address] [address], [place], [place], [address], [place] tel:[phone] SEC Gordo CHACON Professional F/u exam, postop (chief complaint) Post op follow up Oct-0 8-201 4 Alex Ghotra. [address] [facility], [facility] A, [place], [place], [address], [place]. tel:[phone] Referring Provider: aMlu Daugherty MD, [address] [place], [address]. tel:[phone] [facility], [address] [place] [address] [address], [place], [place], [address], [place] tel:[phone] [facility] No Information Jun-0 4 Daisy Alexander. [address], [address], [place], [place], [address], [place]. tel:[phone] Referring Provider: Malu Daugherty MD, [address] [employer], [place], [address]. tel:[phone] [facility], [address] [place] [address] [address], [place], [place], [address], [place] tel:[phone] SEC Vanessa Millan No Information Jun-0 6 4 Judy Alexander. [facility], [address], [place], [place], [address], [place]. tel:[phone] Referring Provider: Malu Daugherty MD, [address] [employer], [place], [address]. tel:[phone] [facility], [address] [place] [place] [address] [address], [place], [place], [address], [place] tel:[phone] SEC Gordo CHACON Professional 2 week post op (chief complaint) Post op follow up Jun-0 4 Wankum Brandin. [address] [facility], [facility], [place], [address], [place]. tel:[phone] Referring Provider: Malu Daugherty MD, [address] [employer], [place], [address]. tel:[phone] [facility], [address] [place] [address] [address], [place], [place], [address], [place] tel:[phone] SEC Gordo CHACON Professional 1 day P/O (phaco w/IOL) (chief complaint) Post op follow up 4 Wankum Brandin. [address] [facility], [facility] A, [place], [place], [address], [place]. tel:[phone] Referring Provider: Malu Daugherty MD, [address] [place], [address]. tel:[phone] [facility], [address] [place] [address] [address], [place], [place], [address], tel:[phone] [facility] No Information 4 Judy Alexander. [address] [place], [place] [address], [address], [place], [place], [address], [place]. tel:[phone] Referring Provider: Malu Daugherty MD, [address], [place], [address]. tel:[phone] [facility], [address] [place] [address] [address], [place], [place], [address], [place] tel:[phone] SEC Vanessa Millan No Information 4 Daisy Alexander. [facility] [address], [address], [place], [place], [address], [place]. tel:[phone] Referring Provider: Malu Daugherty MD, [address], [place], [address]. tel:[phone] [facility], [address] [place] [address] [address], [place], [place], [address], [place] tel:[phone] SEC [place] PR Professional Blurry vision (chief complaint) Senile nuclear cataract 4 Daisy Alexander. [facility] [address], [address], [place], [place], [address], [place]. tel:[phone] Referring Provider: Malu Daugherty MD, [address], [place], [address]. tel:[phone] [facility], [address] [place] [address] [address], [place], [place], [address], [place] tel:[phone] SEC Gordo PR Professional No Information 0-201 4 Wankno Ghotra. [address], [address], [place], [place], [address], [place]. tel:[phone] Family History Family Member Type Diagnosis Age At Onset Mother Problem (finding) Corneal disease Payers Payer name Insurance type Covered alliance party ID Authoriza tion(s) No Information Social [...]
--- NOTE | 2025-06-17 14:09 | ECG_ITS ---
Test Date: 2025-06-17 14:29:22 Measurements Intervals [place] Rate: 75 P: 73 [place]: 165 QRS: 70 QRSD: 104 T: 73 QT: 389 QTc: 435 Interpretive Statements SINUS RHYTHM WITH SINUS ARRHYTHMIA No previous ECG available for comparison Electronically Signed On 06-17-2025 15:06:10 CDT by Clair Gamble M.D.
--- OUTSIDE RECORDS SUMMARY | 2025-06-17 14:39 | XMS_ITS | Clinical Summary ---
Author Organization [facility] Address [address] [place] [address] Care Team Providers Care Manager Energy Name Role Phone Franco Carvalho MD Primary Care Provider [phone] Source Comments [facility],non-owned Affiliates and Associated Physician Practices is amultiple site organization consisting of ambulatory clinics and hospital sitesin [place], [place], [place] and [place]. This disclosure is being madepursuant to the Care Everywhere program and may not contain all information available regarding this patient. Last updated 18.[facility] Allergies Active Allergy Reactions Criticality Noted Date [...] tablet by mouth at bedtime Active Tiotropium [place]-Olodat marcella (Stiolto Respimat) 2.5-2.5 MCG/ACT Inhale 2 [...] care, and heating? Not very hard 11/10/2023 [facility] [place] of Occupat ional Health - Occupational Stress [...] place to sleep or slept in a correction (including now)? No 11/10/2023 Sex and Gender [...] Comments Blood Pressure 145/90 11/10/2023 4:05 PM STRUCTURAL DRAFTSMAN Pulse 79 11/10/2023 4:05 PM STRUCTURAL DRAFTSMAN Temperature 36.7 C (98.1 F) 11/10/2023 8:00 AM STRUCTURAL DRAFTSMAN Respiratory Rate 17 11/10/2023 4:05 PM STRUCTURAL DRAFTSMAN Oxygen Saturation 98% 11/10/2023 4:05 PM STRUCTURAL DRAFTSMAN Inhaled Oxygen Concentration - - Weight 74 kg (163 lb 2.3 oz) 11/10/2023 4:00 AM STRUCTURAL DRAFTSMAN Height 180.3 cm (5' 10.98) 11/09/2023 9:[address] Body Mass Index 22.76 11/09/2023 9:24 AM STRUCTURAL DRAFTSMAN Plan of Treatment Health Maintenance Due Date Last Done Comments MEDICARE AWV 12 MONTHS 1945 DTAP/TDAP/TD VACCINES (1 - Tdap) 1966 PNEUMOCOCCAL VACCINE 50+ (1 of 1 - PCV) 1997 ZOSTER VACCINE (1 of 2) 1997 Respiratory Syncytial Virus (RSV) Vaccine Pt: or over 60 yrs (1 - 1-dose 75+ series) 2022 DEPRESSION SCREENING 09/19/2024 COVID-19 VACCINE (2024- season) 2025 11/09/2022, 02/04/2021, 01/07/2021 INFLUENZA VACCINE (#1) 2025 , 07/01/2022, 06/28/2022, [...] HEPATITIS C ANTIBODY Routine 07/24/2013 3:19 PM STRUCTURAL DRAFTSMAN Polyarthritis from Last 3 Months or Most Recently Relevant to Health Maintenance Results * HEPATITIS C ANTIBODY (07/24/2013 3:19 PM STRUCTURAL DRAFTSMAN) Hepatitis C Antibody <0.1 0.0 - 0.9 s/co ratio [facility] INSURANCE BILL Comment: Negative: < 0.8 Indeterminate 0.8 - 0.9 Positive: > 0.9 . In order to reduce the incidence of a false positive result, the CDC recommends that all s/co ratios between 1.0 and 10.9 be confirmed by a more specific supplemental or PCR testing. [facility] offers HCV Ab w/Reflex to Verification test #[id number]. Blood specimen (specimen) BLOOD SPECIMEN / Unknown 07/24/2013 3:19 PM STRUCTURAL DRAFTSMAN 07/24/2013 5:38 PM STRUCTURAL DRAFTSMAN Narrative Resulting Agency Comment [facility] [address] [facility] [id number] Isaac Redding MD LAB - CHEMISTRY ORDERABLES Alisha chandra Result [facility] INSURANCE BILL [address] [place] [address] from Last 3 Months or Most Recently Relevant to Health Maintenance Insurance MEDICARE [facility] MEDICARE [facility] TPL THIRD DEMOCRAT LIABILITY MEDICARE [facility] OR MEDICAID - [facility] PLAN [facility] Advance Directives * Full Code (Latest Code Status on File) Date Activated Date Inactivated Comments 11/09/2023 5:03 AM 11/10/2023 7:22 PM Care Teams Manager Energy Relationship Specialty Start Date End Date Franco Carvalho MD [address] [place] [address] PCP - General 09/16/22
--- OUTSIDE RECORDS SUMMARY | 2025-06-17 14:39 | XMS_ITS | Clinical Summary ---
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 Gender Identity Not on file Sexual Orientation [...] COVID-19 Vaccine ( - 2023-2 5 season) 2025 Meningococcal B Vaccine Aged Out No l onger eligible based on patient's age to complete this topic Meningococcal Vaccine Aged Out No gianna nadeem eligible based on patient's age to complete this topic RSV Immunizations Under 20 Months Aged Out No longer eligible based on patient's age to complete this topic Insurance [facility] MEDICARE Care Teams Sales Representative Livestock Relationship Specialty Start Date End Date Franco Carvalho MD [address] [place] [address] PCP - General INTERNAL MEDICINE 09/02/16
--- OUTSIDE RECORDS SUMMARY | 2025-06-17 14:39 | XMS_ITS ---
Author Organization [facility] Address [address] [place] [address] Care Team Providers Care Cooling Pan Tender Name Role Phone Miles Reyes MD PhD Unavailable + [phone] Alejandro Aldana MD Unavailable + [phone] Gen Mcallister MD Unavailable [phone] Franco Carvalho MD Primary Care Provider [phone] Jacobo Marcos MD Unavailable [phone] Analia Becker MD Unavailable [phone] Active Problems Problem Noted Date Diagnosed Date [...] (01/09/2019): Added automatically from request for surgery [id number] Prostate cancer 03/07/2018 Cancer Staging:Clinical stage from 03/07/2018:Stage IIA(T2b, N0, M0, PSA: Less than 10, [place] 7) - Signed by Miles Reyes MD [...] Lifetime Dose Automatic Entry Manual Entr y Fluoro Time 15.7 minutes 0 minutes 15.7 minutes DLP 558 mGycm 558 mGycm 0 mGycm
--- OUTSIDE RECORDS SUMMARY | 2025-06-17 14:39 | XMS_ITS | Clinical Summary ---
Author Organization [facility] Address [address] [place] [address] Care Team Providers Care Epic Ambulatory Specialists Name Role Phone Miles Reyes MD PhD Unavailable + [phone] Alejandro Aldana MD Unavailable + [phone] Gen Mcallister MD Unavailable [phone] Franco Carvalho MD Primary Care Provider [phone] Jacobo Marcos MD Unavailable [phone] Analia Becker MD Unavailable [phone] Allergies Active Allergy Reactions Criticality Noted Date [...] (01/09/2019): Added automatically from request for surgery [id number] Prostate cancer 03/07/2018 Cancer Staging:Clinical stage from 03/07/2018:Stage IIA(T2b, N0, M0, PSA: Less than 10, [place] 7) - Signed by Miles Reyes MD on 03/07/2018 Overview (03/07/2018): Evaluated by Dr. Aldana, radiation therapy by Dr. 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 Gender Identity Not on file Sexual Orientation [...] Completed 11/09/2023 Medical Devices Implanted Type Area Radiology Supervisor Device Identifier Shelf Expiration Date Model / Serial / Lot [employer] [id number] Supera 5.5mm 6fr 150mm 120cm Otw Self Expandable Closed End Braid - [id number] Implanted:Qty: 1 on 12/19/2018 by Gen Mcallister MD at [facility] [employer] 10/19/2019 S-55-150- 12 0-P6 / / [id number] [employer] [id number] Supera 5.5mm 6fr 120mm 120cm Otw Self Expandable Closed End Latex Free - [id number] Implanted:Qty: 1 on 12/19/2018 by Gen Mcallister MD at [facility] [employer] 08/18/2019 S-55-120- 12 0-P6 / / [id number] [employer] [id number] Supera 5.5mm 6fr 80mm 120cm Mimetic Design Flexible Peripheral - [id number] Implanted:Qty: 1 on 12/19/2018 by Gen Mcallister MD at [facility] 04/18/2020 S-55-080- 12 0-P6 / / [id number] [place] [employer] [id number] Supera 5.5mm 6fr 40mm 120cm Otw Self Expandable Radiopaque Closed Latex Free - [id number] Implanted:Qty: 1 on 12/19/2018 by Gen Mcallister MD at [facility] 05/19/2020 S-55-040- 12 0-P6 / / [id number] Procedures Procedure Name Priority Date/Time Associated Diagnosis Comments COLONOSCOPY 10/26/2019 7:28 AM FACING SLITTER from Last 3 Months or Most Recently Relevant to Health Maintenance Results * COLONOSCOPY (10/26/2019 7:28 AM FACING SLITTER) Anatomical Region Laterality Modality Other Narrative Procedure Note Jadon Bhatti MD - 10/26/2019 7:28 AM CST [facility] Patient Name: Isaac Kovacs Procedure Date: 10/26/2019 7:28 AM Date of : 1945 Admit Type: Outpatient Age: 74 Gender: Male Attending MD: Jadon Bhatti M.D. Room: [facility] ENDOSCOPY ROOM 2 Note Status: Finalized Patient [...] scope was passed under direct vision.The Colonoscope CF-[id number] was introducedthrough the anus and advanced to [...] history of colonic polyps CPT copyright 2017 [place]. All rights reserved. The codes documented in this report are preliminary and upon truck driver rubbish collector reviewmay be revised to meet current compliance requirements. Recognized by the [place] [employer] Gastrointestinal [employer] for promoting quality in endoscopy Jadon Bhatti MD ENDOSCOPY PROCEDURES Final Re sult from Last 3 Months or Most Recently Relevant to Health Maintenance Insurance MEDICARE [facility] Address: [address] [address] [place] [address] [facility] MEDICARE [facility] MEDICARE [facility] MEDICARE [facility] Address: [address] [address] [place] [address] Advance Directives For more information, please contact: [phone] * Full Code (Latest Code Status on [...] 3:36 PM 12/19/2018 10:23 PM Care Teams Epic Ambulatory Specialists Relationship Specialty Start Date End Date Franco Carvalho MD [facility] [address] [address] PCP - General Internal Medicine 04/17/19 Miles Reyes MD PhD [address] [place] [address] [place] [address] Radiation Oncologist Radiation Oncology 03/07/18 Alejandro Aldana MD [address] [facility] [address] [place] [address] Referring Physician Urology 03/07/18 Gen Mcallister MD [facility] [address] [place] [address] Consulting Physician Cardiology 12/19/18 Jacobo Marcos MD [facility] [address] [place] [address] Consulting Physician Urology 11/08/19 Analia Becker MD [facility] [address] [place] [address] Consulting Physician Pulmonary Disease 05/09/21
== END 2025-06-17 14:04 | disposition home or self-care (01) ==
PROVIDERS: PCP Family Medicine; Visit Provider Internal Medicine Cardiovascular Disease
DX: I73.9 Peripheral vascular disease, unspecified (principal)
CPT/HCPCS: 93005

== ENCOUNTER 2025-06-19 10:06 | Outpatient (CLI) | payer MEDICARE, SELFPAY ==
--- OUTSIDE RECORDS SUMMARY | 2015-03-12 04:15 | XMS_ITS | Continuity of Care Document ---
[facility] Organization [facility] Address [address] [place] [address] Phone Care Team Providers Care Mason Tender Name Role Phone Sandoval An MD, MD Unavailable Unavailab le Allergies, Adverse Reactions, Alerts Substance Reaction Status Criticality magnesium Active No Information MEPERIDINE HCL Active No Informatio n tetracycline Active No Information Medications Medication Instructions Dosage Effective Dates (start - stop) Status Comments pantoprazole 40 mg tablet,delayed release take 1 tablet by oral route every day 40 MG - Active Plavix 75 mg tablet take 1 tablet by ora l route every day 75 MG - Active amlodipine 5 mg tablet take 1 tablet by oral route every day 5 MG - Active tramadol 50 mg tablet take 1 tablet by o ral route every 6 hours as needed 50 MG - Active atenolol 50 mg tablet take 1 tablet by o ral route every day 50 MG - Active pravastatin 40 mg tablet take 1 tablet by oral route every day 40 MG - Active gabapentin 100 mg capsule take 3 capsule by oral route 3 times every day 300 MG - Active lisinopril 10 mg tablet take 1 tablet by oral route every day 10 MG - Active venlafaxine 75 mg tablet take 1 tablet by oral route 2 times every day with food 75 MG - Active acyclovir 400 mg tablet take 1 tablet by oral route 3 times every day 400 MG - Active Spiriva with HandiHaler 18 mcg & inhalation capsules inhale 1 capsule by inhalation route every day - Active Foradil Aerolizer 12 mcg capsule with inhalation device inhale by inhalation route the contents of one capsule (12 mcg) at least 15 minutes before exertion as needed - Active Vitamin D3 400 unit capsule - Active Tylenol Extra Strength Rapid Release 500 mg tablet take 2 tablet by oral route every 6 hours as needed - Active aspirin 81 mg tablet,delayed release take 1 tablet by oral route every day 81 MG - Active prednisone 5 mg tablet take (0.5MG/KG) by oral route every day 0.5 MG/KG - Active clotrimazole 10 mg carol take 1 tablet by oral route 5 times every day dissolved slowly in the mouth 10 MG - Active Procedures Procedure Date Post-op Follow-up Visit No Charge Refraction After Cataract Laser Surgery Office/outpatient Visit, Est After Cataract Laser Surgery No Charge Glasses Check Post-op Follow-up Visit Post-op Follow-up Visit Post-op Follow-up Visit No Charge Refraction Remove Cataract, Post Op Care 4 Remove Cataract, Insert Lens,Comanaged O IOLMaster-Professional Post-op Follow-up Visit No Charge Refraction Remove Cataract, Post Op Care 4 Remove Cataract, Insert Lens,Comanaged S IOLMaster-Professional Eye Exam, New Patient No Charge Refraction IOLMaster-Technical No Charge Optomap Fundus Photos 014 Advance Directives Directive Yes / No Effective Date File Name No Information Encounters Encounter Description Practice Location Reason(s) For Visit Diagnoses Date Provider Providers Copied on Encounter [facility], [address], [place], [place], [id number], [place] tel:[phone] SEC [place] Professional 2 wk p/o YAG PC OD (chief complaint) Post op follow up 5 Juve Nick. [address], [address], [place], [address], [place]. tel:[phone] Referring Provider: Malu Daugherty MD, [address], [place], [address]. tel:[phone] [facility], [address], [place], [place], [address], [place] tel:[phone] SEC Gordo CHACON Professional Procedure (chief complaint) Pseudophakia After-catara ct, obscuring vision Alexis- 0-201 5 Juve Nick. [address], [address], [place], [address], [place]. tel:[phone] Referring Provider: Malu Daugherty MD, [address], [place], [address]. tel:[phone] Office/outpa tient Visit, Est [facility], [address], [place], [place], [id number], [place] tel:[phone] SEC Gordo CHACON Professional decreased vision (chief complaint) After-catara ct, obscuring vision Dec- 5-201 5 Juve Nick. [address], [address], [place], [place], [facility], [place]. tel:[phone] Referring Provider: Malu Daugherty MD, [address], [place], [address]. tel:[phone] [facility], [address], [place], [place], [id number], [place] tel:[phone] SEC Gordo CHACON Professional YAG PC OD (chief complaint) Post op follow up 4-201 5 Alex Ghotra. [address], [place], [place], [address], [place]. tel:[phone] Referring Provider: Malu Daugherty MD, [address], [place], [address]. tel:[phone] [facility], [address], [place], [place], [address], [place] tel:[phone] SEC Gordo CHACON Professional F/u exam, postop (chief complaint) Post op follow up 0-201 4 Alex Ghotra. [address], [place], [address], [place]. tel:[phone] Referring Provider: Malu Daugherty MD, [address] [place], [address]. tel:[phone] [facility], [address] [place] [address] [address], [place], [place], [address], tel:[phone] SEC Gordo CHACON Professional Post Op visit due to trouble (chief complaint) Post op follow up Oct-2 9-201 4 Wankno Brandin. [address], [facility] [address], [place], [place], [address], [place]. tel:[phone] Referring Provider: Malu Daugherty MD, [address], [place], [address]. tel:[phone] [facility], [address] [place] [address] [address], [place], [place], [address], [place] tel:[phone] SEC Gordo CHACON Professional 2 WK PO PHACO OD (chief complaint) Post op follow up Oct-2 2-201 4 Josekno Ghotra. [address] [facility] [employer] [address], [facility] [place], [id number], [place]. tel:[phone] Referring Provider: Malu Daugherty MD, [address], [place], [address]. tel:[phone] [facility], [address] [place] [address] [address], [place], [place], [address], [place] tel:[phone] SEC Gordo CHACON Professional F/u exam, postop (chief complaint) Post op follow up Oct-0 8-201 4 Alex Ghotra. [address] [facility], [facility] [address], [place], [place], [address], [place]. tel:[phone] Referring Provider: Malu Daugherty MD, [address] [place], [address]. tel:[phone] [facility], [address] [place] [address] [address], [place], [place], [address], [place] tel:[phone] [facility] No Information Jun-0 4 Brooklyn Alexander. [address], [address], [place], [place], [address], [place]. tel:[phone] Referring Provider: Malu Daugherty MD, [address], [place], [address]. tel:[phone] [facility], [address] [place] [address] [address], [place], [place], [address], [place] tel:[phone] SEC Vanessa Millan No Information Jun-0 6 4 Judy Alexander. [facility] [address], [address], [place], [place], [address], [place]. tel:[phone] Referring Provider: Malu Daugherty MD, [address], [place], [address]. tel:[phone] [facility], [address] [place], [place] [address] [address], [place], [place], [address], [place] tel:[phone] SEC Gordo CHACON Professional 2 week post op (chief complaint) Post op follow up Jun-0 4 Wankum Brandin. [address] [facility], [facility] [place], [address], [place]. tel:[phone] Referring Provider: Malu Daugherty MD, [address], [place], [address]. tel:[phone] [facility], [address] [place] [address] [address], [place], [place], [address], [place] tel:[phone] SEC Gordo CHACON Professional 1 day P/O (phaco w/IOL) (chief complaint) Post op follow up 4 Wankum Brandin. [address] [facility], [facility] [address], [place], [place], [address], [place]. tel:[phone] Referring Provider: Malu Daugherty MD, [address] [place], [address]. tel:[phone] [facility], [address] [place] [address] [address], [place], [place], [address], tel:[phone] [address] [facility] No Information 4 Judy Alexander. [address] [place], [place] [address], [address], [place], [place], [address], [place]. tel:[phone] Referring Provider: Malu Daugherty MD, [address], [place], [address]. tel:[phone] [facility], [address] [place] [address] [address], [place], [place], [address], [place] tel:[phone] SEC Vanessa Millan No Information 4 Judy Alexander. [facility] [address], [address], [place], [place], [address], [place]. tel:[phone] Referring Provider: Malu Daugherty MD, [address], [place], [address]. tel:[phone] [facility], [address] [place] [address] [address], [place], [place], [address], [place] tel:[phone] SEC [place] Professional Blurry vision (chief complaint) Senile nuclear cataract 4 Brooklyn Alexander. [facility] [address], [address], [place], [place], [address], [place]. tel:[phone] Referring Provider: Malu Daugherty MD, [address], [place], [address]. tel:[phone] [facility], [address] [place] [address] [address], [place], [place], [address], [place] tel:[phone] SEC [place] Professional No Information 0-201 4 Wankno Ghotra. [address], [address], [place], [place], [address], [place]. tel:[phone] Family History Family Member Type Diagnosis Age At Onset Mother Problem (finding) Corneal disease Payers Payer name Insurance type Covered constitution party ID Authoriza tion(s) No Information Social History Type Description Quantity Date Captured Comments Alcohol Use Details Unknown Caffeine Use Details Unknown Tobacco Use Status Smoking Status No Information Sex Male Chief Complaint And Reason For Visit From encounter dated '03/12/2015 09:15'. 2 wk p/o YAG PC OD (chief complaint). Description: The 69 year old male presents for 2 wk p/o YAG PC OD. Patient hx Phaco c PCIOL OU, and YAG PC OS. Patient c/o floaters OU. Patient says v/a is stable. Patient denies any pain or discomfort at this time. Patient not taking any gtts. Reason For Referral Reason For Referral No Information History Of Present Illness Encounter Date Complaint History Of Prese nt Illness 2 wk p/o YAG PC OD The 69 year o ld male presents for 2 wk p/o YAG PC OD. Patient hx Phaco c PCIOL OU, and YAG PC OS. Patient c/o floaters OU. Patient says v/a is stable. Patient denies any pain or discomfort at this time. Patient not taking any gtts. Procedure The 69 year old male presents for a post op to YAG PC OS and for a YAG PC OD. Patient c/o starburst and decreased vision OD. Patient c/o floaters OS. decreased vision The 69 year old male presents for a yag pc OS. Patient c/o blurry vision ou and c/o starbursts around lights. YAG PC OD The 68 year old male presents for YAG PC OD. Patient reports OD vision is mildly blurred and has terrible glare trouble while looking at any light source. Patient is not on any eye drops at this time.Patient believes that the bright light from the exam done after his cataract surgery caused his glare trouble. F/u exam, postop Patient present s for a post op CE OD. Patient c/o starburst ou. Post Op visit due to trouble The 68 year old male presents for Post Op visit due to trouble. Patient Hx Phaco w/IOL OD 06/25/2014 and OS 06/04/2014. Patient reports that when he looks at a source of light (light bulb, street light, headlight etc...) he notices a starburst coming from it. Patient states that he didn't have that problem until after his last visit. Patient is still using Prednisolone BID OD. 2 WK PO PHACO OD The 68 year old male presents for 2 WK PO PHACO OD. Patient reports no trouble with the Right Eye since surgery. Patient is still using Prednisolone QID OD. F/u exam, postop Patient present s for a 1 day post op CE OD. Patient to begin Poly and Pred qid OD and patient has refills from OS. Patient denies any pain or discomfort. 2 week post op The 68 year old male presents for a 2 week post op in the left eye. [place] in left is eye is great. Patient using Pred QID OS. C/O with OD is difficulty seeing in bright light and trouble reading small print. 1 day P/O (phaco w/IOL) The 68 y ear old male presents for a 1 day P/O (phaco w/IOL) in the left eye. Patient doing fine. Came in with gtts Poly and Pred to use as directed. Blurry vision The 68 year old male presents for a Cataract evaluation. Pt states that vision is getting blurry upclose and distance. Pt states he uses readers for upclose. Pt states that he feels the color of his eye is changing. Pt does not use any gtts at this time. 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 Pt states he has EZIO. Functional Status Date Functional Assessmen t No Information Instructions Date Instruction Additional Infor patrick - Good results after having Yag PC OD. RTC in 1 year for a complete exam. Related to See list of assessments above - Return in 1 year for a complet e exam Related to See list of assessments above - Discussed diagnosi s in detail with patient. Discussed risks and benefits of YAG PC OD and patient understands. Will proceed with laser today. RTC in 2 weeks for post op to YAG PC OD. Related to See list of assessments above - RTC in 2 weeks for post op to YAG PC OD Related to See list of assessments above - Discussed PCF form ation with pt, discussed YAG PC for treatment. R/a/b explained. Pt understands and proceed with Yag OS today. Return in 3-4 weeks for post op or sooner with any problems. Related to After-cataract, obscuring vision - Return in 3-4 week s with Sandoval An M.D. for post op exam Related to After-cataract, obscuring vision - Discussed dx with pt, and YAG PC for treatment. Pt understands visual requirements and aware at this time vision does not meet insurance guidelines for treatment and will monitor. Pt needs BAT and BCVA OU on return prior to dilation. Return in 3 months for Yag PC Evaluation. Related to Post op follow up - Return in 3 months with Brandin Johnson M.D. for follow up exam Related to Post op follow up - Discussed diagnosi s with patient. Patient understands treatment is not recommended at this time. Return in 1 month for Yag PC OD. Related to Post op follow up - Return in 1 month with Brandin Johnson M.D. for Yag PC OD. Related to Post op follow up - Discussed diagnosi s with pt. No treatment needed at this time. Will monitor in 6-8 weeks to determine if treatment is needed. Related to Post op follow up - 6-8 weeks for post op visit Re lated to Post op follow up - OTC ok Related to Post op follow up - 6mths Related to Post op follow up - keep appt Related to Post op follow up - start drops Related to Post op follow up - finish drops Related to Post op follow up - ok for surg od Related to Post op follow up - start drops Related to Post op follow up - keep appt Related to Post op follow up - Cataracts account for the patient's complaints. Discussed all risks, benefits, procedures and recovery. Patient understands changing glasses will not improve vision. Patient desires to have surgery, recommend phacoemulsification with intraocular lens. Pt wants standard and aware he will need specs after CE Educational materials provided:about today's exam. Related to Senile nuclear cataract - SCHED CE OS 1st Related to Sen ile nuclear cataract Assessments Type Assessment Date assessment Post op follow up Patient Care Teams Name Effective Dates (start - stop) Status Members No Information
--- NOTE | ~2025-06-19 | US_ITS ---
EXAMINATION: US art doppler w tea [facility] DATE: 06/19/2025 10:55 INDICATION: Peripheral vascular disease TECHNIQUE: Segmental pressures and plethysmographic and Doppler waveforms of the brachial and lower extremity arteries were obtained. COMPARISON: None. FINDINGS: Right and left brachial artery pressures of 173 mm Hg and 164 mm Hg, respectively, are concordant (normal difference <= 30 mmHg). The right ankle-brachial index (ETIENNE) is 0.84 (normal >= 0.9-1). The right great toe-brachial index (TBI) is 0.67 (normal >= 0.6-0.8). Arterial waveforms demonstrate normal brisk systolic upstrokes at the right common femoral, popliteal, posterior tibial and dorsalis pedis arteries. Cardiac arrhythmia is present. The left ETIENNE is 0.89. The left TBI is 0.68. Arterial waveforms demonstrate normal brisk systolic upstrokes at the left common femoral, popliteal, posterior tibial and dorsalis pedis arteries. IMPRESSION: 1. Mild arterial occlusive disease to the bilateral lower limbs with relatively decreased bilateral ABIs but normal bilateral ABIs. 2. Cardiac arrhythmia is present. Correlate with EKG. Reviewed, dictated and finalized at location A.
--- OUTSIDE RECORDS SUMMARY | 2025-06-19 10:48 | XMS_ITS | Clinical Summary ---
Author Organization [facility] Address [address] [place] [address] Care Team Providers Care Skill Training Program Coordinator Name Role Phone Miles Reyes MD PhD Unavailable + [phone] Alejandro Aldana MD Unavailable + [phone] Gen Mcallister MD Unavailable [phone] Franco Carvalho MD Primary Care Provider [phone] Jacobo Marcos MD Unavailable [phone] Analia Becker MD Unavailable [phone] Allergies Active Allergy Reactions Criticality Noted Date [...] (01/09/2019): Added automatically from request for surgery [id number] Prostate cancer 03/07/2018 Cancer Staging:Clinical stage from [...] on file 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 Gender Identity Not on file Sexual Orientation [...] Completed 11/09/2023 Medical Devices Implanted Type Area Economic Consultant Device Identifier Shelf Expiration Date Model / Serial / Lot [employer] V[employer] [id number] Supera 5.5mm 6fr 150mm 120cm Otw Self Expandable Closed End Braid - [id number] Implanted:Qty: 1 on 12/19/2018 by Gen Mcallister MD at [facility] [employer] 10/19/2019 S-55-150- 12 0-P6 / / [id number] [employer] [id number] Supera 5.5mm 6fr 120mm 120cm Otw Self Expandable Closed End Latex Free - [id number] Implanted:Qty: 1 on 12/19/2018 by Gen Mcallister MD at [facility] [employer] 08/18/2019 S-55-120- 12 0-P6 / / [id number] [employer] [id number] Supera 5.5mm 6fr 80mm 120cm Mimetic Design Flexible Peripheral - [id number] Implanted:Qty: 1 on 12/19/2018 by Gen Mcallister MD at [facility] Vascular 04/18/2020 S-55-080- 12 0-P6 / / [id number] [place] [employer] [id number] Supera 5.5mm 6fr 40mm 120cm Otw Self Expandable Radiopaque Closed Latex Free - [id number] Implanted:Qty: 1 on 12/19/2018 by Gen Mcallister MD at [facility] Vascular 05/19/2020 S-55-040- 12 0-P6 / / [id number] Procedures Procedure Name Priority Date/Time Associated Diagnosis Comments COLONOSCOPY 10/26/2019 7:28 AM MANAGER HELPDESK from Last 3 Months or Most Recently Relevant to Health Maintenance Results * COLONOSCOPY (10/26/2019 7:28 AM MANAGER HELPDESK) Anatomical Region Laterality Modality Other Narrative Procedure Note Jadon Bhatti MD - 10/26/2019 7:28 AM CST [facility] Patient Name: Isaac Kovacs Procedure Date: 10/26/2019 7:28 AM Date of : 1945 Admit Type: Outpatient Age: 74 Gender: Male Attending MD: Jadon Bhatti M.D. Room: [facility] ENDOSCOPY ROOM 2 Note Status: Finalized Patient [...] scope was passed under direct vision.The Colonoscope CF-[id number] was introducedthrough the anus and advanced to [...] history of colonic polyps CPT copyright 2017 [employer]. All rights reserved. The codes documented in this report are preliminary and upon butt sawyer reviewmay be revised to meet current compliance requirements. Recognized by the [place] [employer] for Gastrointestinal Endoscopy for promoting quality in endoscopy Jadon Bhatti MD ENDOSCOPY PROCEDURES Final Re sult from Last 3 Months or Most Recently Relevant to Health Maintenance Insurance MEDICARE [facility] Address: [address] [address] [place] [address] [facility] MEDICARE [facility] MEDICARE [facility] MEDICARE [facility] Address: [address] [address] [place] [address] Advance Directives For more information, please contact: [phone] * Full Code (Latest Code Status on [...] 3:36 PM 12/19/2018 10:23 PM Care Teams Skill Training Program Coordinator Relationship Specialty Start Date End Date Franco Carvalho MD [facility] [address] [address] PCP - General Internal Medicine 04/17/19 Miles Reyes MD PhD [address] [place] [address] [place] [address] Radiation Oncologist Radiation Oncology 03/07/18 Alejandro Aldana MD [address] [facility] [address] [place] [address] Referring Physician Urology 03/07/18 Gen Mcallister MD [facility] [address] [place] [address] Consulting Physician Cardiology 12/19/18 Jacobo Marcos MD [facility] [address] [place] [address] Consulting Physician Urology 11/08/19 Analia Becker MD [facility] [address] [place] [address] Consulting Physician Pulmonary Disease 05/09/21
--- OUTSIDE RECORDS SUMMARY | 2025-06-19 10:48 | XMS_ITS | Clinical Summary ---
Author Organization [facility] Address [address] [place] [address] Care Team Providers Care Hemodialysis Patient Care Specialist Name Role Phone Franco Carvalho MD Primary Care Provider [phone] Source Comments [facility],non-owned Affiliates and Associated Physician Practices is amultiple site organization consisting of ambulatory clinics and hospital sitesin [place], [place], [place] and [place]. This disclosure is being madepursuant to the Care Everywhere program and may not contain all information available regarding this patient. Last updated 18.[facility] Allergies Active Allergy Reactions Criticality Noted Date [...] tablet by mouth at bedtime Active Tiotropium [place]-Olodat marcella (Stiolto Respimat) 2.5-2.5 MCG/ACT Inhale 2 [...] care, and heating? Not very hard 11/10/2023 [facility] [place] of Occupat ional Health - Occupational Stress [...] place to sleep or slept in a retirement (including now)? 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 Pulse 79 11/10/2023 4:05 PM FISH HOUSE WORKER Temperature 36.7 C (98.1 F) 11/10/2023 8:00 AM FISH HOUSE WORKER Respiratory Rate 17 11/10/2023 4:05 PM FISH HOUSE WORKER Oxygen Saturation 98% 11/10/2023 4:05 PM FISH HOUSE WORKER Inhaled Oxygen Concentration - - Weight 74 kg (163 lb 2.3 oz) 11/10/2023 4:00 AM FISH HOUSE WORKER Height 180.3 cm (5' 10.98) 11/09/2023 9:[address] Body Mass Index 22.76 11/09/2023 9:24 AM FISH HOUSE WORKER Plan of Treatment Health Maintenance Due Date [...] HEPATITIS C ANTIBODY Routine 07/24/2013 3:19 PM FISH HOUSE WORKER Polyarthritis from Last 3 Months or Most Recently Relevant to Health Maintenance Results * HEPATITIS C ANTIBODY (07/24/2013 3:19 PM FISH HOUSE WORKER) Hepatitis C Antibody <0.1 0.0 - 0.9 s/co ratio [facility] INSURANCE BILL Comment: Negative: < 0.8 Indeterminate 0.8 - 0.9 Positive: > 0.9 . In order to reduce the incidence of a false positive result, the CDC recommends that all s/co ratios between 1.0 and 10.9 be confirmed by a more specific supplemental or PCR testing. [facility] offers HCV Ab w/Reflex to Verification test #[id number]. Blood specimen (specimen) BLOOD SPECIMEN / Unknown 07/24/2013 3:19 PM FISH HOUSE WORKER 07/24/2013 5:38 PM FISH HOUSE WORKER Narrative Resulting Agency Comment [facility] [address] [facility] [id number] Isaac Redding MD LAB - CHEMISTRY ORDERABLES Alisha chandra Result [facility] INSURANCE BILL [address] [place] [address] from Last 3 Months or Most Recently Relevant to Health Maintenance Insurance MEDICARE [facility] MEDICARE [facility] TPL THIRD DEMOCRAT LIABILITY MEDICARE [facility] ID MEDICAID - [facility] PLAN [facility] Advance Directives * Full Code (Latest Code Status on File) Date Activated Date Inactivated Comments 11/09/2023 5:03 AM 11/10/2023 7:22 PM Care Teams Hemodialysis Patient Care Specialist Relationship Specialty Start Date End Date Franco Carvalho MD [address] [place] [address] PCP - General 09/16/22
--- OUTSIDE RECORDS SUMMARY | 2025-06-19 10:48 | XMS_ITS ---
Author Organization [facility] Address [address] [place] [address] Care Team Providers Care Processing Archivist Name Role Phone Miles Reyes MD PhD Unavailable + [phone] Alejandro Aldana MD Unavailable + [phone] Gen Mcallister MD Unavailable [phone] Franco Carvalho MD Primary Care Provider [phone] Jacobo Marcos MD Unavailable [phone] Analia Becker MD Unavailable [phone] Active Problems Problem Noted Date Diagnosed Date [...] (01/09/2019): Added automatically from request for surgery [id number] Prostate cancer 03/07/2018 Cancer Staging:Clinical stage from 03/07/2018:Stage IIA(T2b, N0, M0, PSA: Less than 10, [place] 7) - Signed by Miles Reyes MD on 03/07/2018 Overview (03/07/2018): Evaluated by Dr. Aldana, radiation therapy by Dr. 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
--- OUTSIDE RECORDS SUMMARY | 2025-06-19 10:48 | XMS_ITS | Clinical Summary ---
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
== END 2025-06-19 10:07 | disposition home or self-care (01) ==
LOC: CHSIMG 10:07
PROVIDERS: PCP Family Medicine; Visit Provider Internal Medicine Cardiovascular Disease
DX: I73.9 Peripheral vascular disease, unspecified (principal); I49.9 Cardiac arrhythmia, unspecified
CPT/HCPCS: 93923